=== PATIENT | female | born 1950 | race Caucasian/White ===

== ENCOUNTER → 2024-10-23 | Outpatient (CLI) | payer MEDICARE, BC, SELFPAY ==
[2024-10-23 17:57] LABS: Alanine Aminotransferase 20 U/L (10-49); Albumin, Serum 4.4 gm/dL (3.4-4.8); Albumin/Globulin Ratio 2.3 (1.2-2.2); Alkaline Phosphatase 90 U/L (46-116); Anion Gap 5 (7-16); Aspartate Amino Transferase 29 U/L (0-34); BUN/Creatinine Ratio 16 Ratio (12-20); Bilirubin,Total 0.2 mg/dL (0.3-1.2); Blood Urea Nitrogen 16 mg/dL (9-23); Calcium 9.3 mg/dL (8.3-10.6); Calcium (Corrected) 9.3 mg/dL (8.5-10.1); Carbon Dioxide 28.8 mMol/L (20.0-31.0); Chloride 105 mMol/L (98-107); Globulin 1.9 gm/dL (2.3-3.5); Glucose 143 mg/dL (74-106); Osmolality,Calculated 280 (275-295); Potassium 4.3 mMol/L (3.4-5.1); Sodium 139 mMol/L (136-145); Total Protein 6.3 gm/dL (5.7-8.2); eGFR 58 See Note
[2024-10-23 17:59] LABS: Vitamin D 25 Hydroxy Total 91.1 ng/mL (7.3-40.2)
== END | disposition home or self-care (01) ==
LOC: COPL 16:20
PROVIDERS: PCP Family Medicine; Referring Provider Internal Medicine; Visit Provider Internal Medicine
DX: F34.1 Dysthymic disorder (principal); M51.35 Other intervertebral disc degeneration, thoracolumbar region; M81.0 Age-related osteoporosis without current pathological fracture; S32.050A Wedge compression fracture of fifth lumbar vertebra, initial encounter for closed fracture; X58.XXXA Exposure to other specified factors, initial encounter
CPT/HCPCS: 36415; 80053; 82306

== ENCOUNTER → 2024-11-14 | Outpatient (CLI) | payer MEDICARE, BC, SELFPAY ==
--- NOTE | 2024-11-14 | XR_ITS ---
Examination: PA lateral chest 2 views TECHNIQUE: Upright PA lateral chest 2 views Exam date and time: November 14, 2024 0725 hours Comparison January 10, 2023 INDICATIONS: Coughing 6 weeks, diagnosis coccidiomycosis. FINDINGS: Bilateral interstitial disease throughout the lungs with prominent hilar regions No major cardiac enlargement Prominent osteopenia IMPRESSION: Bilateral interstitial disease throughout the lungs, differential would include pulmonary fibrosis Consider high resolution CT chest without contrast follow-up
[2024-11-14 08:08] LABS: Basophils % (Auto) 1 % (0-2.5); Eosinophils # (Auto) 0.2 Thou/mm3 (0.0-0.5); Eosinophils % (Auto) 4 % (0-10); Hemoglobin 11.7 g/dL (12.0-16.0); Immature Granulocytes % (Auto) 0 % (0-0); Immature Granulocytes Auto 0.01 Thou/mm3 (0.00-0.00); Lymphocytes # (Auto) 1.5 Thou/mm3 (1.0-4.8); Lymphocytes % (Auto) 27 % (10-50); Mean Corpuscular HGB Conc 32.5 g/dl (31.0-37.0); Mean Corpuscular Hemoglobin 31.2 pg (25.0-35.0); Mean Corpuscular Volume 96 fL (80-100); Monocytes # (Auto) 0.6 Thou/mm3 (0.0-0.8); Monocytes % (Auto) 10 % (0-12); Neutrophils # (Auto) 3.1 Thou/mm3 (1.8-7.7); Neutrophils % (Auto) 58 % (37-80); Nucleated Red Blood Cell % 0 /100 WBC (0); Platelet Count 182 Thou/mm3 (140-440); Red Blood Count 3.75 Miln/mm3 (4.00-5.20); White Blood Count 5.4 Thou/mm3 (3.6-11.0)
[2024-11-14 08:30] LABS: Alanine Aminotransferase 27 U/L (10-49); Albumin, Serum 4.2 gm/dL (3.4-4.8); Albumin/Globulin Ratio 2.2 (1.2-2.2); Alkaline Phosphatase 85 U/L (46-116); Anion Gap 6 (7-16); Aspartate Amino Transferase 25 U/L (0-34); BUN/Creatinine Ratio 16 Ratio (12-20); Bilirubin,Total 0.4 mg/dL (0.3-1.2); Blood Urea Nitrogen 13 mg/dL (9-23); Calcium 9.2 mg/dL (8.3-10.6); Calcium (Corrected) 9.2 mg/dL (8.5-10.1); Cardiac Risk Estimate 2.7 RATIO (3.7-5.6); Chloride 105 mMol/L (98-107); Cholesterol 179 mg/dL (132-200); Creatinine (Component) 0.8 mg/dL (0.6-1.3); Globulin 1.9 gm/dL (2.3-3.5); Glucose 89 mg/dL (74-106); HDL Cholesterol 66 mg/dL (40-60); LDL Cholesterol,Calculated 82 mg/dL (0-130); Osmolality,Calculated 280 (275-295); Potassium 4.4 mMol/L (3.4-5.1); Sodium 141 mMol/L (136-145); Total Protein 6.1 gm/dL (5.7-8.2); Triglycerides 154 mg/dL (30-150); eGFR > 60 See Note
[2024-11-14 08:32] LABS: Folate 21.37 ng/mL (>5.38); Vitamin B12 709 pg/mL (211-911)
[2024-11-14 08:35] LABS: Ferritin 40 ng/mL (7.3-270.7); Total Iron Binding Capacity 291 mcg/dL (250-425)
[2024-11-14 08:44] LABS: Iron 98 mcg/dL (50-170); Percent Iron Saturation 33 % (20-55); Unsaturated Iron Binding 193 (225-295)
[2024-11-14 09:53] LABS: Amphetamine/Methamp Scrn,U Negative (Negative); Barbiturate Screen,Urine Positive (Negative); Benzodiazepines Screen,Urine Negative (Negative); Benzoylecgonine Screen, Ur Negative (Negative); Fentanyl Screen,Urine Negative (Negative); Opiate Screen,Urine Positive (Negative); THC Screen,Urine Negative (Negative)
[2024-11-14 14:26] LABS: Cocci Serology, IgM Negative (Negative)
[2024-11-15 14:49] LABS: Cocci Serology, IgG Negative (Negative)
== END | disposition home or self-care (01) ==
LOC: CDIM 06:48 → COPL 07:52
PROVIDERS: PCP Family Medicine; Referring Provider Internal Medicine; Visit Provider Radiology Diagnostic Radiology
DX: J84.89 Other specified interstitial pulmonary diseases (principal); R05.9 Cough, unspecified; G62.9 Polyneuropathy, unspecified; E78.5 Hyperlipidemia, unspecified; Z79.891 Long term (current) use of opiate analgesic; D64.9 Anemia, unspecified
CPT/HCPCS: 36415; 71046; 80053; 80061; 80307; 82607; 82728; 82746; 83540; 83550; 85025; 86331; 86635

== ENCOUNTER → 2024-11-26 | Outpatient (CLI) | payer MEDICARE, BC, SELFPAY ==
--- NOTE | 2024-11-26 11:00 | XR_ITS ---
Examination: CT chest, without intravenous contrast. Sagittal and coronal 2-D reconstructions. Exam date and time: November 26, 2024 1101 hours INDICATIONS: Coughing wheezing beginning one year ago, subpleural fibrosis with bronchiectasis on CT chest August 18, 2021 CTDI:vol (mGy) 8.85 DLP: (mGycm) 278 Technique: Multiple 3.0 mm axial sections of the chest to been obtained. Bone and lung density settings are obtained. Sagittal and coronal 2-D reconstructions have been obtained. Low dose protocols were performed. One or more of the following dose reduction techniques were used; automated exposure control, adjustment of the mA and/or KV according to patient size, use of iterative reconstruction technique. Findings: No thoracic aortic aneurysm dilatation or dissection Main pulmonary artery segment is enlarged, 34 mm Moderate to severe bilateral pulmonary fibrosis Benign calcified granuloma left lower lobe Large retrocardiac hernia, most of the stomach is in the hemithorax No visualized liver or splenic lesions Absent gallbladder Fatty replacement pancreas Mild bilateral hydronephrosis, clinical correlation advised IMPRESSION: Pulmonary artery hypertension Moderate to severe bilateral pulmonary fibrosis Mild bilateral hydronephrosis, consider CT scan abdomen pelvis without contrast follow-up
== END | disposition home or self-care (01) ==
LOC: CCTX 10:34
PROVIDERS: PCP Family Medicine; Referring Provider Family Medicine; Visit Provider Family Medicine
DX: I27.21 Secondary pulmonary arterial hypertension (principal); J84.10 Pulmonary fibrosis, unspecified; N13.30 Unspecified hydronephrosis
CPT/HCPCS: 71250

== ENCOUNTER → 2024-11-27 | Outpatient (CLI) | payer MEDICARE, BC, SELFPAY ==
[2024-11-27 08:36] LABS: Quantiferon-TB* See Sep Rpt
[2024-11-27 09:52] LABS: Calcium 9.5 mg/dL (8.3-10.6)
[2024-11-27 09:56] LABS: Vitamin D 25 Hydroxy Total 71.8 ng/mL (7.3-40.2)
[2024-12-03 06:58] LABS: Vitamin D, 25-OH, D2 <4 ng/mL; Vitamin D, 25-OH, D3 73 ng/mL; Vitamin D, 25-OH, Total 73 ng/mL (30-100)
== END | disposition home or self-care (01) ==
LOC: COPL 08:13
PROVIDERS: PCP Family Medicine; Referring Provider Nurse Practitioner; Visit Provider Internal Medicine
DX: R05.9 Cough, unspecified (principal); E67.3 Hypervitaminosis D
CPT/HCPCS: 36415; 82306; 82310; 86480

== ENCOUNTER 2025-03-30 05:47 | Inpatient (IN) | payer MEDICARE, BC, SELFPAY ==
[2025-03-30] VITALS (18 sets, daily range): BP systolic 93–124; BP diastolic 59–90; PULSE 96–120; RESP 20–47; TEMP 36.1–37.2; O2SAT 93–113; BMI 22.7
--- NOTE | 2025-03-30 06:14 | EKG_ITS ---
[facility] Test Date: 2025-03-30 Pat Name: CLAUS ALVAREZ Department: Room: - Gender: Female [place]ler [place]: : 1950 Requested By: Fox Jeffrey Order Number: [id number] Reading MD: Fox Jeffrey Measurements Intervals [place] Rate: 119 P: AL: QRS: -6 QRSD: 70 T: -25 QT: 322 QTc: 454 Interpretive Statements ATRIAL FLUTTER/TACHYCARDIA WITH RAPID VENTRICULAR RESPONSE ST DEVIATION AND MODERATE T-WAVE ABNORMALITY, CONSIDER ANTERIOR ISCHEMIA [-0.1+ mV T-WAVE IN V3/V4] No previous ECG available for comparison /store/S0/[id number].pdf
--- NOTE | 2025-03-30 06:30 | XR_ITS ---
Examination: AP chest single view TECHNIQUE: AP portable upright chest single view Date and time: March 30, 2025 0706 hours Comparison November 14, 2024 INDICATIONS: Shortness of breath today FINDINGS: Bilateral pulmonary fibrosis pattern Superimposed bilateral pneumonia Mild enlargement cardiac contour Suspicious for retrocardiac gastric hernia Old fracture deformity right clavicle IMPRESSION: Bilateral pulmonary fibrosis pattern, please see the CT chest report November 26, 2024 Diffuse superimposed bilateral pneumonia
--- NOTE | 2025-03-30 06:43 | EDNOTE_ITS ---
ED SOB =RME/HPI General Chief Complaint: Shortness of Breath/Dyspnea Stated Complaint: SOB Time Seen by Provider: 03/30/25 06:15 Arrival date/time: 03/30/25 05:47 RME / HPI RME / HPI Narrative: 75-year-old female with a history of hypertension who has had 2 months of worsening dyspnea on exertion who now presents with 5 days of acute worsening of the shortness of breath. She states this is now causing her to feel weak and having difficulty breathing both during the day with exertion and while at night. She also notes a new dry cough in these last 5 days. She denies fevers chills or sweats. She denies sick contact. She initially seen her primary care doctor approximately 2 months ago and was started on albuterol with minimal improvement. On follow-up visit she was advanced to [facility] and given 2 days of steroids . She notes mild improvement at that point. She denies chest pain. She denies nausea vomiting or diarrhea. She denies dysuria. She denies lower extremity swelling. Patient denies pulmonary history prior to 2 months, no history of asthma, no smoking history. MD Complaint: shortness of breath and cough Related Data Home oxygen amount: none Home Medications ?Medication ?Instructions ?Recorded ?Confirmed atorvastatin 10 mg tablet 10 mg PO QDAY 06/18/2306/18 hydrocodone 7.5 mg-acetaminophen 1 tab PO Q6H PRN Back Pain 06/18/23 06/18/23 325 mg tablet Held on 06/18/23. Instructions: Resume on 06/19/23. losartan 50 mg tablet 50 mg PO BID 06/18/23 omeprazole 20 mg capsule,delayed 20 mg PO QDAY 3 06/18/23 release Allergies Allergy/AdvReac Type Severity Reaction Status Date / Time meperidine Allergy Mild Anxiety Verified 03/30/25 06:14 Review of Systems Review of Systems Systems Reviewed: All systems reviewed, normal except as documented Past Medical History Past Medical History CARDIAC: Positive Cardiac Disorders, Hypercholesterolemia and Hypertension GASTROINTESTINAL: Positive Gastrointestinal Disorders and Gastroesophageal Reflux Disease MUSCULOSKELETAL: Positive Musculoskeletal Disorders Family History FAMILY HISTORY: Positive Family Cancer Surgical History SURGICAL: Positive Nose Surgery (sinus surgery) and Tonsillectomy Social History SMOKING STATUS: Never smoker ED Exam Narrative Physical exam: GENERAL APPEARANCE: AxOx4, in moderate respiratory distress, speaking 3-4 word sentences. HEENT: NC, AT. MMM. EOMI, no scleral icterus, no pallor HEART: Tachycardic and regular rhythm, normal S1/S1, no m/r/g LUNGS: Diminished breath sounds in all lung sharma, faint expiratory and i nspiratory sounds/wheezing on the left lung field very diminished on the right. No crackles or wheezes are heard. ABDOMEN: Soft, nontender, nondistended with good bowel sounds heard. BACK: No midline C/T/L spine pain or deformity, No CVAT, no obvious deformity. EXTREMITIES: Without cyanosis, clubbing or trace lower extremity pitting edema. MUSCULOSKELETAL: FROM of all major joints, no chest tenderness NEUROLOGICAL: Grossly nonfocal. Alert and oriented, moving all 4 extremities. CN not formally tested but appear grossly intact. Observed to ambulate with normal gait. Skin: Warm and dry without any rash. Course Quality Measures none Orders Category Date Time Status Bedside COVID-19 Antigen Test NOW Care 03/30/25 07:15 Active COVID-19 Screening Questionnaire NOW Care 03/30/25 08:13 Active Decision to Admit X1 Care 03/30/25 08:13 Completed EKG (ED ONLY) *Do not use* NOW Care 03/30/25 06:14 Completed IV [Insert IV] NOW Care 03/30/25 06:40 Active EKG (ED Only) Stat Exams 03/30/25 06:14 Ordered XR chest 1V portable Stat Exams 03/30/25 06:30 Completed ABG [Arterial Blood Gas] Stat Lab 03/30/25 08:27 Completed BNP [B-Type Natriuretic Peptide] Stat Lab 03/30/25 06:42 Completed Blood Culture (Lab) Stat Lab 03/30/25 08:00 Received CBC Stat Lab 03/30/25 06:42 Completed CMP [Comprehensive Metabolic Panel] Stat Lab 03/30/25 06:42 Completed Lactate (Lactic Acid) Stat Lab 03/30/25 08:05 Results Procalcitonin Stat Lab 03/30/25 08:05 Completed Troponin I Stat Lab 03/30/25 06:42 Completed ALBUTEROL RT 0.5ml [Proventil Rt 0.5ml] Med 03/30/25 06:30 Discontinued 10 mg INH X1 ONE Doxycycline [Vibramycin] Med 03/30/25 07:40 Discontinued 100 mg PO X1 ONE Furosemide Inj [Lasix Inj] Med 03/30/25 07:55 Discontinued 40 mg IVP X1 ONE MethylPREDNISolone.* [SoluMEDROL Inj] Med 03/30/25 06:30 Discontinued 125 mg IVP X1 ONE Sodium Chloride 0.9% 500 ml [Ns] 500 ml Med 03/30/25 06:33 Discontinued IV 999 mls/hr Sodium Chloride Rt Marisa 0.9% [NS Rt Marisa 0.9%] Med 03/30/25 06:30 Active 3 ml INH PRN PRN cefTRIAXone [Rocephin] 1,000 mg Med 03/30/25 07:40 Discontinued Lidocaine 1% 20 ml [Xylocaine 1% 20 ML] 2.1 ml IM X1 cefTRIAXone/D5w 1gm IV premix [Rocephin/D5w 1gm IV Med 03/30/25 08:34 Discontinued premix] 1 gm in 50 ml IV X1 BiPAP / CPAP NOW RT 03/30/25 08:06 Active Vital Signs Vital signs: Vital Signs Temperature 97.6 F 03/30/25 05:55 Pulse Rate 120 H 03/30/25 05:55 Respiratory Rate 20 03/30/25 05:55 Blood Pressure 96/67 03/30/25 05:55 Pulse Oximetry (%) 96 03/30/25 05:55 Oxygen Delivery Method Nasal Cannula 03/30/25 05:55 Oxygen Flow Rate 6 03/30/25 05:55 Shortness of Breath / Dyspnea Patient data External records reviewed:: [facility] previous records (I reviewed ED visit on 06/18/2023 ) and EMS form Clinical information provided by:: patient and EMS Social determinants that could affect healthcare access:: none Patient has the following chronic illnesses:: Hypertension, hyperlipidemia How is presenting disease/condition affected by chronic disease/condition?: uneffected by Evaluation data The following diagnostics were reviewed and interpreted by me:: lab results, radiology exam(s) and EKG tracing(s) (EKG 03/30/2025 @ 0625. Sinus tachycardia, MAT, rate 119, no STEMI. ) Lab and/or radiology exams considered but not ordered:: None Interpretation Summary: Ordering Physician: Fox Jeffrey MD Date of Service: 03/30/25 Procedure(s): XR chest 1V portable Accession Number(s): [id number] cc: Fox Jeffrey MD; Sajan Corley MD; Catracho Vicente MD~ Examination: AP chest single view TECHNIQUE: AP portable upright chest single view Date and time: March 30, 2025 0706 hours Comparison November 14, 2024 INDICATIONS: Shortness of breath today FINDINGS: Bilateral pulmonary fibrosis pattern Superimposed bilateral pneumonia Mild enlargement cardiac contour Suspicious for retrocardiac gastric hernia Old fracture deformity right clavicle IMPRESSION: Bilateral pulmonary fibrosis pattern, please see the CT chest report November 26, 2024 Diffuse superimposed bilateral pneumonia Dictated By:Sajan Corley MD Signed By:<Electronically signed by Sajan Corley MD in OV>03/30/25 0748 Medications / Prescriptions Medications or Prescriptions considered but not ordered:: None Medication administrations:: Medication Administration History Acetaminophen (Acetaminophen 325 Mg Tablet) 650 mg PO Q6H PRN PRN Reason: Fever >101.5 Stop: 04/29/25 08:56 Albuterol/Ipratropium (Albuterol/Ipratropium (Duoneb) Rt Marisa 3 Ml Nebu) 3 ml INH Q4HRRT [facility] Stop: 04/29/25 10:59 Last Admin: 03/30/25 10:21 Dose: 3 ml Documented By: TEE Enoxaparin Sodium (Enoxaparin Sod Inj 40 Mg/0.4 Ml Syringe) 40 mg SC QDAY [facility] Stop: 04/13/25 08:59 Last Admin: 03/30/25 09:33 Dose: Not Given Documented By: DORIAN Non-Admin Reason: Patient Refused Ceftriaxone Sodium/Dextrose (Rocephin/D5w 1gm Iv Premix) 1 gm in 50 mls @ 100 mls/hr IV QDAY [facility] Stop: 04/07/25 08:59 Doxycycline Hyclate 100 mg/ (Sodium Chloride) 100 mls @ 100 mls/hr IV BID [facility] Stop: 04/06/25 20:59 Methylprednisolone Sodium Succinate (Methylprednisolone Sod Succ 62.5 Mg/Ml 2ml Vial) 40 mg IVP Q8H [facility] Stop: 04/06/25 09:59 Ondansetron HCl (Ondansetron Inj 2 Mg/Ml Inj 2 Ml) 4 mg IVP Q6H PRN; Protocol PRN Reason: NAUSEA OR VOMITING Stop: 04/29/25 08:56 Last Admin: 03/30/25 10:11 Dose: 4 mg Documented By: LUIS Sennosides (Senna Tablet) 1 tab PO QDAY PRN; Protocol PRN Reason: constipation Stop: 04/29/25 08:56 Sodium Chloride (Sodium Chloride Rt Marisa 0.9% 3 Ml Nebu) 3 ml INH PRN PRN PRN Reason: SOLN Stop: 04/29/25 06:29 Discontinued Medications Albuterol (Albuterol Rt 2.5 Mg/0.5 Ml Nebu) 10 mg INH X1 ONE Stop: 03/30/25 06:31 Last Admin: 03/30/25 07:00 Dose: 10 mg Documented By: TEE Ceftriaxone Sodium 1,000 mg/ (Lidocaine HCl 2.1 ml) 0 mg IM X1 ONE Stop: 03/30/25 07:41 Last Admin: 03/30/25 08:34 Dose: Not Given Documented By: DORIAN Non-Admin Reason: Discontinued Doxycycline Hyclate (Doxycycline 100 Mg Tablet) 100 mg PO X1 ONE Stop: 03/30/25 07:41 Last Admin: 03/30/25 08:14 Dose: 100 mg Documented By: DORIAN Furosemide (Furosemide Inj 10 Mg/Ml 4ml Vial) 40 mg IVP X1 ONE Stop: 03/30/25 07:56 Last Admin: 03/30/25 08:13 Dose: 40 mg Documented By: DORIAN Sodium Chloride (Ns) 500 mls @ 999 mls/hr IV .Q31M ONE Stop: 03/30/25 07:03 Last Infusion: 03/30/25 08:35 Dose: Infused Documented By: Admin: 03/30/25 07:20 Dose: 999 mls/hr Documented By: DORIAN Ceftriaxone Sodium/Dextrose (Rocephin/D5w 1gm Iv Premix) 1 gm in 50 mls @ 100 mls/hr IV X1 ONE Stop: 03/30/25 09:03 Last Infusion: 03/30/25 10:32 Dose: Infused Documented By: Admin: 03/30/25 08:40 Dose: 100 mls/hr Documented By: DORIAN Sodium Chloride (Ns) 1,000 mls @ 70 mls/hr IV .[id number] [facility] Stop: 04/29/25 09:44 Last Admin: 03/30/25 10:33 Dose: Not Given Documented By: DORIAN Non-Admin Reason: Discontinued Methylprednisolone Sodium Succinate (Methylprednisolone Sod Succ 62.5 Mg/Ml 2ml Vial) 125 mg IVP X1 ONE Stop: 03/30/25 06:31 Last Admin: 03/30/25 07:19 Dose: 125 mg Documented By: DORIAN See above Consultations Consultation(s) initiated? (list below): Yes Consultation #1 (Physician, Specialty, Details): I left a message for engineering scientist Dr. Caceres regarding starting patient on heparin vs no heparin. Time: 08:00 Consultation #2 (Physician, Specialty, Details): I spoke with resident Dr. Nino working with Dr. Simon. Discussed patients PMHx, HPI, ED course, exam findings, labs, and radiology results. The hospitalist agree to accept the patient for admission. Time: 08:08 Consultation #3 (Physician, Specialty, Details): 08: I spoke with engineering scientist Dr. Caceres. Discussed patients PMHx, HPI, ED course, exam findings, labs, and radiology results. Will come evaluated the patient in the ED. 0920: Cloth Napping Supervisor Dr. Caceres at bedside performing an echo. Reports the right ventricle appears enlarged and findings most indicative of pulmonary hypertension, no congestive heart failure. Advised slowly giving fluids if indicated. Diagnosis Shortness of Breath Differential Diagnosis: acute exacerbation of chronic obstructive airways disease, congestive heart failure, community acquired pneumonia and asthma with exacerbation Most likely diagnosis given after review of the tests above:: Respiratory failure Pulmonary fibrosis Interstitial pneumonia Admission Indicated Admission indicated?: indicated Admission Request Was there a request for admission?: Yes Admission Attestation Admission request attestation: Discussed case with [] from Hospitalist service regarding admission. Discussed patients ED course, exam findings, labs, and radiology results. The Hospitalist [agrees,declines] to accept the patient for admission. Disposition Plan Disposition Plan: Admit Critical Care Time Critical Care Time Critical Care Time: Yes Total Critical Care Time (min.): 35 Attestation: Excluding billable procedures for the rapid response, analysis, management, treatment, and documentation to prevent the very possible risk of cardiopulmonary decompensation and/or The high probability of sudden, clinically significant deterioration in the patient's condition required the highest level of my preparedness to intervene urgently. The services I provided to this patient were to treat and/or prevent clinically significant deterioration. Services included the following: chart data review, reviewing nursing notes and/or old charts, documentation time, chain sales consultant collaboration regarding findings and treatment options, medication orders and management, direct patient care, vital sign assessments and ordering, interpreting and reviewing diagnostic studies and lab tests. Aggregate critical care time includes only time during which I was engaged in work directly related to the patient's care, as described above, whether at bedside or elsewhere in the Emergency Department. It did not include time spent performing other reported procedures or the services of residents, students, nurses or physician assistants. Discharge Plan Plan Patient Disposition: Admit Acute Care w/in Hospital Problem List Clinical Impression: Respiratory failure, Pulmonary fibrosis, Interstitial pneumonia
[2025-03-30 07:00] LABS: Basophils % (Auto) 0 % (0-2.5); Eosinophils % (Auto) 0 % (0-10); Hematocrit 42.2 % (36.0-46.0); Hemoglobin 14.1 g/dL (12.0-16.0); Immature Granulocytes % (Auto) 1 % (0-0); Immature Granulocytes Auto 0.11 Thou/mm3 (0.00-0.00); Lymphocytes # (Auto) 0.6 Thou/mm3 (1.0-4.8); Lymphocytes % (Auto) 5 % (10-50); Mean Corpuscular HGB Conc 33.4 g/dl (31.0-37.0); Mean Corpuscular Hemoglobin 31.2 pg (25.0-35.0); Mean Corpuscular Volume 93 fL (80-100); Monocytes # (Auto) 0.7 Thou/mm3 (0.0-0.8); Monocytes % (Auto) 6 % (0-12); Neutrophils # (Auto) 10.9 Thou/mm3 (1.8-7.7); Neutrophils % (Auto) 89 % (37-80); Nucleated Red Blood Cell % 0 /100 WBC (0); Platelet Count 343 Thou/mm3 (140-440); RDW Standard Deviation 48.9 fL (36.4-46.3); Red Blood Count 4.52 Miln/mm3 (4.00-5.20); White Blood Count 12.3 Thou/mm3 (3.6-11.0)
[2025-03-30] MEDS: ALBUTEROL RT 2.5 MG/0.5 ML NEBU 10 MG INH (07:00)
[2025-03-30] MEDS: MethylPREDNISolone SOD SUCC 62.5 MG/ML 2ML VIAL 125 MG IVP (07:19)
[2025-03-30] MEDS: SODIUM CHLORIDE 0.9% 500 ML 500 ML 999 ML IV (07:20)
[2025-03-30 07:26] LABS: Alanine Aminotransferase 34 U/L (10-49); Albumin, Serum 4.4 gm/dL (3.4-4.8); Albumin/Globulin Ratio 1.6 (1.2-2.2); Alkaline Phosphatase 145 U/L (46-116); Anion Gap 17 (7-16); Aspartate Amino Transferase 81 U/L (0-34); BUN/Creatinine Ratio 15 Ratio (12-20); Bilirubin,Total 1.1 mg/dL (0.3-1.2); Blood Urea Nitrogen 19 mg/dL (9-23); Calcium 9.6 mg/dL (8.3-10.6); Calcium (Corrected) 9.6 mg/dL (8.5-10.1); Carbon Dioxide 20.1 mMol/L (20.0-31.0); Chloride 98 mMol/L (98-107); Creatinine (Component) 1.3 mg/dL (0.6-1.3); Globulin 2.7 gm/dL (2.3-3.5); Glucose 172 mg/dL (74-106); Osmolality,Calculated 276 (275-295); Potassium 4.8 mMol/L (3.4-5.1); Sodium 135 mMol/L (136-145); Total Protein 7.1 gm/dL (5.7-8.2); eGFR 42 See Note
[2025-03-30 07:30] LABS: Troponin I 0.984 ng/mL (0.0-0.045)
[2025-03-30 07:46] LABS: B-Type Natriuretic Peptide 829 pg/mL (0-100)
[2025-03-30] MEDS: FUROSEMIDE INJ 10 MG/ML 4ML VIAL 40 MG IVP (08:13)
[2025-03-30] MEDS: DOXYCYCLINE 100 MG TABLET PO (08:14)
[2025-03-30 08:20] LABS: Lactate (Lactic Acid) 5.7 mMol/L (0.4-2.0)
[2025-03-30 08:32] LABS: Allen Test Performed/OK; Base Excess -7 (-3-3); HCO3 18 mEq/L (20-26); Inspired Oxygen, FIO2 40 %; O2 Saturation 97 % (91-98); PCO2 33 mmHg (32.0-48.0); PO2 97 mmHg (83-108); Puncture Site Right Radial; pH, Arterial 7.34 (7.35-7.45)
[2025-03-30] MEDS: cefTRIAXone/D5w 1gm IV premix 1 GM/50 ML BAG IV (08:40)
[2025-03-30 08:41] LABS: Procalcitonin 0.42 ng/ml (0.0-0.49)
--- NOTE | 2025-03-30 08:50 | ECHO_ITS ---
Transthoracic Echo Report Ht (in): 63 Wt (lb): 128 Exam Location: Echo Lab Status: Inpatient Core Setter: Karrie Noel Indications: Procedure Performed: BP: 121 / 72 HR: 124 Technical Quality: Technically Difficult Study Due to Lung Interference MEASUREMENTS (Male / Female) Normal Values 2D ECHO LV Diastolic Diameter PLAX 2.5 cm 4.2 - 5.9 / 3.9 - 5.3 cm LV Systolic Diameter PLAX 1.6 cm IVS Diastolic Thickness 0.8 cm 0.6 - 1.0 / 0.6 - 0.9 cm LVPW Diastolic Thickness 0.7 cm 0.6 - 1.0 / 0.6 - 0.9 cm LV Relative Wall Thickness 0.6 LVOT Diameter 1.9 cm LA Volume Index 31.0 cm?/m? 16 - 28 cm?/m? DOPPLER AV Peak Velocity 112.0 cm/s AV Peak Gradient 5.0 mmHg LVOT Peak Velocity 88.3 cm/s LVOT Peak Gradient 3.1 mmHg AV Area Cont Eq pk 2.2 cm? MV Area PHT 3.5 cm? Mitral E Point Velocity 49.6 cm/s Mitral A Point Velocity 93.0 cm/s Mitral E to A Ratio 0.5 TR Peak Velocity 281.6 cm/s TR Peak Gradient 31.7 mmHg PV Peak Velocity 80.2 cm/s PV Peak Gradient 2.6 mmHg FINDINGS Left Ventricle Normal left ventricular size, wall thickness, with no obvious regional wall motion abnormalities. The ejection fraction is visually estimated at 70 %. Unable to assess diastolic dysfunction due to tachycardia. Right Ventricle There is moderate global hypokensis in the right ventricle. The right ventricular cavity size is at the upper limits of normal. The right ventriuclar systolic pressure is estimated at 32mmHg. Left Atrium The left atrial cavity size is mildly increased. Right Atrium The right atrial cavity size is severely increased. Atrial Septum The interatrial septum appears normal with no evidence of a shunt. Aorta The aorta is normal by two-dimensional, color flow and Doppler interrogation. Mitral Valve The mitral valve is not well visualized due to lung interference. There is no significant mitral valve regurgitation. Aortic Valve The aortic valve is trileaflet and normal by two-dimensional, color flow and Doppler interrogation. There is no significant aortic valve regurgitation. Tricuspid Valve The tricuspid valve is normal by two-dimensional, color flow and Doppler interrogation. There is mild tricuspid valve regurgitation. Pulmonic Valve The pulmonic valve is not well visualized. There is no significant pulmonic valve regurgitation. Vessels The pulmonary artery appears normal. The inferior vena cava pulmonary and hepatic veins appear normal. Pericardium The pericardium is not well visualized. There is a small loculated pericardial effusion with no signs of tamponade. CONCLUSIONS Indications: CHF; Assess Right Heart Normal LV size and wall thickness. Hyperdynamic systolic function. LV EF 70% Right ventricle is dilated with mild dysfunction. Moderate pulmonary hypertension PA PRESSURE EST 55 MMHG Mild TR. Small loculated pericardial effusion. Estela Horne (Electronically Signed) Final Date: 31 March 2025 23:16
[2025-03-30 09:41] LABS: Lactate (Lactic Acid) 5.4 mMol/L (0.4-2.0)
[2025-03-30] MEDS: ONDANSETRON INJ 2 MG/ML INJ 2 ML 4 MG IVP (10:11)
[2025-03-30 10:21] LABS: Troponin I 1.054 ng/mL (0.0-0.045)
[2025-03-30] MEDS: ALBUTEROL/IPRATROPIUM (Duoneb) RT SOL 3 ML NEBU INH ×4 (10:21→23:54)
[2025-03-30 11:11] LABS: Reflex Lactate? Y
--- NOTE | 2025-03-30 11:28 | PC.CC ---
MARINA Church completed a face to face initial assessment with the pt at bedside ER #[id number]. ASW explained the reasons for the initial assessment and pt understood. Pt was cooperative and friendly, alert and coherent of place and time. Pt confirmed all her demographics and stated she resides with her spouse Nakul Carrasco [phone]. Pt reports her PCP is Dr. Vicente but it will transition to Dr. Howard. Pt reports her specialty providers are Dr. Zavaleta, Clothing Patternmaker; Dr. Alvarez, OBGYN located in [place]. Pt reports her Pharmacy is [facility] in [place]. Pt states that prior to coming to the hospital, she was doing her own ADLs, with no help, but admits that she had difficulty cooking, cleaning and bathing. Pt reports she care takes for her spouse who is dx with dementia and this also causes her stress and feels at times it is a burden. Pt reports he does not use DME nor does she use O2. However, pt reports that she was supposed to be on O2 but [employer] never delivered the proper equipment she needed. Pt reports she is a Full Code, but states that after 2 months of being in the hospital, she will transition to a DNR, as per pt. Pt reports that her spouse is her Power of Concrete [employer]. Pt reports that if she were to be offered SNF, she may consider it, but would need to speak with her spouse about that decision. Pt reports she does not receive home health nor does she receive hospice care. Pt reports she has her spouse and neighbor for supports. Next of Kin: Nakul Danilo [phone] or [phone]. Decision Maker: Nakul Danilo [phone] or [phone]. Needs: Pt will need O2, upon dc as she stated she was supposed to be using O2 at home, but [facility] never sent the proper equipment. PCP: Dr. Vicente Full Code
[2025-03-30 11:29] LABS: Lactate (Lactic Acid) 5.2 mMol/L (0.4-2.0)
[2025-03-30 12:26] LABS: Reflex Lactate? Y
[2025-03-30 14:27] LABS: Reflex Lactate? Y
[2025-03-30 15:19] LABS: Lactate (Lactic Acid) 3.5 mMol/L (0.4-2.0)
[2025-03-30 15:44] LABS: Troponin I 1.189 ng/mL (0.0-0.045)
--- NOTE | 2025-03-30 15:55 | ESHP_ITS ---
Documentation for date of: 03/30/25 [facility] History of Present Illness Chief complaint: SOB History of present illness: Bebe Carrasco is 75 yr female with PMH of HTN, HLD, depression, neuropathy presenting with chief complaint of shortness of breath worsening in the past 2 days. Patient's and neighbor/friend were at bedside. Most history was obtained from the friend. Stated that a few weeks ago patient went to [place] for evaluation by wood borer who diagnosed her with pulmonary fibrosis. Patient was to receive home oxygen which was never delivered. Eventually went to clinic in [place] for new order of home oxygen. Tank was delivered previous Sunday. Patient stated that she used the oxygen for about 1 hour on 3 L when she started experiencing some nausea, headache due to the tubing smell. Patient stopped using oxygen and acutely deteriorated over the weekend. Pulse ox readings ranged from 75-80%. She denies any new medications or history of smoking, known close facility who smokes. Endorses decreased oral intake since past week and weakness to the point where she was unable to get out of bed. Patient has not been started on any medication per pulmonology. States that she needs to follow-up, has been difficult for her to get an appointment due to specialist being out of town. Denies any chest pain, abdominal pain, dysuria, lower extremity swelling. In ED, BP was soft 96/67, tachycardia heart rate 120, RR 20, afebrile on 6 L nasal cannula saturating 96%. She was eventually transition to BiPAP due to worsening shortness of breath and increased oxygen requirements. CBC shows mild leukocytosis of 12.3. ABG unremarkable. Lactic acid elevated 5.7, troponins mildly elevated 0.985. BNP 900. CXR showed b/l pulmonary fibrosis pattern. CT chest from 10/2024 showed fibrosis with enlarged pulmonary artery. She was given doxycycline 100, furosemide IV 40, IV methylprednisone 125 mg, albuterol 10 while in the ED. Cardiology Dr. Caceres was consulted. Patient admitted for AHRF 2/2 pulmonary fibrosis exacerbation. PMH: as noted above PSH: Cholecystectomy FamHx: Negative for cancer, negative for genetic lung disease Social: Lives with , able to complete ADLs without difficulty otherwise, denies smoking, denies drinking. Meds: Escitalopram 20 mg, gabapentin 300 mg 3 times daily, losartan 50, atorvastatin 10 mg Allergies: Meperidine casues anxiety Review of Systems Review of Systems Systems Reviewed: All systems reviewed, normal except as documented Exam Vital Signs Temp Pulse Resp BP Pulse Ox O2 Del Method O2 Flow Rate 98.7 F 99 24 H 113/59 L 99 Oxy Mask 15 03/30/25 14:23 03/30/25 15:32 03/30/25 15:32 03/30/25 14:23 03/30/25 15:32 03/30/25 14:23 03/30/25 15:32 FiO2 30 03/30/25 08:16 Narrative Exam General: Elderly female, on BiPAP, No acute distress, cooperative HEENT: NCAT, No JVD noted. Mucosa dry. Pupils are equal and reactive to light bilaterally Cardiovascular: Normal S1 and S2. Regular rate and rhythm. Respiratory: poor air movement Abdomen: Soft, nontender, not distended, normal bowel sounds. Skin: Warm to touch, dry, no rashes noted Musculoskeletal: No gross injuries. Able to move all 4 extremities. No pitting edema Neuro: Alert and oriented x3. No focal neuro deficits. Psych: Normal affect and mood Results: Labs 04/05/25 05:24 04/05/25 05:24 Labs: Short CBC 03/30/25 Range/Units 06:42 WBC 12.3 H (3.6-11.0) Thou/mm3 Hgb 14.1 (12.0-16.0) g/dL Hct 42.2 (36.0-46.0) % Plt Count 343 (140-440) Thou/mm3 BMP 03/30/25 06:42 Sodium 135 L Potassium 4.8 Chloride 98 Carbon Dioxide 20.1 BUN 19 Creatinine 1.3 Glucose 172 H Calcium 9.6 Cardiac Enzymes 03/30/25 03/30/25 03/30/25 Range/Units 06:42 09:19 15:02 Troponin I 0.984 H* 1.054 H* 1.189 H* (0.0-0.045) ng/mL Liver Function 03/30/25 Range/Units 06:42 Total Bilirubin 1.1 (0.3-1.2) mg/dL AST 81 H (0-34) U/L ALT 34 (10-49) U/L Alkaline Phosphatase 145 H (46-116) U/L Albumin 4.4 (3.4-4.8) gm/dL ABG Interpretation ABG results: 03/30/25 08:27 ABG pH 7.34 L ABG pCO2 33 ABG pO2 97 ABG HCO3 18 L ABG O2 Saturation 97 ABG Base Excess -7 L Quality Measures Quality Measures none Advance care planning discussed with:: patient Medications Home Medications and Allergies Home Medications ?Medication ?Instructions ?Recorded ?Confirmed ?Type atorvastatin 10 mg tablet 10 mg PO QDAY 06/18/2303/30 History hydrocodone 7.5 mg-acetaminophen 1 tab PO Q6H PRN Back Pain 06/18/23 03/30/25 History 325 mg tablet losartan 50 mg tablet 50 mg PO BID 06/18/23 History omeprazole 20 mg capsule,delayed 20 mg PO QDAY 3 03/30/25 History release citalopram 20 mg tablet 20 mg PO QDAY 03/30/2503/30 History fluticasone fur. 200 mcg-umeclid 1 inh inhalation Q24H 03/30/25 03/30/25 History 62.5 mcg-vilant 25 mcg inhalat.powder (Trelegy Ellipta) gabapentin 300 mg capsule 300 mg PO TID 03/30/2503/30 History Allergies Allergy/AdvReac Type Severity Reaction Status Date / Time meperidine Allergy Mild Anxiety Verified 03/30/25 06:14 Visit Medications Acetaminophen (Acetaminophen 325 Mg Tablet) 650 mg PO Q6H PRN PRN Reason: Fever >101.5 Stop: 04/29/25 08:56 Albuterol/Ipratropium (Albuterol/Ipratropium (Duoneb) Rt Marisa 3 Ml Nebu) 3 ml INH Q4HRRT [facility] Stop: 04/29/25 10:59 Last Admin: 03/30/25 15:31 Dose: 3 ml Enoxaparin Sodium (Enoxaparin Sod Inj 40 Mg/0.4 Ml Syringe) 40 mg SC QDAY [facility] Stop: 04/13/25 08:59 Last Admin: 03/30/25 09:33 Dose: Not Given Furosemide (Furosemide Inj 10 Mg/Ml 4ml Vial) 40 mg IVP QDAY [facility] Stop: 04/30/25 08:59 Ceftriaxone Sodium/Dextrose (Rocephin/D5w 1gm Iv Premix) 1 gm in 50 mls @ 100 mls/hr IV QDAY [facility] Stop: 04/07/25 08:59 Doxycycline Hyclate 100 mg/ (Sodium Chloride) 100 mls @ 100 mls/hr IV BID [facility] Stop: 04/06/25 20:59 Methylprednisolone Sodium Succinate (Methylprednisolone Sod Succ 40 Mg Vial) 60 mg IVP TID [facility] Stop: 04/06/25 13:59 Last Admin: 03/30/25 14:55 Dose: 60 mg Ondansetron HCl (Ondansetron Inj 2 Mg/Ml Inj 2 Ml) 4 mg IVP Q6H PRN; Protocol PRN Reason: NAUSEA OR VOMITING Stop: 04/29/25 08:56 Last Admin: 03/30/25 10:11 Dose: 4 mg Pantoprazole Sodium (Pantoprazole 40 Mg Tablet) 40 mg PO QDAY [facility] Stop: 04/29/25 15:59 Sennosides (Senna Tablet) 1 tab PO QDAY PRN; Protocol PRN Reason: constipation Stop: 04/29/25 08:56 Sodium Chloride (Sodium Chloride Rt Marisa 0.9% 3 Ml Nebu) 3 ml INH PRN PRN PRN Reason: SOLN Stop: 04/29/25 06:29 Discontinued Medications Albuterol (Albuterol Rt 2.5 Mg/0.5 Ml Nebu) 10 mg INH X1 ONE Stop: 03/30/25 06:31 Last Admin: 03/30/25 07:00 Dose: 10 mg Ceftriaxone Sodium 1,000 mg/ (Lidocaine HCl 2.1 ml) 0 mg IM X1 ONE Stop: 03/30/25 07:41 Last Admin: 03/30/25 08:34 Dose: Not Given Doxycycline Hyclate (Doxycycline 100 Mg Tablet) 100 mg PO X1 ONE Stop: 03/30/25 07:41 Last Admin: 03/30/25 08:14 Dose: 100 mg Doxycycline Hyclate (Doxycycline 100 Mg Tablet) 100 mg PO BID [facility] Stop: 04/06/25 20:59 Furosemide (Furosemide Inj 10 Mg/Ml 4ml Vial) 40 mg IVP X1 ONE Stop: 03/30/25 07:56 Last Admin: 03/30/25 08:13 Dose: 40 mg Sodium Chloride (Ns) 500 mls @ 999 mls/hr IV .Q31M ONE Stop: 03/30/25 07:03 Last Infusion: 03/30/25 08:35 Dose: Infused Ceftriaxone Sodium/Dextrose (Rocephin/D5w 1gm Iv Premix) 1 gm in 50 mls @ 100 mls/hr IV X1 ONE Stop: 03/30/25 09:03 Last Infusion: 03/30/25 10:32 Dose: Infused Sodium Chloride (Ns) 1,000 mls @ 70 mls/hr IV .[id number] [facility] Stop: 04/29/25 09:44 Last Admin: 03/30/25 10:33 Dose: Not Given Methylprednisolone Sodium Succinate (Methylprednisolone Sod Succ 62.5 Mg/Ml 2ml Vial) 125 mg IVP X1 ONE Stop: 03/30/25 06:31 Last Admin: 03/30/25 07:19 Dose: 125 mg Methylprednisolone Sodium Succinate (Methylprednisolone Sod Succ 62.5 Mg/Ml 2ml Vial) 40 mg IVP Q8H [facility] Stop: 04/06/25 09:59 Assessment & Plan Plan Bebe Carrasco is 75 yr female with PMH of HTN, HLD, depression, neuropathy presenting with chief complaint of shortness of breath worsening in the past 2 days. She had difficulty obtaining oxygen tank and once delivered was only using for short time due to issues with tubing. Patient admitted for AHRF 2/2 pulmonary fibrosis exacerbation. #AHRF 2/2 pulmonary fibrosis exacerbation SOB worsening with home pulse ox readings 75-80%. Stated that a few weeks ago patient went to [place] for evaluation by wood borer who diagnosed her with pulmonary fibrosis. There was a delay in delivery for home oxygen. Finally received the tank after seeing PCP in [place]. Was delivered past Sunday however used for only a short time due to tubing issues. She acutely deteriorated and presented to ED requiring BiPAP. She denies any history of smoking or exposure to smoke. ?DuoNeb q4hr -- IV Ceftriaxone 1 g daily ? IV Doxycycline 100 mg BID ?IV methylprednisone 60 mg TID ?Pantoprazole 40 mg p.o. daily -transition to OR and monitor pulse ox -close follow up with pulmonology out patient #NSTEMI, type II Likely demand ischemia in setting of pulmonary fibrosis. EKG negative for any acute ST changes. Troponins 0.[address] Caceres consulted who did bedside echo. Estimated EF to be around 60%. There is evidence of enlarged pulmonary arteries seen on CT. Echo also showed dilated right side of the heart. -trend troponins -Appreciate cardiology recs -follow up with cardiology outpatient. -consider RHC #Elevated lactic acid No evidence of infection however could be type A in setting of hypoxemia due to her pulmonary fibrosis. LA 5.7 on admission. -trend lactic acid #Hx hypertension #Hx hyperlipidemia #Hx depression #Hx neuropathy Resumed home meds: ?Escitalopram 20 mg daily ? Gabapentin 300 mg TID ?Atorvastatin 10 mg daily ? Holding BP medication as blood pressure is soft Health maintenance: Dispo: tele for [facility] FEN: regular DVT prophylaxis: Lovenox CODE STATUS: Full code The patient's management plan was discussed with my attending physician Dr. Simon. Ruchi Nino, PGY-1 Attending Provider Attestation/Addendum 75-year-old female with multiple comorbidities including hypertension, hyperlipidemia and recent diagnosis of pulmonary fibrosis who presented with shortness of breath found to have acute hypoxic respiratory failure secondary to pulmonary fibrosis exacerbation. Of note, patient was prescribed during her last visit to her wood borer however was in the process of obtaining it. Currently, plan to admit the patient and start patient on Rocephin, doxycycline, breathing treatment and methylprednisone. Will monitor patient closely given risk for decompensation.I reviewed above note and agree with findings and plans. I have also personally examined the patient with medicine team and went over assessment and plan with medical team including sport internship and resident physician.
[2025-03-30] MEDS: HYDROcodone/APAP 7.5/325 TABLET 1 TAB PO ×2 (16:36→22:38)
[2025-03-30] MEDS: PANTOPRAZOLE 40 MG TABLET PO (16:36)
[2025-03-30 17:48] LABS: Lactate (Lactic Acid) 3.3 mMol/L (0.4-2.0)
[2025-03-30] MEDS: guaiFENesin SYRUP 200 MG/10 ML UDC 100 MG PO ×2 (18:14→22:39)
[2025-03-30 18:15] LABS: Reflex Lactate? Y
[2025-03-30] MEDS: DOXYCYCLINE INJ 100 MG in SODIUM CHLORIDE 0.9% (POP) 100 ML IV (20:27)
[2025-03-30 20:43] LABS: Reflex Lactate? Y
[2025-03-30] MEDS: GABAPENTIN 300 MG CAPSULE PO (21:25)
[2025-03-30 22:17] LABS: Troponin I 1.199 ng/mL (0.0-0.045)
--- NOTE | 2025-03-30 23:02 | ESCONSULT_ITS ---
RE: CLAUS ALVAREZ : 1950 DATE OF CONSULTATION: 03/30/2025 CONSULTING PHYSICIANS: Emergency room physician Dr. Jeffrey and hospitalist Dr. Simon REASON FOR CONSULTATION: Evaluation of acute hypoxic respiratory failure. CHIEF COMPLAINT: Severe shortness of breath. HISTORY OF PRESENT ILLNESS: The patient is a 75-year-old female with a longstanding history of hypertension and hypercholesterolemia, known to me, had a cardiac workup in 2020 including a PET scan that was normal. Echocardiogram was normal. She has been diagnosed with interstitial lung disease about a year ago, mild interstitial pulmonary fibrosis, has been doing well until recently in the last few weeks. She is having severe shortness of breath. In fact, I saw her in my office with her . She was not that short of breath 3-4 weeks ago when I saw her last time. The last week or so, she had severe worsening of shortness of breath and mild cough, but no expectorations. The patient apparently was seen by a hospice case manager recently, diagnosed with pulmonary fibrosis. CT scan of the chest confirmed pulmonary fibrosis. Chest x-ray in October showed mild abnormality, but not that significant at that time, but she had progressive worsening of shortness of breath over the last few weeks. Initially, she was somewhat hypotensive, was given fluids of 500 mL, but immediately shortness of breath worsened significantly. Concern was raised over volume overload and heart failure, hence I was consulted. I examined the patient in the emergency room. The patient was found to be clinically somewhat on the dry side, but there is some jugular venous distention noted, but no edema of the feet. Chest x-ray definitely showed significant marker change from October in 5 months. Complete white appearance with bilateral alveolar interstitial infiltrates, fluffy nature with cardiac silhouette not being seen well. Highly suspicious interstitial lung disease process, but more of an acute process, possible interstitial pneumonia and fibrosis rather than just fibrosis alone. The patient is severely hypoxic, requires high flow oxygen. She was given a dose of Lasix because there were concerns of elevated BNP and possible volume overload with HFpEF. I did a bedside echo showing ejection fraction of 65 to 70%. Left ventricular function is quite normal. Right atrium and right ventricle appeared to be moderately dilated. Could not get the PA pressure, but appears to be dilated definitely. She was also given a small dose of Lasix with some improvement of shortness of breath consistent with possible fluid overload. ALLERGIES: NONE. MEDICATIONS: She takes at home medications including losartan for hypertension. She is also on atorvastatin 10 mg daily, omeprazole 20 mg daily, pain medication and inhalers. PAST MEDICAL HISTORY: Mild hypertension, hypercholesterolemia, gastroesophageal reflux disease. Negative cardiac workup in 2020 including nuclear scan negative. Interstitial lung disease, interstitial fibrosis diagnosed recently. SOCIAL HISTORY: The patient is and lives with her . She is a nonsmoker. She does not have any alcoholic beverages. FAMILY HISTORY: Noncontributory. REVIEW OF SYSTEMS: Cardiovascular: No chest pain reported. Shortness of breath and cough, mild dry cough. Gastrointestinal: No nausea or vomiting. Pulmonary: History of progressive shortness of breath. No orthopnea or PND. Genitourinary: No frequency or dysuria. PHYSICAL EXAMINATION: GENERAL: Well-nourished thin built female. Alert, awake, acute respiratory distress. VITAL SIGNS: Blood pressure 120/70, pulse rate is 80 to 90, respirations 32, pulse oximetry 97% on OxyMask, high-flow oxygen. HEENT: Head is atraumatic, normocephalic. Eyes are normal. NECK: Supple. Patient is using accessory muscles and also jugular venous distension is noted about 5 cm above sternal angle. CHEST: Symmetrical. LUNGS: Bilateral crackles and mild wheezing. HEART: S1, S2, regular, tachycardia. ABDOMEN: Thin and soft. EXTREMITIES: No EMG. GENITOURINARY AND RECTAL: Not performed. NEUROLOGIC: Unremarkable. DIAGNOSTIC DATA: Electrocardiogram showed sinus tachycardia and nonspecific changes. Cardiac enzymes; there was slight abnormality of enzymes, elevation, mild troponin elevation was detected. Troponic level was definitely elevated. Initial troponin was 0.98, went up to 1.05 and 1.11. The lactic acid level was quite high initially 5.4, 5.2, coming down up to 2.0 by this evening. Electrolytes; sodium is , potassium 4.8. BNP on admission is clearly elevated at . CBC showed white count , hemoglobin 14. A chest CT was performed that showed definitely evidence of [id number] pulmonary fibrosis, interstitial lung disease, possible pulmonary hypertension, pulmonary arteries enlarged to 34 mm. Gallbladder was absent. There were mild bilateral hydronephrosis. There was also chest CT done in October that showed definite evidence of pulmonary artery hypertension and [id number] pulmonary fibrosis was seen as well at that time. IMPRESSION/ASSESSMENT: 1. Acute hypoxic respiratory failure secondary to interstitial lung disease, pulmonary fibrosis, possible superinfection with interstitial pneumonia with acute worsening of symptoms. 2. Pulmonary hypertension with right heart enlargement on bedside echocardiogram. 3. Elevated troponin level, possibly due to right ventricular strain and hypoxia, type 2 troponin elevation, doubt very much myocardial infarction. 4. History of hypertension, now hypotension. 5. Severe interstitial lung disease, interstitial pneumonia. RECOMMENDATIONS: The patient is a 75-year-old with history of hypertension, progressive shortness of breath for last few weeks, definitely severely worsening of shortness of breath requiring high flow oxygen now. Has diagnosis of pulmonary fibrosis already made, but definite dramatic change in pulmonary condition with some infiltration and interstitial lungs, possible viral pneumonia or other types of pneumonia to be ruled out. The patient should be continued on antibody therapy. Might want to also consider checking for [place] fever. The patient has troponin elevation up to , possibly type 2 troponin level based on clinical picture, but if it continues to go up and if she does not improve, we will consider assessment of coronary artery disease. A cardiac echocardiogram will be added for assessment of left-sided systolic and diastolic function, pulmonary artery pressure, and right heart pressure. I would like to continue oxygen, antibiotics, and continue careful admission, IV fluids 100 mL an hour. If there is any sign of volume overload, will give diuretic to patient. But it is good to see ejection fraction normal on the bedside echo, but there is definite right heart abnormalities, possibly due to lung disease and cor pulmonale picture, possibly acute cor pulmonale as well. There is a possibility of shunting as well, could cause hypoxemia, with elevated right heart pressure, should there is a PFO. In any event, we will continue to monitor the patient. We will watch the patient after echo. I will review the patient tomorrow again. DT: 21:36:54 TT: 23:01:00 Ref: [id number] - TID: [id number]
[2025-03-31] VITALS (12 sets, daily range): BP systolic 113–135; BP diastolic 72–84; PULSE 84–124; RESP 19–30; TEMP 36–36.6; O2SAT 90–99
[2025-03-31] MEDS: ALBUTEROL/IPRATROPIUM (Duoneb) RT SOL 3 ML NEBU INH ×6 (03:49→22:06)
[2025-03-31] MEDS: GABAPENTIN 300 MG CAPSULE PO ×3 (05:31→21:36)
[2025-03-31 05:37] LABS: Basophils % (Auto) 0 % (0-2.5); Eosinophils % (Auto) 0 % (0-10); Hematocrit 37.4 % (36.0-46.0); Hemoglobin 12.8 g/dL (12.0-16.0); Immature Granulocytes % (Auto) 1 % (0-0); Immature Granulocytes Auto 0.13 Thou/mm3 (0.00-0.00); Lymphocytes # (Auto) 0.6 Thou/mm3 (1.0-4.8); Lymphocytes % (Auto) 3 % (10-50); Mean Corpuscular HGB Conc 34.2 g/dl (31.0-37.0); Mean Corpuscular Hemoglobin 31.4 pg (25.0-35.0); Mean Corpuscular Volume 92 fL (80-100); Monocytes # (Auto) 0.9 Thou/mm3 (0.0-0.8); Monocytes % (Auto) 5 % (0-12); Neutrophils # (Auto) 17.5 Thou/mm3 (1.8-7.7); Neutrophils % (Auto) 92 % (37-80); Nucleated Red Blood Cell % 0 /100 WBC (0); Platelet Count 306 Thou/mm3 (140-440); RDW Standard Deviation 48.5 fL (36.4-46.3); Red Blood Count 4.07 Miln/mm3 (4.00-5.20)
[2025-03-31 06:01] LABS: Alanine Aminotransferase 24 U/L (10-49); Albumin, Serum 3.9 gm/dL (3.4-4.8); Albumin/Globulin Ratio 1.5 (1.2-2.2); Alkaline Phosphatase 129 U/L (46-116); Anion Gap 11 (7-16); Aspartate Amino Transferase 41 U/L (0-34); BUN/Creatinine Ratio 28 Ratio (12-20); Bilirubin,Total 0.3 mg/dL (0.3-1.2); Blood Urea Nitrogen 36 mg/dL (9-23); Calcium 8.6 mg/dL (8.3-10.6); Calcium (Corrected) 8.7 mg/dL (8.5-10.1); Carbon Dioxide 27.1 mMol/L (20.0-31.0); Chloride 104 mMol/L (98-107); Creatinine (Component) 1.3 mg/dL (0.6-1.3); Globulin 2.6 gm/dL (2.3-3.5); Glucose 168 mg/dL (74-106); Magnesium 2.5 mg/dL (1.6-2.6); Osmolality,Calculated 295 (275-295); Phosphorous 4.2 mg/dL (2.4-5.1); Potassium 4.8 mMol/L (3.4-5.1); Sodium 142 mMol/L (136-145); Total Protein 6.5 gm/dL (5.7-8.2); eGFR 42 See Note
[2025-03-31 06:02] LABS: Troponin I 0.846 ng/mL (0.0-0.045)
[2025-03-31] MEDS: HYDROcodone/APAP 7.5/325 TABLET 1 TAB PO ×3 (06:38→21:36)
[2025-03-31] MEDS: guaiFENesin SYRUP 200 MG/10 ML UDC 100 MG PO ×2 (06:38→21:37)
[2025-03-31] MEDS: SODIUM CHLORIDE 0.9% 1000 ML 1,000 ML 100 ML IV (08:09)
[2025-03-31] MEDS: ATORVASTATIN CALCIUM 10 MG TABLET PO (08:10)
[2025-03-31] MEDS: ENOXAPARIN SOD INJ 40 MG/0.4 ML SYRINGE SC (08:10)
[2025-03-31] MEDS: cefTRIAXone/D5w 1gm IV premix 1 GM/50 ML BAG IV (08:10)
[2025-03-31] MEDS: CITALOPRAM 20 MG TABLET PO (08:10)
[2025-03-31] MEDS: PANTOPRAZOLE 40 MG TABLET PO (08:19)
[2025-03-31] MEDS: DOXYCYCLINE INJ 100 MG in SODIUM CHLORIDE 0.9% (POP) 100 ML IV ×2 (08:19→21:36)
[2025-03-31 12:16] LABS: Troponin I 0.829 ng/mL (0.0-0.045)
--- NOTE | 2025-03-31 14:18 | PD.RESPRO ---
Documentation for date of: 03/31/25 Subjective Subjective Interval history: Patient examined at bedside. No events overnight, no major complaints. Patient states that she is feeling much better since yesterday. Vital stable with 95% oxygenation on 9 L oxy mask. Will slowly wean down oxygen. Continue antibiotics and IV steroids in setting of her underlining pulmonary fibrosis and pneumonia. Echo, blood cultures, cocci serology pending. Leukocytosis 19 most likely reactive due to steroids. Other labs stable with troponins down trended. Lactic acidosis resolved. Patient was counseled on importance of closely following up with pulmonology after discharge. Exam Vital Signs Temp Pulse Resp BP Pulse Ox O2 Del Method O2 Flow Rate 97.8 F 104 H 24 H 113/83 93 L Oxy Mask 9 03/31/25 12:00 03/31/25 12:00 03/31/25 12:00 03/31/25 12:00 03/31/25 12:00 03/31/25 12:00 03/31/25 12:00 FiO2 30 03/30/25 08:16 Narrative Exam General: Elderly female, on oxymask, No acute distress, cooperative HEENT: NCAT, No JVD noted. Mucosa dry. Pupils are equal and reactive to light bilaterally Cardiovascular: Normal S1 and S2. Regular rate and rhythm. Respiratory: b/L wheezing Abdomen: Soft, nontender, not distended, normal bowel sounds. Skin: Warm to touch, dry, no rashes noted Musculoskeletal: No gross injuries. Able to move all 4 extremities. No pitting edema Neuro: Alert and oriented x3. No focal neuro deficits. Psych: Normal affect and mood Objective Labs 04/05/25 05:24 04/05/25 05:24 Labs: Laboratory Results - last 24 hr 03/30/25 03/30/25 03/30/25 15:02 17:40 21:07 WBC RBC Hgb Hct MCV MCH MCHC RDW Std Deviation Plt Count Neut % (Auto) Lymph % (Auto) [place] % (Auto) Eos % (Auto) Baso % (Auto) Neut # (Auto) Lymph # (Auto) [place] # (Auto) Eos # (Auto) Baso # (Auto) Immature Gran # (Auto) Absolute Nucleated RBC Immature Gran % Nucleated RBC % Sodium Potassium Chloride Carbon Dioxide Anion Gap BUN Creatinine Estim Creat Clear Calc eGFR BUN/Creatinine Ratio Glucose Calculated Osmolality Lactic Acid 3.5 H 3.3 H 2.0 Calcium Corrected Calcium Phosphorus Magnesium Total Bilirubin AST ALT Alkaline Phosphatase Troponin I 1.189 H* 1.199 H* Total Protein Albumin Globulin Albumin/Globulin Ratio 03/31/25 03/31/25 05:09 11:14 WBC 19.0 H D RBC 4.07 Hgb 12.8 Hct 37.4 MCV 92 MCH 31.4 MCHC 34.2 RDW Std Deviation 48.5 H Plt Count 306 D Neut % (Auto) 92 H Lymph % (Auto) 3 L [place] % (Auto) 5 Eos % (Auto) 0 Baso % (Auto) 0 Neut # (Auto) 17.5 H Lymph # (Auto) 0.6 L [place] # (Auto) 0.9 H Eos # (Auto) 0.0 Baso # (Auto) 0.0 Immature Gran # (Auto) 0.13 H Absolute Nucleated RBC 0.00 Immature Gran % 1 H Nucleated RBC % 0 Sodium 142 Potassium 4.8 Chloride 104 Carbon Dioxide 27.1 Anion Gap 11 BUN 36 H Creatinine 1.3 Estim Creat Clear Calc 30.0 L eGFR 42 L BUN/Creatinine Ratio 28 H Glucose 168 H Calculated Osmolality 295 Lactic Acid Calcium 8.6 Corrected Calcium 8.7 Phosphorus 4.2 Magnesium 2.5 Total Bilirubin 0.3 D AST 41 H ALT 24 Alkaline Phosphatase 129 H Troponin I 0.846 H* D 0.829 H* Total Protein 6.5 Albumin 3.9 D Globulin 2.6 Albumin/Globulin Ratio 1.5 ABG Interpretation ABG results: 03/30/25 08:27 ABG pH 7.34 L ABG pCO2 33 ABG pO2 97 ABG HCO3 18 L ABG O2 Saturation 97 ABG Base Excess -7 L Quality Measures Quality Measures none Advance care planning discussed with:: patient Assessment & Plan Assessment Current Active Medications: Generic Name Dose Route Start Last Admin Trade Name Freq PRN Reason Stop Dose Admin Acetaminophen 650 mg 03/30/25 08:57 Acetaminophen 325 Mg Tablet PO 04/29/25 08:56 Q6H PRN Fever >101.5 Hydrocodone Bitart/Acetaminophen 1 tab 03/30/25 15:55 03/31/25 06:38 Hydrocodone/Apap 7.5/325 Tablet PO 04/04/25 15:54 1 tab Q6H PRN Administration Back Pain 6-10 Albuterol/Ipratropium 3 ml 03/30/25 11:00 03/31/25 10:34 Albuterol/Ipratropium (Duoneb) Rt Marisa 3 Ml Nebu INH 04/29/25 10:59 3 ml Q4HRRT WALDEMAR Administration Atorvastatin Calcium 10 mg 03/31/25 09:00 03/31/25 08:10 Atorvastatin Calcium 10 Mg Tablet PO 04/30/25 08:59 10 mg QDAY WALDEMAR Administration Citalopram Hydrobromide 20 mg 03/31/25 09:00 03/31/25 08:10 Citalopram 20 Mg Tablet PO 04/30/25 08:59 20 mg QDAY WALDEMAR Administration Enoxaparin Sodium 40 mg 03/30/25 09:00 03/31/25 08:10 Enoxaparin Sod Inj 40 Mg/0.4 Ml Syringe SC 04/13/25 08:59 40 mg QDAY WALDEMAR Administration Gabapentin 300 mg 03/30/25 22:00 03/31/25 13:33 Gabapentin 300 Mg Capsule PO 04/29/25 21:59 300 mg TID WALDEMAR Administration Guaifenesin 100 mg 03/30/25 17:18 03/31/25 06:38 Guaifenesin Syrup 200 Mg/10 Ml Udc PO 04/29/25 17:17 100 mg QID PRN Administration COUGH Protocol Ceftriaxone Sodium/Dextrose 1 gm in 50 mls @ 100 mls/hr 03/31/25 09:00 03/31/25 08:10 Rocephin/D5w 1gm Iv Premix IV 04/07/25 08:59 100 mls/hr QDAY WALDEMAR Administration Doxycycline Hyclate 100 mg/ 100 mls @ 100 mls/hr 03/30/25 21:00 03/31/25 08:19 Sodium Chloride IV 04/06/25 20:59 100 mls/hr BID WALDEMAR Administration Methylprednisolone Sodium Succinate 60 mg 03/30/25 14:00 03/31/25 13:33 Methylprednisolone Sod Succ 40 Mg Vial IVP 04/06/25 13:59 60 mg TID WALDEMAR Administration Ondansetron HCl 4 mg 03/30/25 08:57 03/30/25 10:11 Ondansetron Inj 2 Mg/Ml Inj 2 Ml IVP 04/29/25 08:56 4 mg Q6H PRN Administration NAUSEA OR VOMITING Protocol Pantoprazole Sodium 40 mg 03/30/25 16:00 03/31/25 08:19 Pantoprazole 40 Mg Tablet PO 04/29/25 15:59 40 mg QDAY WALDEMAR Administration Sennosides 1 tab 03/30/25 08:57 Senna Tablet PO 04/29/25 08:56 QDAY PRN constipation Protocol Sodium Chloride 3 ml 03/30/25 06:30 Sodium Chloride Rt Marisa 0.9% 3 Ml Nebu INH 04/29/25 06:29 PRN PRN SOLN Plan Bebe Carrasco is 75 yr female with PMH of HTN, HLD, depression, neuropathy presenting with chief complaint of shortness of breath worsening in the past 2 days. She had difficulty obtaining oxygen tank and once delivered was only using for short time due to issues with tubing. Patient admitted for AHRF 2/2 pulmonary fibrosis exacerbation. #AHRF 2/2 pulmonary fibrosis exacerbation #CAP SOB worsening with home pulse ox readings 75-80%. Stated that a few weeks ago patient went to [place] for evaluation by installation coordinator who diagnosed her with pulmonary fibrosis. There was a delay in delivery for home oxygen. Finally received the tank after seeing PCP in [place]. Was delivered past Sunday however used for only a short time due to tubing issues. She acutely deteriorated and presented to ED requiring BiPAP. She denies any history of smoking or exposure to smoke. ?DuoNeb q4hr -- IV Ceftriaxone 1 g daily (03/30- ? IV Doxycycline 100 mg BID (03/30- ?IV methylprednisone 60 mg TID (03/30- ?Pantoprazole 40 mg p.o. daily -continue to wean oxygen -close follow up with pulmonology out patient - Monitor fluid status and plan for diuresis if overloaded -cocci serology pending #Pulmonary arterial hypertension Cardiology Dr. Caceres consulted who did bedside echo. Estimated EF to be around 60%. There is evidence of enlarged pulmonary arteries seen on CT. Echo also showed dilated right side of the heart. -continue management as above -Appreciate cardiology recs -follow up with cardiology outpatient. -complete echo pending #Hx hypertension #Hx hyperlipidemia #Hx depression #Hx neuropathy Resumed home meds: ?Escitalopram 20 mg daily ? Gabapentin 300 mg TID ?Atorvastatin 10 mg daily ? Holding BP medication as blood pressure is soft #NSTEMI, type II-resolved #Elevated lactic acid-resolved Health maintenance: Dispo: tele for [facility] FEN: regular DVT prophylaxis: Lovenox CODE STATUS: Full code The patient's management plan was discussed with my attending physician Dr. Simon. Ruchi Nino, PGY-1 Attending Provider Attestation/Addendum 75-year-old female with multiple comorbidities including hypertension, hyperlipidemia and recent diagnosis of pulmonary fibrosis who presented with shortness of breath found to have acute hypoxic respiratory failure secondary to pulmonary fibrosis exacerbation. Of note, patient was prescribed during her last visit to her installation coordinator however was in the process of obtaining it. Currently, plan to admit the patient and start patient on Rocephin, doxycycline, breathing treatment and methylprednisone. Overnight, patient did require 9 L oxy mask however when talking to her she does become hypoxic and tachypneic. Plan to go up on Solu-Medrol to 80 mg 3 times daily. Will monitor patient closely given risk for decompensation.I reviewed above note and agree with findings and plans. I have also personally examined the patient with medicine team and went over assessment and plan with medical team including architecture intern and resident physician.
--- NOTE | 2025-03-31 14:31 | PC.SS ---
Rounding Note: Echo is pending. Patient utilizing oxygen.
[2025-03-31 18:44] LABS: Troponin I 0.712 ng/mL (0.0-0.045)
[2025-03-31 23:49] LABS: Troponin I 0.561 ng/mL (0.0-0.045)
[2025-04-01] VITALS (12 sets, daily range): BP systolic 109–137; BP diastolic 73–100; PULSE 63–117; RESP 16–32; TEMP 36.1–36.2; O2SAT 90–98
--- NOTE | 2025-04-01 00:31 | ESPR_ITS ---
RE: CLAUS ALVAREZ : 1950 DATE OF SERVICE: 03/31/2025 SUBJECTIVE: The patient is a 75-year-old female with a history of interstitial fibrosis and lung disease. Currently, she came to the hospital with severe hypoxia and respiratory failure. Clinically, she appears to have significant right ventricular enlargement on bedside echo. Official echo done today showed ejection fraction 70%, hypercontractile left ventricle. Right ventricle is dilated. Right atrium is dilated slightly, and there is definite evidence of moderate pulmonary hypertension. PA pressure approximately 50-55 mmHg suggestive of moderate pulmonary hypertension, positive cor pulmonale from lung disease. Her white count went up to 19,000 possibly from corticosteroid therapy. She is receiving methylprednisolone 60 mg three times daily. She received Lasix, but discontinued now, clinically she does not appear to be in heart failure. She is getting breathing treatments, feeling a little better today. She does not complain of any chest pain or shortness of breath today. OBJECTIVE: General: Clinically, she is still on oxygen and continues to improve gradually. Vital Signs: Blood pressure 130/74 mmHg, pulse rate is 100 and tachycardia, respirations 28, and temperature is 96.9. Oxygen saturation is 98% on OxyMask . HEAD: Atraumatic. Neck: Supple. No JVD. Chest: Symmetrical. Lungs: Decreased breath sounds, bilateral crackles. Heart: S1 and S2 regular. Abdomen: Thin and soft. Extremities: No edema. Genitourinary: Not performed. Rectal: Not performed. LABORATORY DATA: White count 19,000. Chemistry panel showed elevated BUN of 36, creatinine 1.3, slightly elevated. Troponin level was up to 1.1 yesterday, 0.7. IMPRESSION: 1. Acute hypoxic respiratory failure secondary to interstitial lung disease, interstitial fibrosis, and pneumonia. 2. Cor pulmonale with right ventricle enlargement and moderate pulmonary hypertension. 3. Troponin elevation, possibly type 2 troponin without very much acute coronary syndrome. RECOMMENDATIONS: The patient will continue with medical management for respiratory failure, hypoxia, and hypoxic respiratory failure secondary to interstitial lung disease and interstitial pneumonia. Antibiotics and steroids are being continued. White count possibly elevated due to corticosteroid therapy and radiation therapy. DT: 23:37:35 TT: 00:24:00 Ref: [id number] - TID: [id number]
[2025-04-01] MEDS: ALBUTEROL/IPRATROPIUM (Duoneb) RT SOL 3 ML NEBU INH ×6 (02:26→23:03)
[2025-04-01 05:36] LABS: Basophils % (Auto) 0 % (0-2.5); Eosinophils % (Auto) 0 % (0-10); Hematocrit 37.2 % (36.0-46.0); Hemoglobin 12.5 g/dL (12.0-16.0); Immature Granulocytes % (Auto) 1 % (0-0); Immature Granulocytes Auto 0.12 Thou/mm3 (0.00-0.00); Lymphocytes # (Auto) 0.3 Thou/mm3 (1.0-4.8); Lymphocytes % (Auto) 2 % (10-50); Mean Corpuscular HGB Conc 33.6 g/dl (31.0-37.0); Mean Corpuscular Hemoglobin 31.6 pg (25.0-35.0); Mean Corpuscular Volume 94 fL (80-100); Monocytes # (Auto) 0.4 Thou/mm3 (0.0-0.8); Monocytes % (Auto) 3 % (0-12); Neutrophils # (Auto) 14.5 Thou/mm3 (1.8-7.7); Neutrophils % (Auto) 95 % (37-80); Nucleated Red Blood Cell % 0 /100 WBC (0); Platelet Count 323 Thou/mm3 (140-440); RDW Standard Deviation 50.1 fL (36.4-46.3); Red Blood Count 3.96 Miln/mm3 (4.00-5.20); White Blood Count 15.3 Thou/mm3 (3.6-11.0)
[2025-04-01] MEDS: GABAPENTIN 300 MG CAPSULE PO ×3 (05:39→21:40)
[2025-04-01] MEDS: HYDROcodone/APAP 7.5/325 TABLET 1 TAB PO ×3 (06:17→21:40)
[2025-04-01 06:37] LABS: Alanine Aminotransferase 26 U/L (10-49); Albumin, Serum 3.7 gm/dL (3.4-4.8); Albumin/Globulin Ratio 1.5 (1.2-2.2); Alkaline Phosphatase 122 U/L (46-116); Anion Gap 11 (7-16); Aspartate Amino Transferase 31 U/L (0-34); BUN/Creatinine Ratio 40 Ratio (12-20); Bilirubin,Total 0.3 mg/dL (0.3-1.2); Blood Urea Nitrogen 36 mg/dL (9-23); Calcium (Corrected) 8.2 mg/dL (8.5-10.1); Carbon Dioxide 25.6 mMol/L (20.0-31.0); Chloride 106 mMol/L (98-107); Creatinine (Component) 0.9 mg/dL (0.6-1.3); Estimated Creatinine Clearance 43.3 mL/min (>60); Globulin 2.4 gm/dL (2.3-3.5); Glucose 165 mg/dL (74-106); Osmolality,Calculated 297 (275-295); Potassium 4.6 mMol/L (3.4-5.1); Sodium 143 mMol/L (136-145); Total Protein 6.1 gm/dL (5.7-8.2); eGFR > 60 See Note
--- NOTE | 2025-04-01 09:23 | PC.SS ---
SS follow up note; GHADA Marshall informed SS that Patient does have home 02 at home however needs tubing and 02 tank from [facility]. SS will contact [facility] to deliver supplies.
--- NOTE | 2025-04-01 09:55 | PC.SS ---
SS follow up note; Patient is on High flow at the time, patient will discharge back home when medically cleared.
[2025-04-01] MEDS: CITALOPRAM 20 MG TABLET PO (09:57)
[2025-04-01] MEDS: ATORVASTATIN CALCIUM 10 MG TABLET PO (09:57)
[2025-04-01] MEDS: DOXYCYCLINE 100 MG TABLET PO ×2 (09:57→21:40)
[2025-04-01] MEDS: cefTRIAXone/D5w 1gm IV premix 1 GM/50 ML BAG IV (09:57)
[2025-04-01] MEDS: PANTOPRAZOLE 40 MG TABLET PO (09:57)
[2025-04-01] MEDS: ENOXAPARIN SOD INJ 40 MG/0.4 ML SYRINGE SC (09:59)
--- NOTE | 2025-04-01 10:29 | XR_ITS ---
Examination: CT chest, without intravenous contrast. Sagittal and coronal 2-D reconstructions. Exam date and time: April 01, 2025 1143 hours Comparison November 26, 2024 INDICATIONS: Coughing shortness of breath worsening this week, diagnosis moderate to severe bilateral pulmonary fibrosis CT chest study November 26, 2024 CTDI:vol (mGy) 13.5 DLP: (mGycm) 376 Technique: Multiple 3.0 mm axial sections of the chest to been obtained. Bone and lung density settings are obtained. Sagittal and coronal 2-D reconstructions have been obtained. Low dose protocols were performed. One or more of the following dose reduction techniques were used; automated exposure control, adjustment of the mA and/or KV according to patient size, use of iterative reconstruction technique. Findings: No thoracic aortic aneurysm dilatation Pulmonary artery segment and main transverse dimension 34 mm No paratracheal tracheobronchial or bronchopulmonary adenopathy Worsening pulmonary fibrosis, currently severe with superimposed bilateral pneumonia Small bilateral pleural effusions Herniation of most of the stomach into the thorax No visualized liver or splenic lesion Absent gallbladder No pancreatic mass IMPRESSION: Worsening severe bilateral pulmonary fibrosis Extensive superimposed bilateral pneumonia
[2025-04-01] MEDS: guaiFENesin SYRUP 200 MG/10 ML UDC 100 MG PO ×2 (11:00→19:54)
--- NOTE | 2025-04-01 12:00 | PD.RESPRO ---
Documentation for date of: 04/01/25 Subjective Subjective Interval history: Patient examined at bedside. Overnight she desaturated to the 70s after a coughing episode and required to be placed on 15 L oxy mask. Sometime later she did improve to 10 L oxy mask. Other vitals are stable. Labs reviewed and stable. Troponins are downtrending. Complete echo results showed EF 70%, hypercontractility of LV, RV dilation, moderate PAH 50-55 mmHg, cor pulmonale secondary to lung disease. Continue IV steroids and antibiotics in setting of pneumonia and fibrosis. Cocci serology is pending. Continue to wean oxygen. Will follow-up with CT chest today and considering goals of care discussion with family pending CT results. Exam Vital Signs Temp Pulse Resp BP Pulse Ox O2 Del Method O2 Flow Rate 97.1 F 102 H 22 H 109/86 H 94 L Oxy Mask 6 04/01/25 08:00 04/01/25 10:54 04/01/25 10:54 04/01/25 08:00 04/01/25 10:54 04/01/25 08:00 04/01/25 10:54 FiO2 30 03/30/25 08:16 Narrative Exam General: Elderly female, on oxymask, No acute distress, cooperative HEENT: NCAT, No JVD noted. Mucosa dry. Pupils are equal and reactive to light bilaterally Cardiovascular: Normal S1 and S2. Regular rate and rhythm. Respiratory: b/L wheezing Abdomen: Soft, nontender, not distended, normal bowel sounds. Skin: Warm to touch, dry, no rashes noted Musculoskeletal: No gross injuries. Able to move all 4 extremities. No pitting edema Neuro: Alert and oriented x3. No focal neuro deficits. Psych: Normal affect and mood Objective Labs 04/05/25 05:24 04/05/25 05:24 Labs: Laboratory Results - last 24 hr 03/31/25 03/31/25 03/31/25 11:14 17:39 23:20 WBC RBC Hgb Hct MCV MCH MCHC RDW Std Deviation Plt Count Neut % (Auto) Lymph % (Auto) [place] % (Auto) Eos % (Auto) Baso % (Auto) Neut # (Auto) Lymph # (Auto) [place] # (Auto) Eos # (Auto) Baso # (Auto) Immature Gran # (Auto) Absolute Nucleated RBC Immature Gran % Nucleated RBC % Sodium Potassium Chloride Carbon Dioxide Anion Gap BUN Creatinine Estim Creat Clear Calc eGFR BUN/Creatinine Ratio Glucose Calculated Osmolality Calcium Corrected Calcium Total Bilirubin AST ALT Alkaline Phosphatase Troponin I 0.829 H* 0.712 H* 0.561 H* Total Protein Albumin Globulin Albumin/Globulin Ratio 04/01/25 04:54 WBC 15.3 H RBC 3.96 L Hgb 12.5 Hct 37.2 MCV 94 MCH 31.6 MCHC 33.6 RDW Std Deviation 50.1 H Plt Count 323 Neut % (Auto) 95 H Lymph % (Auto) 2 L [place] % (Auto) 3 Eos % (Auto) 0 Baso % (Auto) 0 Neut # (Auto) 14.5 H Lymph # (Auto) 0.3 L [place] # (Auto) 0.4 Eos # (Auto) 0.0 Baso # (Auto) 0.0 Immature Gran # (Auto) 0.12 H Absolute Nucleated RBC 0.00 Immature Gran % 1 H Nucleated RBC % 0 Sodium 143 Potassium 4.6 Chloride 106 Carbon Dioxide 25.6 Anion Gap 11 BUN 36 H Creatinine 0.9 Estim Creat Clear Calc 43.3 L eGFR > 60 BUN/Creatinine Ratio 40 H Glucose 165 H Calculated Osmolality 297 H Calcium 8.0 L Corrected Calcium 8.2 L Total Bilirubin 0.3 AST 31 ALT 26 Alkaline Phosphatase 122 H Troponin I Total Protein 6.1 Albumin 3.7 Globulin 2.4 Albumin/Globulin Ratio 1.5 ABG Interpretation ABG results: 03/30/25 08:27 ABG pH 7.34 L ABG pCO2 33 ABG pO2 97 ABG HCO3 18 L ABG O2 Saturation 97 ABG Base Excess -7 L Quality Measures Quality Measures none Advance care planning discussed with:: patient Assessment & Plan Assessment Current Active Medications: Generic Name Dose Route Start Last Admin Trade Name Freq PRN Reason Stop Dose Admin Acetaminophen 650 mg 03/30/25 08:57 Acetaminophen 325 Mg Tablet PO 04/29/25 08:56 Q6H PRN Fever >101.5 Hydrocodone Bitart/Acetaminophen 1 tab 03/30/25 15:55 04/01/25 06:17 Hydrocodone/Apap 7.5/325 Tablet PO 04/04/25 15:54 1 tab Q6H PRN Administration Back Pain 6-10 Albuterol/Ipratropium 3 ml 03/30/25 11:00 04/01/25 10:51 Albuterol/Ipratropium (Duoneb) Rt Marisa 3 Ml Nebu INH 04/29/25 10:59 3 ml Q4HRRT WALDEMAR Administration Atorvastatin Calcium 10 mg 03/31/25 09:00 04/01/25 09:57 Atorvastatin Calcium 10 Mg Tablet PO 04/30/25 08:59 10 mg QDAY WALDEMAR Administration Citalopram Hydrobromide 20 mg 03/31/25 09:00 04/01/25 09:57 Citalopram 20 Mg Tablet PO 04/30/25 08:59 20 mg QDAY WALDEMAR Administration Doxycycline Hyclate 100 mg 04/01/25 09:45 04/01/25 09:57 Doxycycline 100 Mg Tablet PO 04/08/25 09:44 100 mg BID WALDEMAR Administration Protocol Enoxaparin Sodium 40 mg 03/30/25 09:00 04/01/25 09:59 Enoxaparin Sod Inj 40 Mg/0.4 Ml Syringe SC 04/13/25 08:59 40 mg QDAY WALDEMAR Administration Gabapentin 300 mg 03/30/25 22:00 04/01/25 05:39 Gabapentin 300 Mg Capsule PO 04/29/25 21:59 300 mg TID WALDEMAR Administration Guaifenesin 100 mg 03/30/25 17:18 04/01/25 11:00 Guaifenesin Syrup 200 Mg/10 Ml Udc PO 04/29/25 17:17 100 mg QID PRN Administration COUGH Protocol Ceftriaxone Sodium/Dextrose 1 gm in 50 mls @ 100 mls/hr 03/31/25 09:00 04/01/25 09:57 Rocephin/D5w 1gm Iv Premix IV 04/07/25 08:59 100 mls/hr QDAY WALDEMAR Administration Methylprednisolone Sodium Succinate 60 mg 03/30/25 14:00 04/01/25 05:39 Methylprednisolone Sod Succ 40 Mg Vial IVP 04/06/25 13:59 60 mg TID WALDEMAR Administration Ondansetron HCl 4 mg 03/30/25 08:57 03/30/25 10:11 Ondansetron Inj 2 Mg/Ml Inj 2 Ml IVP 04/29/25 08:56 4 mg Q6H PRN Administration NAUSEA OR VOMITING Protocol Pantoprazole Sodium 40 mg 03/30/25 16:00 04/01/25 09:57 Pantoprazole 40 Mg Tablet PO 04/29/25 15:59 40 mg QDAY WALDEMAR Administration Sennosides 1 tab 03/30/25 08:57 Senna Tablet PO 04/29/25 08:56 QDAY PRN constipation Protocol Sodium Chloride 3 ml 03/30/25 06:30 Sodium Chloride Rt Marisa 0.9% 3 Ml Nebu INH 04/29/25 06:29 PRN PRN SOLN Plan Bebe Carrasco is 75 yr female with PMH of HTN, HLD, depression, neuropathy presenting with chief complaint of shortness of breath worsening in the past 2 days. She had difficulty obtaining oxygen tank and once delivered was only using for short time due to issues with tubing. Patient admitted for AHRF 2/2 pulmonary fibrosis exacerbation. #AHRF 2/2 pulmonary fibrosis exacerbation #CAP SOB worsening with home pulse ox readings 75-80%. Stated that a few weeks ago patient went to [place] for evaluation by pre wave assembler who diagnosed her with pulmonary fibrosis. There was a delay in delivery for home oxygen. Finally received the tank after seeing PCP in [place]. Was delivered past Sunday however used for only a short time due to tubing issues. She acutely deteriorated and presented to ED requiring BiPAP. She denies any history of smoking or exposure to smoke. ?DuoNeb q4hr -- IV Ceftriaxone 1 g daily (03/30- ? IV Doxycycline 100 mg BID (03/30- ?IV methylprednisone 60 mg TID (03/30- ?Pantoprazole 40 mg p.o. daily -continue to wean oxygen -close follow up with pulmonology out patient - Monitor fluid status and plan for diuresis if overloaded -cocci serology pending -CT chest pending -will have goals of care discussion with family #Pulmonary arterial hypertension #Cor pulmonale 2/[address] Caceres consulted who did bedside echo. Estimated EF to be around 60%. There is evidence of enlarged pulmonary arteries seen on CT. Echo also showed dilated right side of the heart. Complete echo results showed EF 70%, hypercontractility of LV, RV dilation, moderate PAH 50-55 mmHg, cor pulmonale secondary to lung disease. -continue management as above -Appreciate cardiology recs -follow up with cardiology outpatient. #Hx hypertension #Hx hyperlipidemia #Hx depression #Hx neuropathy Resumed home meds: ?Escitalopram 20 mg daily ? Gabapentin 300 mg TID ?Atorvastatin 10 mg daily ? Holding BP medication as blood pressure is soft #NSTEMI, type II-resolved #Elevated lactic acid-resolved Health maintenance: [facility]: regular DVT prophylaxis: Lovenox CODE STATUS: Full code The patient's management plan was discussed with my attending physician Dr. Simon. Ruchi Nino, PGY-1 Attending Provider Attestation/Addendum 75-year-old female with multiple comorbidities including hypertension, hyperlipidemia and recent diagnosis of pulmonary fibrosis who presented with shortness of breath found to have acute hypoxic respiratory failure secondary to pulmonary fibrosis exacerbation. Of note, patient was prescribed during her last visit to her pre wave assembler however was in the process of obtaining it. Currently, plan to admit the patient and start patient on Rocephin, doxycycline, breathing treatment and methylprednisone. Overnight, patient oxygen requirement about 10 L OxyMask on Solu-Medrol 80 mg 3 times daily. Discussed poor prognosis with patient and at bedside. I reviewed above note and agree with findings and plans. I have also personally examined the patient with medicine team and went over assessment and plan with medical team including communications marketing intern and resident physician.
[2025-04-01 12:08] LABS: Cocci Serology, IgM Negative (Negative)
--- NOTE | 2025-04-01 14:15 | PC.SS ---
SS follow up note; NIURKA contacted [facility] and Spoke to Erika. NIURKA informed her that patient was needing 02 tubings and 02 tank. Erika informed SS that they would be delivering at bedside tomorrow. Patient will discharge home when medically cleared.
--- NOTE | 2025-04-01 23:22 | ESPR_ITS ---
RE: CLAUS ALVAREZ : 1950 DATE OF SERVICE: 04/01/2025 Claus Alvarez appears to be doing a little better today. Still having shortness of breath and requiring high flow 10 liters of oxygen. She still has intermittent episodes of coughing spells and shortness of breath requiring higher flow oxygen. Echo showed excellent LV function, hypercontractility, RV dilation, cor pulmonale, possibly from underlying lung disease and the patient clearly had pneumonia, fibrosis, interstitial lung disease, predominantly causing shortness of breath which is quite concerning, though she is improving but not dramatically, still requiring high flow oxygen. PHYSICAL EXAMINATION: Vital Signs: Blood pressure 110/80, pulse rate is 100, respiratory rate 16, temperature normal. HEENT: Head is atraumatic, normocephalic. Eyes normal. ENT normal. Neck: Supple. No JVD. Chest: Symmetrical. Lungs: Decreased breath sounds. No rales. Heart: S1 and S2 regular. Abdomen: Thin and soft. Extremities: No edema. Genitourinary: Not performed. Rectal: Not performed. Neurologic: Normal. Electrocardiogram showed sinus rhythm, nonspecific changes. IMPRESSION/ASSESSMENT: 1. Shortness of breath secondary to interstitial lung disease and pneumonia. 2. Cor pulmonale secondary to lung disease with moderate pulmonary hypertension. 3. Excellent left ventricular function by echocardiogram. 4. Hypercholesterolemia. RECOMMENDATIONS: Continue antibiotic therapy, bronchodilator and treatment with oxygen supplementation and corticosteroid therapy also being continued. The patient's long-term prognosis is poor, short-term prognosis is guarded. DT: 22:45:45 TT: 22:58:00 Ref: [id number] - TID: [id number] MTDD
[2025-04-02] VITALS (13 sets, daily range): BP systolic 136–146; BP diastolic 77–89; PULSE 82–106; RESP 18–36; TEMP 36.1–36.4; O2SAT 87–99; BMI 22.8
[2025-04-02] MEDS: ALBUTEROL/IPRATROPIUM (Duoneb) RT SOL 3 ML NEBU INH ×6 (02:02→22:50)
[2025-04-02] MEDS: GABAPENTIN 300 MG CAPSULE PO ×3 (05:39→21:00)
[2025-04-02] MEDS: HYDROcodone/APAP 7.5/325 TABLET 1 TAB PO ×3 (05:42→20:09)
[2025-04-02] MEDS: guaiFENesin SYRUP 200 MG/10 ML UDC 100 MG PO ×3 (05:42→20:09)
[2025-04-02 06:12] LABS: Basophils % (Auto) 0 % (0-2.5); Eosinophils % (Auto) 0 % (0-10); Hematocrit 39.6 % (36.0-46.0); Hemoglobin 12.7 g/dL (12.0-16.0); Immature Granulocytes % (Auto) 1 % (0-0); Immature Granulocytes Auto 0.12 Thou/mm3 (0.00-0.00); Lymphocytes # (Auto) 0.4 Thou/mm3 (1.0-4.8); Lymphocytes % (Auto) 3 % (10-50); Mean Corpuscular HGB Conc 32.1 g/dl (31.0-37.0); Mean Corpuscular Hemoglobin 31.1 pg (25.0-35.0); Mean Corpuscular Volume 97 fL (80-100); Monocytes # (Auto) 0.5 Thou/mm3 (0.0-0.8); Monocytes % (Auto) 4 % (0-12); Neutrophils # (Auto) 12.3 Thou/mm3 (1.8-7.7); Neutrophils % (Auto) 92 % (37-80); Nucleated Red Blood Cell % 0 /100 WBC (0); Platelet Count 308 Thou/mm3 (140-440); RDW Standard Deviation 52.4 fL (36.4-46.3); Red Blood Count 4.08 Miln/mm3 (4.00-5.20); White Blood Count 13.3 Thou/mm3 (3.6-11.0)
[2025-04-02 06:27] LABS: Alanine Aminotransferase 27 U/L (10-49); Albumin, Serum 3.5 gm/dL (3.4-4.8); Albumin/Globulin Ratio 1.6 (1.2-2.2); Alkaline Phosphatase 127 U/L (46-116); Anion Gap 9 (7-16); Aspartate Amino Transferase 26 U/L (0-34); BUN/Creatinine Ratio 43 Ratio (12-20); Bilirubin,Total 0.3 mg/dL (0.3-1.2); Blood Urea Nitrogen 34 mg/dL (9-23); Calcium 8.1 mg/dL (8.3-10.6); Calcium (Corrected) 8.5 mg/dL (8.5-10.1); Carbon Dioxide 27.5 mMol/L (20.0-31.0); Chloride 107 mMol/L (98-107); Creatinine (Component) 0.8 mg/dL (0.6-1.3); Estimated Creatinine Clearance 48.7 mL/min (>60); Globulin 2.2 gm/dL (2.3-3.5); Glucose 155 mg/dL (74-106); Osmolality,Calculated 295 (275-295); Sodium 143 mMol/L (136-145); Total Protein 5.7 gm/dL (5.7-8.2); eGFR > 60 See Note
[2025-04-02] MEDS: cefTRIAXone/D5w 1gm IV premix 1 GM/50 ML BAG IV (10:02)
[2025-04-02] MEDS: ENOXAPARIN SOD INJ 40 MG/0.4 ML SYRINGE SC (10:03)
[2025-04-02] MEDS: PANTOPRAZOLE 40 MG TABLET PO (10:03)
[2025-04-02] MEDS: CITALOPRAM 20 MG TABLET PO (10:03)
[2025-04-02] MEDS: DOXYCYCLINE 100 MG TABLET PO ×2 (10:03→21:00)
[2025-04-02] MEDS: ATORVASTATIN CALCIUM 10 MG TABLET PO (10:03)
[2025-04-02 11:17] LABS: Cocci Serology, IgG Negative (Negative)
--- NOTE | 2025-04-02 13:01 | PC.SS ---
Update: Patient remains on high flow oxygen, 10L.
--- NOTE | 2025-04-02 14:29 | ESPR_ITS ---
Documentation for date of: 04/02/25 Subjective Subjective Interval history: Patient examined at bedside. No events overnight. Continues to remain on high oxygen requirements at bedside was saturating 91% on 15 L oxy mask. Due to poor ferry terminal agent prognosis, yesterday goals of care discussion held with patient and . All questions were answered. Yesterday CT chest showed worsening fibrosis with sever overlaying pneumonia. We will continue antibiotics and increase IV steroids to 80 mg methylprednisone TID. Cocci serologies pending. Continue to monitor. Exam Vital Signs Temp Pulse Resp BP Pulse Ox O2 Del Method O2 Flow Rate 97.6 F 105 H 36 H 138/77 H 92 L Oxy Mask 10 04/02/25 12:00 04/02/25 14:13 04/02/25 14:13 04/02/25 12:00 04/02/25 14:13 04/02/25 12:00 04/02/25 14:13 FiO2 30 04/01/25 12:00 Narrative Exam General: Elderly female, on oxymask, No acute distress, cooperative, oxy mask HEENT: NCAT, No JVD noted. Mucosa dry. Pupils are equal and reactive to light bilaterally Cardiovascular: Normal S1 and S2. Regular rate and rhythm. Respiratory: b/L wheezing Abdomen: Soft, nontender, not distended, normal bowel sounds. Skin: Warm to touch, dry, no rashes noted Musculoskeletal: No gross injuries. Able to move all 4 extremities. No pitting edema Neuro: Alert and oriented x3. No focal neuro deficits. Psych: Normal affect and mood Objective Labs 04/05/25 05:24 04/05/25 05:24 Labs: Laboratory Results - last 24 hr 03/31/25 04/02/25 09:20 05:25 WBC 13.3 H RBC 4.08 Hgb 12.7 Hct 39.6 MCV 97 MCH 31.1 MCHC 32.1 RDW Std Deviation 52.4 H Plt Count 308 Neut % (Auto) 92 H Lymph % (Auto) 3 L Pickett % (Auto) 4 Eos % (Auto) 0 Baso % (Auto) 0 Neut # (Auto) 12.3 H Lymph # (Auto) 0.4 L Pickett # (Auto) 0.5 Eos # (Auto) 0.0 Baso # (Auto) 0.0 Immature Gran # (Auto) 0.12 H Absolute Nucleated RBC 0.00 Immature Gran % 1 H Nucleated RBC % 0 Sodium 143 Potassium 5.0 Chloride 107 Carbon Dioxide 27.5 Anion Gap 9 BUN 34 H Creatinine 0.8 Estim Creat Clear Calc 48.7 L eGFR > 60 BUN/Creatinine Ratio 43 H Glucose 155 H Calculated Osmolality 295 Calcium 8.1 L Corrected Calcium 8.5 Total Bilirubin 0.3 AST 26 ALT 27 Alkaline Phosphatase 127 H Total Protein 5.7 Albumin 3.5 Globulin 2.2 L Albumin/Globulin Ratio 1.6 Coccidioides IgG Ab Negative ABG Interpretation ABG results: 03/30/25 08:27 ABG pH 7.34 L ABG pCO2 33 ABG pO2 97 ABG HCO3 18 L ABG O2 Saturation 97 ABG Base Excess -7 L Quality Measures Quality Measures none Advance care planning discussed with:: patient Assessment & Plan Assessment Current Active Medications: Generic Name Dose Route Start Last Admin Trade Name Freq PRN Reason Stop Dose Admin Acetaminophen 650 mg 03/30/25 08:57 Acetaminophen 325 Mg Tablet PO 04/29/25 08:56 Q6H PRN Fever >101.5 Hydrocodone Bitart/Acetaminophen 1 tab 03/30/25 15:55 04/02/25 05:42 Hydrocodone/Apap 7.5/325 Tablet PO 04/04/25 15:54 1 tab Q6H PRN Administration Back Pain 6-10 Albuterol/Ipratropium 3 ml 03/30/25 11:00 04/02/25 14:12 Albuterol/Ipratropium (Duoneb) Rt Marisa 3 Ml Nebu INH 04/29/25 10:59 3 ml Q4HRRT WALDEMAR Administration Atorvastatin Calcium 10 mg 03/31/25 09:00 04/02/25 10:03 Atorvastatin Calcium 10 Mg Tablet PO 04/30/25 08:59 10 mg QDAY WALDEMAR Administration Citalopram Hydrobromide 20 mg 03/31/25 09:00 04/02/25 10:03 Citalopram 20 Mg Tablet PO 04/30/25 08:59 20 mg QDAY WALDEMAR Administration Doxycycline Hyclate 100 mg 04/01/25 09:45 04/02/25 10:03 Doxycycline 100 Mg Tablet PO 04/08/25 09:44 100 mg BID WALDEMAR Administration Protocol Enoxaparin Sodium 40 mg 03/30/25 09:00 04/02/25 10:03 Enoxaparin Sod Inj 40 Mg/0.4 Ml Syringe SC 04/13/25 08:59 40 mg QDAY WALDEMAR Administration Gabapentin 300 mg 03/30/25 22:00 04/02/25 13:41 Gabapentin 300 Mg Capsule PO 04/29/25 21:59 300 mg TID WALDEMAR Administration Guaifenesin 100 mg 03/30/25 17:18 04/02/25 05:42 Guaifenesin Syrup 200 Mg/10 Ml Udc PO 04/29/25 17:17 100 mg QID PRN Administration COUGH Protocol Ceftriaxone Sodium/Dextrose 1 gm in 50 mls @ 100 mls/hr 03/31/25 09:00 04/02/25 10:02 Rocephin/D5w 1gm Iv Premix IV 04/07/25 08:59 100 mls/hr QDAY WALDEMAR Administration Methylprednisolone Sodium Succinate 80 mg 04/02/25 14:00 04/02/25 13:41 Methylprednisolone Sod Succ 40 Mg Vial IVP 04/09/25 13:59 80 mg TID WALDEMAR Administration Ondansetron HCl 4 mg 03/30/25 08:57 03/30/25 10:11 Ondansetron Inj 2 Mg/Ml Inj 2 Ml IVP 04/29/25 08:56 4 mg Q6H PRN Administration NAUSEA OR VOMITING Protocol Pantoprazole Sodium 40 mg 03/30/25 16:00 04/02/25 10:03 Pantoprazole 40 Mg Tablet PO 04/29/25 15:59 40 mg QDAY WALDEMAR Administration Sennosides 1 tab 03/30/25 08:57 Senna Tablet PO 04/29/25 08:56 QDAY PRN constipation Protocol Sodium Chloride 3 ml 03/30/25 06:30 Sodium Chloride Rt Marisa 0.9% 3 Ml Nebu INH 04/29/25 06:29 PRN PRN SOLN Plan Bebe Carrasco is 75 yr female with PMH of HTN, HLD, depression, neuropathy presenting with chief complaint of shortness of breath worsening in the past 2 days. She had difficulty obtaining oxygen tank and once delivered was only using for short time due to issues with tubing. Patient admitted for AHRF 2/2 pulmonary fibrosis exacerbation. #AHRF 2/2 pulmonary fibrosis exacerbation #CAP SOB worsening with home pulse ox readings 75-80%. Stated that a few weeks ago patient went to [facility] for evaluation by payloader machine operator who diagnosed her with pulmonary fibrosis. There was a delay in delivery for home oxygen. Finally received the tank after seeing PCP in [place]. Was delivered past Sunday however used for only a short time due to tubing issues. She acutely deteriorated and presented to ED requiring BiPAP. She denies any history of smoking or exposure to smoke. CT chest from 04/02 showed worsening fibrosis with severe overlaying pneumonia. Had goals of care discussion with patient and due to poor long-term prognosis. Stated that they will talk with family. ?DuoNeb q4hr -- IV Ceftriaxone 1 g daily (03/30- ? IV Doxycycline 100 mg BID (03/30- ?IV methylprednisone 80 mg TID (03/30- ?Pantoprazole 40 mg p.o. daily -continue to wean oxygen -close follow up with pulmonology out patient - Monitor fluid status and plan for diuresis if overloaded -cocci serology pending #Pulmonary arterial hypertension #Cor pulmonale 2/[address] Caceres consulted who did bedside echo. Estimated EF to be around 60%. There is evidence of enlarged pulmonary arteries seen on CT. Echo also showed dilated right side of the heart. Complete echo results showed EF 70%, hypercontractility of LV, RV dilation, moderate PAH 50-55 mmHg, cor pulmonale secondary to lung disease. -continue management as above -Appreciate cardiology recs -follow up with cardiology outpatient. #Hx hypertension #Hx hyperlipidemia #Hx depression #Hx neuropathy Resumed home meds: ?Escitalopram 20 mg daily ? Gabapentin 300 mg TID ?Atorvastatin 10 mg daily ? Holding BP medication as blood pressure is soft #NSTEMI, type II-resolved #Elevated lactic acid-resolved Health maintenance: Dispo: tele for [facility] FEN: regular DVT prophylaxis: Lovenox CODE STATUS: Full code The patient's management plan was discussed with my attending physician Dr. Simon. Ruchi Nino, PGY-1 Attending Provider Attestation/Addendum 75-year-old female with multiple comorbidities including hypertension, hyperlipidemia and recent diagnosis of pulmonary fibrosis who presented with shortness of breath found to have acute hypoxic respiratory failure secondary to pulmonary fibrosis exacerbation. Of note, patient was prescribed during her last visit to her payloader machine operator however was in the process of obtaining it. Currently, plan to admit the patient and start patient on Rocephin, doxycycline, breathing treatment and methylprednisone. Overnight, patient oxygen requirement about 10 L OxyMask on Solu-Medrol 80 mg [address] chest yesterday with diffuse opacities throughout all lung bases indicating severe pulmonary fibrosis. Discussed these findings with patient and at bedside. Continues to require close monitoring as there is a risk for decompensation. I reviewed above note and agree with findings and plans. I have also personally examined the patient with medicine team and went over assessment and plan with medical team including dietetic intern and resident physician.
--- NOTE | 2025-04-02 17:12 | PC.SS ---
Rounding Note: Plan is to downtrend patient's oxygen requirements, 15L. Steroids to be increased.
--- NOTE | 2025-04-02 23:36 | ESPR_ITS ---
RE: CLAUS ALVAREZ : 1950 DATE OF SERVICE: 04/02/2025 SUBJECTIVE: The patient is a 75-year-old female with a history of interstitial lung disease, admitted to the hospital with bilateral pneumonia, interstitial pneumonia, requiring high-flow oxygen, also requiring treatment with steroid therapy and IV antibiotics. she continues to improve slightly, but is still quite hypoxemic, requiring high flow oxygen. No evidence of congestive heart failure. she remains on antibiotics, high flow oxygen __ OxyMask, saturating well. CT showed fibrosis and some underlying pneumonia. Physical exam is consistent with bronchial breathing also pneumonia. The patient is on a combination of methylprednisolone and IV steroids both, which is appropriate. Clinically, she is still having shortness of breath. OBJECTIVE: Vital Signs: Blood pressure is 138/75, pulse rate is 105, respirations 30, temperature normal. Pulse oximetry 92% on OxyMask. Head: Atraumatic. Neck: Supple. No significant JVD. Chest: Symmetrical. Lungs: Decreased breath sounds. Bronchial breathing is present, especially on the left side. Heart: S1, S2 distant. Abdomen: Thin and soft. Extremities: No edema. /Rectal: Not performed. WAITER/WAITRESS FIRST CLASS: Unremarkable. IMPRESSION: 1. Acute hypoxic respiratory failure secondary to interstitial pneumonia and fibrosis. 2. Congestive heart failure, initial presentation, but appears to be clinically stable. 3. Interstitial fibrosis and underlying lung disease. RECOMMENDATIONS: Continue antibody therapy, corticosteroids nd the rest of the medications. Cardiac campo stable, so far no evidence of clinical heart failure. [place] [id number] which is a good sign. Infection must be slowly improving. Kidney function still remains normal. BUN is slightly elevated. Progress is poor. Condition remains stable, but the patient did have troponin elevation 0.8, 0.8 type 2 troponin due to demand ischemia from hypoxemia. DT: 22:51:18 TT: 23:24:00 Ref: [id number] - TID: [id number] MTDD
[2025-04-03] VITALS (15 sets, daily range): BP systolic 127–175; BP diastolic 65–110; PULSE 66–105; RESP 20–42; TEMP 36.1–36.9; O2SAT 89–99; BMI 22.8
[2025-04-03] MEDS: ALBUTEROL/IPRATROPIUM (Duoneb) RT SOL 3 ML NEBU INH ×5 (02:55→22:30)
[2025-04-03 05:30] LABS: Basophils % (Auto) 0 % (0-2.5); Eosinophils % (Auto) 0 % (0-10); Hematocrit 41.4 % (36.0-46.0); Hemoglobin 13.5 g/dL (12.0-16.0); Immature Granulocytes % (Auto) 0 % (0-0); Immature Granulocytes Auto 0.04 Thou/mm3 (0.00-0.00); Lymphocytes # (Auto) 0.4 Thou/mm3 (1.0-4.8); Lymphocytes % (Auto) 4 % (10-50); Mean Corpuscular HGB Conc 32.6 g/dl (31.0-37.0); Mean Corpuscular Hemoglobin 31.2 pg (25.0-35.0); Mean Corpuscular Volume 96 fL (80-100); Monocytes # (Auto) 0.3 Thou/mm3 (0.0-0.8); Monocytes % (Auto) 3 % (0-12); Neutrophils # (Auto) 8.8 Thou/mm3 (1.8-7.7); Neutrophils % (Auto) 92 % (37-80); Nucleated Red Blood Cell % 0 /100 WBC (0); Platelet Count 289 Thou/mm3 (140-440); RDW Standard Deviation 50.9 fL (36.4-46.3); Red Blood Count 4.33 Miln/mm3 (4.00-5.20); White Blood Count 9.5 Thou/mm3 (3.6-11.0)
[2025-04-03] MEDS: GABAPENTIN 300 MG CAPSULE PO ×3 (05:31→21:50)
[2025-04-03 06:22] LABS: Alanine Aminotransferase 27 U/L (10-49); Albumin, Serum 3.8 gm/dL (3.4-4.8); Albumin/Globulin Ratio 1.9 (1.2-2.2); Alkaline Phosphatase 134 U/L (46-116); Anion Gap 7 (7-16); Aspartate Amino Transferase 25 U/L (0-34); BUN/Creatinine Ratio 44 Ratio (12-20); Bilirubin,Total 0.4 mg/dL (0.3-1.2); Blood Urea Nitrogen 35 mg/dL (9-23); Calcium 8.8 mg/dL (8.3-10.6); Carbon Dioxide 26.6 mMol/L (20.0-31.0); Chloride 103 mMol/L (98-107); Creatinine (Component) 0.8 mg/dL (0.6-1.3); Estimated Creatinine Clearance 46.6 mL/min (>60); Glucose 163 mg/dL (74-106); Osmolality,Calculated 285 (275-295); Potassium 5.2 mMol/L (3.4-5.1); Sodium 137 mMol/L (136-145); Total Protein 5.8 gm/dL (5.7-8.2); eGFR > 60 See Note
[2025-04-03] MEDS: guaiFENesin SYRUP 200 MG/10 ML UDC 100 MG PO (06:24)
--- NOTE | 2025-04-03 08:08 | CHAP ---
Responded to Rapid Response (08:08). All was good. Family member was there. Someone from their latter day was coming soon.
[2025-04-03 08:41] LABS: Base Excess 5 (-3-3); HCO3 29 mEq/L (20-26); Inspired Oxygen, FIO2 75 %; O2 Saturation 98 % (91-98); PCO2 42 mmHg (32.0-48.0); PO2 91 mmHg (83-108); pH, Arterial 7.45 (7.35-7.45)
--- NOTE | 2025-04-03 08:43 | ESCONSULT_ITS ---
HPI Data of Consult Patient: new to practice Consult date: 04/03/25 Requesting Physician: Alvina Simon MD Admitting Provider: Alvina Simon MD Attending Provider: Alvina Simon MD Primary Care Provider: Catracho Vicente MD Consult Narrative Reason for consult: Worsening hypoxia History of present illness: ESTABLISHED DIAGNOSES: 1. Pulmonary Fibrosis 2. Pulmonary Hypertension 3. Community acquired Pneumonia 4. History of Valley Fever in her 20's 5. History of Pneumonia in her 60's 6. Primary Hypertension 7. Hyperlipidemia 8. Depression 9. Anxiety 10. Osteoporosis 11. Osteoporotic compression fracture T10 12. Atrial fibrillation 13. Hiatal hernia HISTORY OF PRESENT ILLNESS : Patient is a 75-year-old female with past medical history significant for osteoporosis, osteoporotic T12 fracture, spinal radiculopathy, primary hypertension, hyperlipidemia, depression, anxiety, chronic sinusitis and history of valley fever in her 20s and pneumonia in his 60s. Presented with a chief complaint of worsening fatigue and cough. According to the patient approximately 5 days ago she experienced fatigue which gradually worsened along with a nonproductive cough. This prompted her to make an appointment with the feller operator who formally diagnosed her with pulmonary fibrosis and ordered her home oxygen, however before she received her oxygen she started to experience progressively worsening shortness of breath 2 days prior to hospital admission and presented to the emergency department. Denied an exposure to birds, coal mines, smoking or secondhand smoke, history of autoimmune disease, baking. Patient was admitted to the floor for acute respiratory failure with hypoxia secondary to pulmonary fibrosis. ICU was consulted for worsening hypoxia. HOME MEDICATIONS: 1. Atorvastatin 10 Mg p.o. daily 2. Citalopram 20 Mg p.o. daily 3. Fluticasone inhaler 1 puff daily 4. Gabapentin 300 Mg p.o. 3 times daily 5. Hydrocodone 1 tab p.o. every 6 hours as needed 6. Losartan 50 Mg p.o. twice daily 7. Omeprazole 20 Mg p.o. daily LABS: K5.2, BUN 35, glucose 163, ALP 134. Cocci negative. pH 7.45, pCO2 42, pO2 91, HCO3 29 IMAGING : * Chest CT showed worsening pulmonary fibrosis, groundglass opacities with superimposed consolidation, bronchiectasis, honeycombing and large hiatal hernia on the left. CT scans dating back to 2018 show changes consistent with pulomary fibrosis. * Transthoracic echocardiogram showed hyperdynamic systolic function, LVEF 70%. Right ventricle dilated with mild dysfunction. Pulmonary hypertension, PA 55 mmHg with small pericardial effusion. IMPRESSION: 1. Acute Respiratory Failure with Hypoxia secondary to Pulmonary Fibrosis 2. Superimposed Pnuemonia RECOMMENDATION: Hospice care cc:: cc: Alvina Simon MD Review of Systems Review of Systems Narrative Review of Systems: GENERAL: Denies fever/chills or diaphoresis. HEENT: Denies headaches or visual changes. Denies discharge. Neuro: Denies unusual weakness or difficulty speaking. CARDIO: Denies chest pain or palpitations. PULM: As above. GI: Denies abdominal pain, N/V/C/D. Reports having BMs. URO: Denies burning/itching/pain/urinary changes. MSK/EXT/SKIN: lower back pain, left foot pain PSYCH: Cooperative, pleasant mood & affect. The rest of the review of systems is otherwise negative. Past Medical History Past Medical History Comments [facility] COMMENT: Surgical History: Tonsillectomy?2010 Cholecystectomy - 2013 Social history: Occupational History: Works in the [employer] as a teenager. 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 Retired 6 years ago. Education Level: Attended college, did not graduate Marital Status: . No kids Tobacco use: Denies ETHO use: denies Illicit drug use: Denies Social History Note: lives with . At baseline ambulated and carried out of ADLs Family History: Dad? from a ruptured aortic aneurysm Mother, sister? heart problems Mom? at 45 from liver disease, history of hypothyroidism Exam Vital Signs Temp Pulse Resp BP Pulse Ox O2 Del Method O2 Flow Rate 98.4 F 80 27 H 127/80 93 L Oxy Mask 15 04/03/25 08:00 04/03/25 08:00 04/03/25 08:00 04/03/25 08:00 04/03/25 08:00 04/03/25 08:00 04/03/25 08:00 FiO2 30 04/02/25 16:00 Narrative Exam Constitutional Alert, oriented x 3 and comfortable. Elderly female on HFNC 40L, 65% FiO2. Thin HEENT Vision grossly intact. Patent nares. Trachea midline Respiratory Chest normal on inspection, decreased air entry in all lung sharma, poor inspiratory effort, fine crackles throughout all zones, posterior and anterior. Cardiovascular S1 and S2 audible, RRR. Systolic murmur heard at left sternal border. No murmurs carotid bruit. No gross JVD. Abdominal Soft and non tender to palpation in all quadrants. BS + Genitourinary No bladder tenderness, no flank pain. Normal to palpation Musculoskeletal Extremities tone within normal limits. No LE edema. Neurological CN II - XII grossly intact. Extremity motor and sensation grossly intact. Skin Warm, dry and intact. No apparent lesions. Grade II clubbing of fingers Psychiatric Patient has good affect, is cooperative Results Labs 04/03/25 04:25 04/03/25 12:20 Labs: Short CBC 04/03/25 Range/Units 04:25 WBC 9.5 (3.6-11.0) Thou/mm3 Hgb 13.5 (12.0-16.0) g/dL Hct 41.4 (36.0-46.0) % Plt Count 289 (140-440) Thou/mm3 BMP 04/03/25 04:25 Sodium 137 Potassium 5.2 H Chloride 103 Carbon Dioxide 26.6 BUN 35 H Creatinine 0.8 Glucose 163 H Calcium 8.8 Liver Function 04/03/25 Range/Units 04:25 Total Bilirubin 0.4 (0.3-1.2) mg/dL AST 25 (0-34) U/L ALT 27 (10-49) U/L Alkaline Phosphatase 134 H (46-116) U/L Albumin 3.8 (3.4-4.8) gm/dL ABG Interpretation ABG results: 03/30/25 08:27 ABG pH 7.34 L ABG pCO2 33 ABG pO2 97 ABG HCO3 18 L ABG O2 Saturation 97 ABG Base Excess -7 L Quality Measures Quality Measures none Advance care planning discussed with:: patient Medications Home Medications and Allergies Home Medications ?Medication ?Instructions ?Recorded ?Confirmed ?Type atorvastatin 10 mg tablet 10 mg PO QDAY 06/18/2303/30 History hydrocodone 7.5 mg-acetaminophen 1 tab PO Q6H PRN Back Pain 06/18/23 03/30/25 History 325 mg tablet losartan 50 mg tablet 50 mg PO BID 06/18/23 History omeprazole 20 mg capsule,delayed 20 mg PO QDAY 3 03/30/25 History release citalopram 20 mg tablet 20 mg PO QDAY 03/30/2503/30 History fluticasone fur. 200 mcg-umeclid 1 inh inhalation Q24H 03/30/25 03/30/25 History 62.5 mcg-vilant 25 mcg inhalat.powder (Trelegy Ellipta) gabapentin 300 mg capsule 300 mg PO TID 03/30/2503/30 History Allergies Allergy/AdvReac Type Severity Reaction Status Date / Time meperidine Allergy Mild Anxiety Verified 03/30/25 06:14 Visit Medications Acetaminophen (Acetaminophen 325 Mg Tablet) 650 mg PO Q6H PRN PRN Reason: Fever >101.5 Stop: 04/29/25 08:56 Hydrocodone Bitart/Acetaminophen (Hydrocodone/Apap 7.5/325 Tablet) 1 tab PO Q6H PRN PRN Reason: Back Pain 6-10 Stop: 04/04/25 15:54 Last Admin: 04/02/25 20:09 Dose: 1 tab Albuterol/Ipratropium (Albuterol/Ipratropium (Duoneb) Rt Marisa 3 Ml Nebu) 3 ml INH Q4HRRT [facility] Stop: 04/29/25 10:59 Last Admin: 04/03/25 06:46 Dose: 3 ml Atorvastatin Calcium (Atorvastatin Calcium 10 Mg Tablet) 10 mg PO QDAY [facility] Stop: 04/30/25 08:59 Last Admin: 04/02/25 10:03 Dose: 10 mg Citalopram Hydrobromide (Citalopram 20 Mg Tablet) 20 mg PO QDAY [facility] Stop: 04/30/25 08:59 Last Admin: 04/02/25 10:03 Dose: 20 mg Doxycycline Hyclate (Doxycycline 100 Mg Tablet) 100 mg PO BID [facility]; Protocol Stop: 04/08/25 09:44 Last Admin: 04/02/25 21:00 Dose: 100 mg Enoxaparin Sodium (Enoxaparin Sod Inj 40 Mg/0.4 Ml Syringe) 40 mg SC QDAY [facility] Stop: 04/13/25 08:59 Last Admin: 04/02/25 10:03 Dose: 40 mg Gabapentin (Gabapentin 300 Mg Capsule) 300 mg PO TID [facility] Stop: 04/29/25 21:59 Last Admin: 04/03/25 05:31 Dose: 300 mg Guaifenesin (Guaifenesin Syrup 200 Mg/10 Ml Udc) 100 mg PO QID PRN; Protocol PRN Reason: COUGH Stop: 04/29/25 17:17 Last Admin: 04/03/25 06:24 Dose: 100 mg Ceftriaxone Sodium/Dextrose (Rocephin/D5w 1gm Iv Premix) 1 gm in 50 mls @ 100 mls/hr IV QDAY [facility] Stop: 04/07/25 08:59 Last Admin: 04/02/25 10:02 Dose: 100 mls/hr Methylprednisolone Sodium Succinate (Methylprednisolone Sod Succ 40 Mg Vial) 80 mg IVP TID [facility] Stop: 04/09/25 13:59 Last Admin: 04/03/25 05:31 Dose: 80 mg Ondansetron HCl (Ondansetron Inj 2 Mg/Ml Inj 2 Ml) 4 mg IVP Q6H PRN; Protocol PRN Reason: NAUSEA OR VOMITING Stop: 04/29/25 08:56 Last Admin: 03/30/25 10:11 Dose: 4 mg Pantoprazole Sodium (Pantoprazole 40 Mg Tablet) 40 mg PO QDAY [facility] Stop: 04/29/25 15:59 Last Admin: 04/02/25 10:03 Dose: 40 mg Sennosides (Senna Tablet) 1 tab PO QDAY PRN; Protocol PRN Reason: constipation Stop: 04/29/25 08:56 Sodium Chloride (Sodium Chloride Rt Marisa 0.9% 3 Ml Nebu) 3 ml INH PRN PRN PRN Reason: SOLN Stop: 04/29/25 06:29 Discontinued Medications Hydrocodone Bitart/Acetaminophen (Hydrocodone/Apap 7.5/325 Tablet) 1 tab PO X1 ONE Stop: 04/02/25 10:37 Last Admin: 04/02/25 10:40 Dose: 1 tab Albuterol (Albuterol Rt 2.5 Mg/0.5 Ml Nebu) 10 mg INH X1 ONE Stop: 03/30/25 06:31 Last Admin: 03/30/25 07:00 Dose: 10 mg Ceftriaxone Sodium 1,000 mg/ (Lidocaine HCl 2.1 ml) 0 mg IM X1 ONE Stop: 03/30/25 07:41 Last Admin: 03/30/25 08:34 Dose: Not Given Doxycycline Hyclate (Doxycycline 100 Mg Tablet) 100 mg PO X1 ONE Stop: 03/30/25 07:41 Last Admin: 03/30/25 08:14 Dose: 100 mg Doxycycline Hyclate (Doxycycline 100 Mg Tablet) 100 mg PO BID [facility] Stop: 04/06/25 20:59 Furosemide (Furosemide Inj 10 Mg/Ml 4ml Vial) 40 mg IVP X1 ONE Stop: 03/30/25 07:56 Last Admin: 03/30/25 08:13 Dose: 40 mg Furosemide (Furosemide Inj 10 Mg/Ml 4ml Vial) 40 mg IVP QDAY [facility] Stop: 04/30/25 08:59 Sodium Chloride (Ns) 500 mls @ 999 mls/hr IV .Q31M ONE Stop: 03/30/25 07:03 Last Infusion: 03/30/25 08:35 Dose: Infused Ceftriaxone Sodium/Dextrose (Rocephin/D5w 1gm Iv Premix) 1 gm in 50 mls @ 100 mls/hr IV X1 ONE Stop: 03/30/25 09:03 Last Infusion: 03/30/25 10:32 Dose: Infused Sodium Chloride (Ns) 1,000 mls @ 70 mls/hr IV .[id number] [facility] Stop: 04/29/25 09:44 Last Admin: 03/30/25 10:33 Dose: Not Given Doxycycline Hyclate 100 mg/ (Sodium Chloride) 100 mls @ 100 mls/hr IV BID [facility] Stop: 04/06/25 20:59 Last Admin: 04/01/25 09:00 Dose: Not Given Sodium Chloride (Ns) 1,000 mls @ 100 mls/hr IV .Q10H ONE Stop: 03/31/25 17:51 Last Admin: 03/31/25 08:09 Dose: 100 mls/hr Methylprednisolone Sodium Succinate (Methylprednisolone Sod Succ 62.5 Mg/Ml 2ml Vial) 125 mg IVP X1 ONE Stop: 03/30/25 06:31 Last Admin: 03/30/25 07:19 Dose: 125 mg Methylprednisolone Sodium Succinate (Methylprednisolone Sod Succ 62.5 Mg/Ml 2ml Vial) 40 mg IVP Q8H [facility] Stop: 04/06/25 09:59 Methylprednisolone Sodium Succinate (Methylprednisolone Sod Succ 40 Mg Vial) 60 mg IVP TID [facility] Stop: 04/06/25 13:59 Last Admin: 04/02/25 05:38 Dose: 60 mg Assessment & Plan Plan Patient is a 75-year-old female with past medical history significant for osteoporosis, osteoporotic T12 fracture, spinal radiculopathy, primary hypertension, hyperlipidemia, depression, anxiety, chronic sinusitis and history of valley fever in her 20s and pneumonia in his 60s. Presented with a chief complaint of worsening fatigue and cough. Patient was admitted to the floor for acute respiratory failure with hypoxia secondary to pulmonary fibrosis. ICU was consulted for worsening hypoxia. NEURO Anxiety Depression Continue management as per primary team CVS Pulmonary Hypertension Etiology: Chronic untreated pulmonary fibrosis Rx : Supplemental O2 PULM Acute hypoxic respiratory failure secondary to pulmonary fibrosis Superimposed bacterial pneumonia Etiology: Idiopathic, autoimmune Dx: Chest CT showed worsening pulmonary fibrosis, groundglass opacities with superimposed consolidation, bronchiectasis, honeycombing and large hiatal hernia on the left. CT scans dating back to 2017 show changes consistent with pulomary fibrosis. Transthoracic echocardiogram showed hyperdynamic systolic function, LVEF 70%. Right ventricle dilated with mild dysfunction. Pulmonary hypertension, PA 55 mmHg with small pericardial effusion. Rx: If patient was younger not end-stage pulmonary fibrosis, she may have benefited from prostaglandin treatment. At this point only appropriate option is hospice care GI/Hep Type 3 Hiatal hernia Dx: Hiatal hernia seen on CT compressing the lung, most of the stomach is in the chest Rx: Due to her age and multiple co-morbidities patient not a candidate for surgical intervention Elevated ALP DDx: cholestasis Rx: Monitor CMP RENAL No acute problems HEME/ONC No acute problems ENDO No acute problems ID No active problems MSK/DERM No active problems Plan of care discussed with Attending Dr. Lay and PGY 3 Dr. Eleazar Allen MD PGY 1 Disclaimer: This note was dictated by speech recognition. Minor errors in road builder may be present due to voice recognition software. Attending Provider Attestation/Addendum pt seen and examined, d/w resident team. In brief this is a 75yo F who is admitted with SOB. Her CT is consistent with pulmonary fibrosis with possible superimposed pneumonia. 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 Pt states she was unaware of this and denies any home O2 use. On exam she has extensive crackles over both sharma. She is resting calmly in bed with NAD at this moment in time. The natural progression of her disease process was d/w her and her at bedside. At this time she understands and does not wish to be panting for air . She does not want aggresive interventions and she does not want to suffer. She would like to try treatment for now however if she declines she wishes to be transitioned to comfort care/hospice. case d/w ICU team and floor team labs, imaging, records reviewed ~55min required for eval, exam, review, intervention, discussion and formulation of plan for this unfortuanet pt with pulmonary fibrosis
[2025-04-03 08:47] LABS: Allen Test Performed/OK; Puncture Site Right Radial
--- NOTE | 2025-04-03 10:14 | PC.SS ---
Addendum entered by GHADA Templeton 04/03/25 16:08: SS follow up: met with patient's family to discuss hospice services. Patient's family incluidng spouse, Nakul appears to be agreeable to services. They are requesting to have a correspondence representative from [facility] contact them to get more clarifying information about services. Patient's niece, Mireya Bains contact information was provided to Jovana with [facility] to answer any questions on behalf of the family. Patient's family was also provided with additional hospice agency's brochures and resource handout for their review. Per medical team, the patient is not stable for discharge today, patient continues on highflow of 02 and will continue monitoring day by day to determine when and if patient is stable for discharge. Addendum entered by GHADA Templeton 04/03/25 14:32: Rounding note: patient continues on highflow of 02. Addendum entered by GHADA Templeton 04/03/25 13:20: SS follow up: spoke with family regarding preferred hospice agency and family informed they would give a call back when they have discussed. Contact number provided. Original Note: SS update: patient had a rapid this AM. Medical team informs, possible discussion for hospice services.
[2025-04-03] MEDS: ENOXAPARIN SOD INJ 40 MG/0.4 ML SYRINGE SC (10:35)
[2025-04-03] MEDS: DOXYCYCLINE 100 MG TABLET PO ×2 (10:35→20:04)
[2025-04-03] MEDS: cefTRIAXone/D5w 1gm IV premix 1 GM/50 ML BAG IV (10:35)
[2025-04-03] MEDS: HYDROcodone/APAP 7.5/325 TABLET 1 TAB PO (10:35)
[2025-04-03] MEDS: CITALOPRAM 20 MG TABLET PO (10:35)
[2025-04-03] MEDS: PANTOPRAZOLE 40 MG TABLET PO (10:35)
[2025-04-03] MEDS: ATORVASTATIN CALCIUM 10 MG TABLET PO (10:35)
--- NOTE | 2025-04-03 11:24 | ESPR_ITS ---
Documentation for date of: 04/03/25 Subjective Subjective Interval history: Patient was examined at bedside while rapid response event was called this morning 8:30 due to oxygen desaturation. Per nursing, patient was desaturating to the 70s while on 15 L O2. She was started on BiPAP and became more anxious with tachypnea worsening to 40?50 RR. With BiPAP, O2 was 83%. She was alert x 3, anxious. Other vitals were stable. She was transitioned to HFNC with setting of 40% FiO2 and titrated oxygen down to 65% with saturations 92?94. Severe tachypnea resolved. ICU team discussed possibility of intubation with the patient and at bedside. They have refused intubation and plan for long-term management was discussed. She has expressed interest in hospice and agreed to change CODE STATUS from full code to DNR understanding that she has a poor abstract clerk prognosis. At this time, team will continue steroids and treat underlying anxiety. Attempt to wean oxygen down to oxy mask and pursue home hospice. All concerns were adressed and questions were answered to full. Exam Vital Signs Temp Pulse Resp BP Pulse Ox O2 Del Method O2 Flow Rate 97.5 F 105 H 39 H 175/110 H 89 L Oxy Mask 15 04/03/25 08:38 04/03/25 08:38 04/03/25 08:38 04/03/25 08:38 04/03/25 08:38 04/03/25 08:00 04/03/25 08:00 FiO2 100 04/03/25 08:38 Narrative Exam General: Elderly female, on HFNC, somewhat anxious, cooperative HEENT: NCAT, No JVD noted. Mucosa dry. Pupils are equal and reactive to light bilaterally Cardiovascular: Normal S1 and S2. Regular rate and rhythm. Respiratory: b/L wheezing, tachypnic Abdomen: Soft, nontender, not distended, normal bowel sounds. Skin: Warm to touch, dry, no rashes noted Musculoskeletal: No gross injuries. Able to move all 4 extremities. No pitting edema Neuro: Alert and oriented x3. No focal neuro deficits. Psych: Normal affect and mood Objective Labs 04/05/25 05:24 04/05/25 05:24 Labs: Laboratory Results - last 24 hr 04/03/25 04/03/25 04:25 08:32 WBC 9.5 RBC 4.33 Hgb 13.5 Hct 41.4 MCV 96 MCH 31.2 MCHC 32.6 RDW Std Deviation 50.9 H Plt Count 289 Neut % (Auto) 92 H Lymph % (Auto) 4 L Schleicher % (Auto) 3 Eos % (Auto) 0 Baso % (Auto) 0 Neut # (Auto) 8.8 H Lymph # (Auto) 0.4 L Schleicher # (Auto) 0.3 Eos # (Auto) 0.0 Baso # (Auto) 0.0 Immature Gran # (Auto) 0.04 H Absolute Nucleated RBC 0.00 Immature Gran % 0 Nucleated RBC % 0 Puncture Site Right Radial ABG pH 7.45 ABG pCO2 42 ABG pO2 91 ABG HCO3 29 H ABG O2 Saturation 98 ABG Base Excess 5 H FiO2 75 Sodium 137 Potassium 5.2 H Chloride 103 Carbon Dioxide 26.6 Anion Gap 7 BUN 35 H Creatinine 0.8 Estim Creat Clear Calc 46.6 L eGFR > 60 BUN/Creatinine Ratio 44 H Glucose 163 H Calculated Osmolality 285 Calcium 8.8 Corrected Calcium 9.0 Total Bilirubin 0.4 AST 25 ALT 27 Alkaline Phosphatase 134 H Total Protein 5.8 Albumin 3.8 Globulin 2.0 L Albumin/Globulin Ratio 1.9 ABG Interpretation ABG results: 03/30/25 04/03/25 08:27 08:32 ABG pH 7.34 L 7.45 ABG pCO2 33 42 ABG pO2 97 91 ABG HCO3 18 L 29 H ABG O2 Saturation 97 98 ABG Base Excess -7 L 5 H Quality Measures Quality Measures none Advance care planning discussed with:: patient Assessment & Plan Assessment Current Active Medications: Generic Name Dose Route Start Last Admin Trade Name Cristina PRN Reason Stop Dose Admin Acetaminophen 650 mg 03/30/25 08:57 Acetaminophen 325 Mg Tablet PO 04/29/25 08:56 Q6H PRN Fever >101.5 Hydrocodone Bitart/Acetaminophen 1 tab 03/30/25 15:55 04/03/25 10:35 Hydrocodone/Apap 7.5/325 Tablet PO 04/04/25 15:54 1 tab Q6H PRN Administration Back Pain 6-10 Albuterol/Ipratropium 3 ml 03/30/25 11:00 04/03/25 06:46 Albuterol/Ipratropium (Duoneb) Rt Marisa 3 Ml Nebu INH 04/29/25 10:59 3 ml Q4HRRT WALDEMAR Administration Atorvastatin Calcium 10 mg 03/31/25 09:00 04/03/25 10:35 Atorvastatin Calcium 10 Mg Tablet PO 04/30/25 08:59 10 mg QDAY WALDEMAR Administration Citalopram Hydrobromide 20 mg 03/31/25 09:00 04/03/25 10:35 Citalopram 20 Mg Tablet PO 04/30/25 08:59 20 mg QDAY WALDEMAR Administration Doxycycline Hyclate 100 mg 04/01/25 09:45 04/03/25 10:35 Doxycycline 100 Mg Tablet PO 04/08/25 09:44 100 mg BID WALDEMAR Administration Protocol Enoxaparin Sodium 40 mg 03/30/25 09:00 04/03/25 10:35 Enoxaparin Sod Inj 40 Mg/0.4 Ml Syringe SC 04/13/25 08:59 40 mg QDAY WALDEMAR Administration Gabapentin 300 mg 03/30/25 22:00 04/03/25 05:31 Gabapentin 300 Mg Capsule PO 04/29/25 21:59 300 mg TID WALDEMAR Administration Guaifenesin 100 mg 03/30/25 17:18 04/03/25 06:24 Guaifenesin Syrup 200 Mg/10 Ml Udc PO 04/29/25 17:17 100 mg QID PRN Administration COUGH Protocol Ceftriaxone Sodium/Dextrose 1 gm in 50 mls @ 100 mls/hr 03/31/25 09:00 04/03/25 10:35 Rocephin/D5w 1gm Iv Premix IV 04/07/25 08:59 100 mls/hr QDAY WALDEMAR Administration Lorazepam 0.5 mg 04/03/25 10:14 Lorazepam 0.5 Mg Tablet PO X1 PRN anxiety Methylprednisolone Sodium Succinate 80 mg 04/02/25 14:00 04/03/25 05:31 Methylprednisolone Sod Succ 40 Mg Vial IVP 04/09/25 13:59 80 mg TID WALDEMAR Administration Ondansetron HCl 4 mg 03/30/25 08:57 03/30/25 10:11 Ondansetron Inj 2 Mg/Ml Inj 2 Ml IVP 04/29/25 08:56 4 mg Q6H PRN Administration NAUSEA OR VOMITING Protocol Pantoprazole Sodium 40 mg 03/30/25 16:00 04/03/25 10:35 Pantoprazole 40 Mg Tablet PO 04/29/25 15:59 40 mg QDAY WALDEMAR Administration Sennosides 1 tab 03/30/25 08:57 Senna Tablet PO 04/29/25 08:56 QDAY PRN constipation Protocol Sodium Chloride 3 ml 03/30/25 06:30 Sodium Chloride Rt Marisa 0.9% 3 Ml Nebu INH 04/29/25 06:29 PRN PRN SOLN Nathan Bebe Carrasco is 75 yr female with PMH of HTN, HLD, depression, neuropathy presenting with chief complaint of shortness of breath worsening in the past 2 days. She had difficulty obtaining oxygen tank and once delivered was only using for short time due to issues with tubing. Patient admitted for AHRF 2/2 pulmonary fibrosis exacerbation. #AHRF 2/2 pulmonary fibrosis exacerbation #CAP SOB worsening with home pulse ox readings 75-80%. Stated that a few weeks ago patient went to [place] for evaluation by storage management architect who diagnosed her with pulmonary fibrosis. There was a delay in delivery for home oxygen. Finally received the tank after seeing PCP in [place]. Was delivered past Sunday however used for only a short time due to tubing issues. She acutely deteriorated and presented to ED requiring BiPAP. She denies any history of smoking or exposure to smoke. CT chest from 04/02 showed worsening fibrosis with severe overlaying pneumonia. Had goals of care discussion with patient and due to poor long-term prognosis. Stated that they will talk with family. Cocci serology negative. ?DuoNeb q4hr -- IV Ceftriaxone 1 g daily (03/30- ? IV Doxycycline 100 mg BID (03/30- ?IV methylprednisone 80 mg TID (03/30- ?Pantoprazole 40 mg p.o. daily -continue to wean oxygen -close follow up with pulmonology out patient - Monitor fluid status and plan for diuresis if overloaded #Pulmonary arterial hypertension #Cor pulmonale 2/[address] Caceres consulted who did bedside echo. Estimated EF to be around 60%. There is evidence of enlarged pulmonary arteries seen on CT. Echo also showed dilated right side of the heart. Complete echo results showed EF 70%, hypercontractility of LV, RV dilation, moderate PAH 50-55 mmHg, cor pulmonale secondary to lung disease. -continue management as above -Appreciate cardiology recs -follow up with cardiology outpatient. #Hx hypertension #Hx hyperlipidemia #Hx depression #Hx neuropathy Resumed home meds: ?Escitalopram 20 mg daily ? Gabapentin 300 mg TID ?Atorvastatin 10 mg daily ? Holding BP medication as blood pressure is soft -Ativan 0.5mg x1 PRN for anxiety #NSTEMI, type II-resolved #Elevated lactic acid-resolved Health maintenance: Dispo: tele for [facility] FEN: regular DVT prophylaxis: Lovenox CODE STATUS: Full code The patient's management plan was discussed with my attending physician Dr. Simon. Ruchi Nino, PGY-1 Attending Provider Attestation/Addendum 75-year-old female with multiple comorbidities including hypertension, hyperlipidemia and recent diagnosis of pulmonary fibrosis who presented with shortness of breath found to have acute hypoxic respiratory failure secondary to pulmonary fibrosis exacerbation. Of note, patient was prescribed during her last visit to her storage management architect however was in the process of obtaining it. Currently, plan to admit the patient and start patient on Rocephin, doxycycline, breathing treatment and methylprednisone. Overnight, patient oxygen requirement about 10 L OxyMask on Solu-Medrol 80 mg [address] chest yesterday with diffuse opacities throughout all lung bases indicating severe pulmonary fibrosis. Discussed these findings with patient and at bedside. This morning, patient respiratory status worsened and initially placed on high flow nasal cannula however continued to be hypoxic. Consulted ICU for possible intubation however patient and did not want to be intubated and wanted to be DNR. In addition, wanted to proceed with the current management plan including high flow nasal cannula, breathing treatment, steroid, antibiotic however in an event where she worsen they want patient to be placed on comfort focused therapy. Will respect her decisions. I reviewed above note and agree with findings and plans. I have also personally examined the patient with medicine team and went over assessment and plan with medical team including manager of international and resident physician.
[2025-04-03 12:49] LABS: Potassium 5.5 mMol/L (3.4-5.1)
--- NOTE | 2025-04-03 15:50 | PD.RESEVENT ---
Documentation for date of: 04/03/25 Event Note Event Note: At 08:30, a rapid response was called due to the patient?s oxygen saturation dropping below 80%. Upon evaluation, the patient was anxious and tachypneic. Due to advanced pulmonary fibrosis, BiPAP was contraindicated; therefore, the patient was placed on a HFNC. The patient was alert and oriented ?3, with her present at the bedside. Vital signs were otherwise stable. Initial HFNC settings were FiO2 100%, with a plan to titrate FiO2 down as tolerated, aiming to maintain oxygen saturation between 92?94%. The patient received a small dose of Ativan for anxiety management. The ICU team was at the bedside and discussed the possibility of intubation with the patient?s . Separately, the hospitalist and ICU teams reviewed the patient?s advanced pulmonary fibrosis, the likelihood of clinical worsening despite intubation, and long-term management options. The patient remained alert and oriented ?3 and expressed her wish to avoid intubation. Consequently, her code status was changed from Full Code to DNR. Hospice care was also discussed, and the family agreed to pursue palliative care if her condition continue to deteriorate. If the patient?s condition worsens during hospitalization and the family and her maintain wishes against aggressive interventions, we will respect their decisions and focus on comfort care. The patient stated she wants to remain as comfortable as possible during clinical decline, and her wishes will be respected. For now, management will continue with IV steroids, treatment of underlying pneumonia, and oxygen support via HFNC to maintain saturations between 92?94%, try to wean to a regular oxygen mask as tolerated. Once more stable, hospice will be considered for discharge. Her remains at the bedside. Patient care was discussed with attending physician Dr. Aurora Monreal MD PGY-2 I have carefully reviewed this document. Due to imperfections in the voice software, there could be grammatical errors including phonetic/typographic errors. This in no way compromises the medical care the patient is receiving Attending Attestation: 75-year-old female with multiple comorbidities including hypertension, hyperlipidemia and recent diagnosis of pulmonary fibrosis who presented with shortness of breath found to have acute hypoxic respiratory failure secondary to pulmonary fibrosis exacerbation. Of note, patient was prescribed during her last visit to her medical education specialist however was in the process of obtaining it. Currently, plan to admit the patient and start patient on Rocephin, doxycycline, breathing treatment and methylprednisone. Overnight, patient oxygen requirement about 10 L OxyMask on Solu-Medrol 80 mg [address] chest yesterday with diffuse opacities throughout all lung bases indicating severe pulmonary fibrosis. Discussed these findings with patient and at bedside. This morning, patient respiratory status worsened and initially placed on high flow nasal cannula however continued to be hypoxic. Consulted ICU for possible intubation however patient and did not want to be intubated and wanted to be DNR. In addition, wanted to proceed with the current management plan including high flow nasal cannula, breathing treatment, steroid, antibiotic however in an event where she worsen they want patient to be placed on comfort focused therapy. Will respect her decisions. I reviewed above note and agree with findings and plans. I have also personally examined the patient with medicine team and went over assessment and plan with medical team including sourcing internship and resident physician.
[2025-04-03] MEDS: SENNA TABLET 1 TAB PO (20:04)
[2025-04-04] VITALS (16 sets, daily range): BP systolic 105–140; BP diastolic 76–86; PULSE 56–106; RESP 22–32; TEMP 35.9–36.5; O2SAT 90–97; BMI 22.8
--- NOTE | 2025-04-04 00:34 | ESPR_ITS ---
RE: CLAUS ALVAREZ : 1950 DATE OF SERVICE: 04/03/2025 SUBJECTIVE: The patient is doing fairly well except she is still having a lot of shortness of breath. Pulmonary condition has not improved significantly. The patient's oxygen saturation is dropping to 80% and on high flow oxygen due to advanced extensive pulmonary fibrosis, alveolar and interstitial infiltrates, bronchial breathing as well. The patient is not improved and worsened despite aggressive treatment with steroids and antibiotics with extensive pneumonia and ARDS pattern on the chest x-ray. Discussion apparently made with attending physician about code status. DNR status possibly reasonable. PHYSICAL EXAMINATION: . Vital Signs: Blood pressure 130/88, pulse 90, respirations 26, temperature normal, and saturation 90% on high flow oxygen 4 L. HEENT: Head is atraumatic and normocephalic. Neck: Supple. Chest: Symmetrical. Lungs: Bilateral crackles and bronchial breathing. Heart: S1 and S2 regular, tachycardia. Abdomen: Thin and soft. Extremities: Mild edema. IMPRESSION: 1. Hypoxic acute respiratory failure secondary to ARDS, interstitial fibrosis with pneumonia, severe oxygenation problems. 2. Right heart strain from cor pulmonale. RECOMMENDATIONS: Continue high-flow oxygen, antibiotics and steroids. Continue the DNR and comfort care possibly reasonable at this point. DT: ::28 TT: 23:58:00 Ref: [id number] - TID: [id number]
[2025-04-04] MEDS: ALBUTEROL/IPRATROPIUM (Duoneb) RT SOL 3 ML NEBU INH ×6 (03:20→23:20)
[2025-04-04] MEDS: GABAPENTIN 300 MG CAPSULE PO ×3 (05:00→21:01)
[2025-04-04 05:48] LABS: Basophils % (Auto) 0 % (0-2.5); Eosinophils % (Auto) 0 % (0-10); Hematocrit 38.5 % (36.0-46.0); Immature Granulocytes % (Auto) 1 % (0-0); Immature Granulocytes Auto 0.06 Thou/mm3 (0.00-0.00); Lymphocytes # (Auto) 0.5 Thou/mm3 (1.0-4.8); Lymphocytes % (Auto) 6 % (10-50); Mean Corpuscular HGB Conc 33.8 g/dl (31.0-37.0); Mean Corpuscular Volume 92 fL (80-100); Monocytes # (Auto) 0.3 Thou/mm3 (0.0-0.8); Monocytes % (Auto) 4 % (0-12); Neutrophils # (Auto) 7.2 Thou/mm3 (1.8-7.7); Neutrophils % (Auto) 89 % (37-80); Nucleated Red Blood Cell % 0 /100 WBC (0); Platelet Count 232 Thou/mm3 (140-440); RDW Standard Deviation 49.2 fL (36.4-46.3); Red Blood Count 4.19 Miln/mm3 (4.00-5.20); White Blood Count 8.1 Thou/mm3 (3.6-11.0)
[2025-04-04 06:31] LABS: Alanine Aminotransferase 25 U/L (10-49); Albumin, Serum 3.5 gm/dL (3.4-4.8); Albumin/Globulin Ratio 1.8 (1.2-2.2); Alkaline Phosphatase 124 U/L (46-116); Anion Gap 8 (7-16); BUN/Creatinine Ratio 46 Ratio (12-20); Bilirubin,Total 0.4 mg/dL (0.3-1.2); Blood Urea Nitrogen 37 mg/dL (9-23); Calcium 8.7 mg/dL (8.3-10.6); Calcium (Corrected) 9.1 mg/dL (8.5-10.1); Carbon Dioxide 27.4 mMol/L (20.0-31.0); Chloride 103 mMol/L (98-107); Creatinine (Component) 0.8 mg/dL (0.6-1.3); Estimated Creatinine Clearance 46.6 mL/min (>60); Glucose 161 mg/dL (74-106); Osmolality,Calculated 287 (275-295); Potassium 5.4 mMol/L (3.4-5.1); Sodium 138 mMol/L (136-145); Total Protein 5.5 gm/dL (5.7-8.2); eGFR > 60 See Note
--- NOTE | 2025-04-04 08:20 | ESPR_ITS ---
<Statement entered by Danny Sandoval MD - 04/04/25 14:22> I Danny Sandoval MD reviewed the note and agree with the resident's assessment & plan with exceptions as below. I have personally reviewed labs, imaging, home meds/prior records, examined the patient, formulated and discussed management plan with the IM team. Bebe has multiple comorbidities including interstitial pneumonitis leading to pulmonary fibrosis admitted for acute hypoxemic respiratory failure noted to have community-acquired pneumonia pulmonology is on board, continue HFNC and empiric antibiotics along with systemic steroids for an interstitial lung disease and pulmonary fibrosis. Patient is DNR/DNI and wanted to opt for palliative care if her condition deteriorates. Documentation for date of: 04/04/25 Subjective Subjective Interval history: Patient was examined bedside this morning, she is on high flow oxygen rate of 35% and 60% fio2 will continue to give her oxygen therapy with IV steroids. gave her adose of kaxylate to treat her mild hyperkalemia . If condition deteriorates we will change her to comfort care. Exam Vital Signs Temp Pulse Resp BP Pulse Ox O2 Del Method O2 Flow Rate 97.0 F 70 22 H 140/86 H 93 L High Flow Nasal Cannula 35 04/04/25 04:00 04/04/25 06:50 04/04/25 06:50 04/04/25 04:00 04/04/25 06:50 04/04/25 04:00 04/04/25 06:50 FiO2 65 04/04/25 06:50 Narrative Exam General: Elderly female, on HFNC, somewhat anxious, cooperative on high [place] HEENT: NCAT, No JVD noted. Mucosa dry. Pupils are equal and reactive to light bilaterally Cardiovascular: Normal S1 and S2. Regular rate and rhythm. Respiratory: b/L wheezing, tachypnic Abdomen: Soft, nontender, not distended, normal bowel sounds. Skin: Warm to touch, dry, no rashes noted Musculoskeletal: No gross injuries. Able to move all 4 extremities. No pitting edema Neuro: Alert and oriented x3. No focal neuro deficits. Psych: Normal affect and mood Objective Labs 04/04/25 05:12 04/04/25 05:12 Labs: Laboratory Results - last 24 hr 04/03/25 04/03/25 04/04/25 08:32 12:20 05:12 WBC 8.1 RBC 4.19 Hgb 13.0 Hct 38.5 MCV 92 MCH 31.0 MCHC 33.8 RDW Std Deviation 49.2 H Plt Count 232 D Neut % (Auto) 89 H Lymph % (Auto) 6 L Gosper % (Auto) 4 Eos % (Auto) 0 Baso % (Auto) 0 Neut # (Auto) 7.2 Lymph # (Auto) 0.5 L Gosper # (Auto) 0.3 Eos # (Auto) 0.0 Baso # (Auto) 0.0 Immature Gran # (Auto) 0.06 H Absolute Nucleated RBC 0.00 Immature Gran % 1 H Nucleated RBC % 0 Puncture Site Right Radial ABG pH 7.45 ABG pCO2 42 ABG pO2 91 ABG HCO3 29 H ABG O2 Saturation 98 ABG Base Excess 5 H FiO2 75 Sodium 138 Potassium 5.5 H 5.4 H Chloride 103 Carbon Dioxide 27.4 Anion Gap 8 BUN 37 H Creatinine 0.8 Estim Creat Clear Calc 46.6 L eGFR > 60 BUN/Creatinine Ratio 46 H Glucose 161 H Calculated Osmolality 287 Calcium 8.7 Corrected Calcium 9.1 Total Bilirubin 0.4 ALT 25 Alkaline Phosphatase 124 H Total Protein 5.5 L Albumin 3.5 Globulin 2.0 L Albumin/Globulin Ratio 1.8 ABG Interpretation ABG results: 03/30/25 04/03/25 08:27 08:32 ABG pH 7.34 L 7.45 ABG pCO2 33 42 ABG pO2 97 91 ABG HCO3 18 L 29 H ABG O2 Saturation 97 98 ABG Base Excess -7 L 5 H Quality Measures Quality Measures none Advance care planning discussed with:: patient Assessment & Plan Assessment Current Active Medications: Generic Name Dose Route Start Last Admin Trade Name Freq PRN Reason Stop Dose Admin Acetaminophen 650 mg 03/30/25 08:57 Acetaminophen 325 Mg Tablet PO 04/29/25 08:56 Q6H PRN Fever >101.5 Hydrocodone Bitart/Acetaminophen 1 tab 03/30/25 15:55 04/03/25 10:35 Hydrocodone/Apap 7.5/325 Tablet PO 04/04/25 15:54 1 tab Q6H PRN Administration Back Pain 6-10 Albuterol/Ipratropium 3 ml 03/30/25 11:00 04/04/25 06:49 Albuterol/Ipratropium (Duoneb) Rt Marisa 3 Ml Nebu INH 04/29/25 10:59 3 ml Q4HRRT WALDEMAR Administration Atorvastatin Calcium 10 mg 03/31/25 09:00 04/03/25 10:35 Atorvastatin Calcium 10 Mg Tablet PO 04/30/25 08:59 10 mg QDAY WALDEMAR Administration Citalopram Hydrobromide 20 mg 03/31/25 09:00 04/03/25 10:35 Citalopram 20 Mg Tablet PO 04/30/25 08:59 20 mg QDAY WALDEMAR Administration Doxycycline Hyclate 100 mg 04/01/25 09:45 04/03/25 20:04 Doxycycline 100 Mg Tablet PO 04/08/25 09:44 100 mg BID WALDEMAR Administration Protocol Enoxaparin Sodium 40 mg 03/30/25 09:00 04/03/25 10:35 Enoxaparin Sod Inj 40 Mg/0.4 Ml Syringe SC 04/13/25 08:59 40 mg QDAY WALDEMAR Administration Gabapentin 300 mg 03/30/25 22:00 04/04/25 05:00 Gabapentin 300 Mg Capsule PO 04/29/25 21:59 300 mg TID WALDEMAR Administration Guaifenesin 100 mg 03/30/25 17:18 04/03/25 06:24 Guaifenesin Syrup 200 Mg/10 Ml Udc PO 04/29/25 17:17 100 mg QID PRN Administration COUGH Protocol Ceftriaxone Sodium/Dextrose 1 gm in 50 mls @ 100 mls/hr 03/31/25 09:00 04/03/25 10:35 Rocephin/D5w 1gm Iv Premix IV 04/07/25 08:59 100 mls/hr QDAY WALDEMAR Administration Lorazepam 0.5 mg 04/03/25 10:14 Lorazepam 0.5 Mg Tablet PO X1 PRN anxiety Methylprednisolone Sodium Succinate 80 mg 04/02/25 14:00 04/04/25 05:00 Methylprednisolone Sod Succ 40 Mg Vial IVP 04/09/25 13:59 80 mg TID WALDEMAR Administration Ondansetron HCl 4 mg 03/30/25 08:57 03/30/25 10:11 Ondansetron Inj 2 Mg/Ml Inj 2 Ml IVP 04/29/25 08:56 4 mg Q6H PRN Administration NAUSEA OR VOMITING Protocol Pantoprazole Sodium 40 mg 03/30/25 16:00 04/03/25 10:35 Pantoprazole 40 Mg Tablet PO 04/29/25 15:59 40 mg QDAY WALDEMAR Administration Sennosides 1 tab 03/30/25 08:57 04/03/25 20:04 Senna Tablet PO 04/29/25 08:56 1 tab QDAY PRN Administration constipation Protocol Sodium Chloride 3 ml 03/30/25 06:30 Sodium Chloride Rt Marisa 0.9% 3 Ml Nebu INH 04/29/25 06:29 PRN PRN SOLN Plan Bebe Carrasco is 75 yr female with PMH of HTN, HLD, depression, neuropathy presenting with chief complaint of shortness of breath worsening in the past 2 days. She had difficulty obtaining oxygen tank and once delivered was only using for short time due to issues with tubing. Patient admitted for AHRF 2/2 pulmonary fibrosis exacerbation. #AHRF 2/2 pulmonary fibrosis exacerbation worsening on HF #CAP SOB worsening with home pulse ox readings 75-80%. Stated that a few weeks ago patient went to [place] for evaluation by statistics intern who diagnosed her with pulmonary fibrosis. There was a delay in delivery for home oxygen. Finally received the tank after seeing PCP in [place]. Was delivered past Sunday however used for only a short time due to tubing issues. She acutely deteriorated and presented to ED requiring BiPAP. She denies any history of smoking or exposure to smoke. CT chest from 04/02 showed worsening fibrosis with severe overlaying pneumonia. Had goals of care discussion with patient and due to poor long-term prognosis. Stated that they will talk with family. Cocci serology negative. ?DuoNeb q4hr -- IV Ceftriaxone 1 g daily (03/30- ? IV Doxycycline 100 mg BID (03/30- ?IV methylprednisone 80 mg TID (03/30- ?Pantoprazole 40 mg p.o. daily -continue to wean oxygen - Monitor fluid status and plan for diuresis if overloaded -04/04/2025: The patient remained alert and oriented ?3 and expressed her wish to avoid intubation. Consequently, her code status was changed from Full Code to DNR. Hospice care was also discussed, and the family agreed to pursue palliative care if her condition continue to deteriorate.If the patient?s condition worsens during hospitalization we will respect her decisions and focus on comfort care. She stated she wants to remain as comfortable as possible during clinical decline, and her wishes will be respected. For now, management will continue with IV steroids, treatment of underlying pneumonia, and oxygen support via HFNC to maintain saturations between 92?94%, try to wean to a regular oxygen mask as tolerated. Once more stable, hospice will be considered for discharge. #Pulmonary arterial hypertension #Cor pulmonale 2/[address] Caceres consulted who did bedside echo. Estimated EF to be around 60%. There is evidence of enlarged pulmonary arteries seen on CT. Echo also showed dilated right side of the heart. Complete echo results showed EF 70%, hypercontractility of LV, RV dilation, moderate PAH 50-55 mmHg, cor pulmonale secondary to lung disease. -continue management as above -Appreciate cardiology recs #Hx hypertension #Hx hyperlipidemia #Hx depression #Hx neuropathy Resumed home meds: ?Escitalopram 20 mg daily ? Gabapentin 300 mg TID ?Atorvastatin 10 mg daily ? Holding BP medication as blood pressure is soft -Ativan 0.5mg x1 PRN for anxiety #NSTEMI, type II-resolved #Elevated lactic acid-resolved Health maintenance: Dispo: tele for AHRF on HF FEN: regular DVT prophylaxis: Lovenox CODE STATUS: Full code The patient's management plan was discussed with my attending physician Dr. Jaime Key MD, PGY-3
[2025-04-04] MEDS: PANTOPRAZOLE 40 MG TABLET PO (08:40)
[2025-04-04] MEDS: DOXYCYCLINE 100 MG TABLET PO ×2 (08:40→21:01)
[2025-04-04] MEDS: ATORVASTATIN CALCIUM 10 MG TABLET PO (08:40)
[2025-04-04] MEDS: ENOXAPARIN SOD INJ 40 MG/0.4 ML SYRINGE SC (08:41)
[2025-04-04] MEDS: cefTRIAXone/D5w 1gm IV premix 1 GM/50 ML BAG IV (08:41)
[2025-04-04] MEDS: CITALOPRAM 20 MG TABLET PO (08:41)
[2025-04-04] MEDS: SOD POLYSTYRENE SULFON SUSP 15 GM/60 ML BTL PO (08:42)
[2025-04-04] MEDS: HYDROcodone/APAP 7.5/325 TABLET 1 TAB PO ×3 (08:45→21:01)
--- NOTE | 2025-04-04 15:45 | PC.SS ---
Nuclear Technologist (SUZAN) Paty received a phone call from [facility], Sara Neely, who reported that she did a consult with family and they were requesting services. SUZAN contacted GME Resident PGY-2 Dr. Monreal who reported that at this time, patient remains on high flow, continues with IV antibiotics and steroids. At this time, the plan is to continue to wean off high flow oxygen. SUZAN updated Sara Neely
[2025-04-04] MEDS: guaiFENesin SYRUP 200 MG/10 ML UDC 100 MG PO (21:03)
[2025-04-05] VITALS (11 sets, daily range): BP systolic 127–141; BP diastolic 76–86; PULSE 62–96; RESP 15–30; TEMP 35.9–36.7; O2SAT 90–99; BMI 23.1
--- NOTE | 2025-04-05 01:20 | ESPR_ITS ---
RE: CLAUS ALVAREZ : 1950 DATE OF SERVICE: 04/04/2025 SUBJECTIVE: The patient is a 75-year-old lady, admitted to the hospital with viral pneumonia, cor pulmonale, interstitial lung disease, and hypertension. She is doing a little better. Still on high-flow oxygen, but definitely better _ than yesterday. Still having shortness of breath, but takes now 65% to 70% oxygen supplementation, nasal cannula, high flow. OBJECTIVE: Neck: Supple. JVD was not present. Chest: Symmetrical. Lungs: Clear. No rales or rhonchi. Heart: S1, S2, regular. S4 gallop heard. Abdomen: Thin and soft. Extremities: Mild edema. /Rectal: Not performed. Neurologic: Exam was unremarkable. LABORATORY DATA: White count is 8.1. CBC is normal. Chemistry panel showed evidence of normal BUN and creatinine, potassium on the high side at 5.4. IMPRESSION: 1. Acute hypoxic respiratory failure. 2. Hypertension. RECOMMENDATIONS: 1. Continue medical management. 2. Continue cardial evaluation for cardiac arrhythmia. 3: There is some element of right heart failure and pulmonary hypertension _. DT: 23:56:15 TT: 01:19:00 Ref: [id number] - TID: [id number] [facility]
[2025-04-05] MEDS: ALBUTEROL/IPRATROPIUM (Duoneb) RT SOL 3 ML NEBU INH ×5 (03:05→22:37)
[2025-04-05] MEDS: GABAPENTIN 300 MG CAPSULE PO ×3 (05:25→21:15)
[2025-04-05] MEDS: guaiFENesin SYRUP 200 MG/10 ML UDC 100 MG PO ×2 (05:29→21:15)
[2025-04-05 06:23] LABS: Basophils % (Auto) 0 % (0-2.5); Eosinophils % (Auto) 0 % (0-10); Hematocrit 39.8 % (36.0-46.0); Hemoglobin 13.2 g/dL (12.0-16.0); Lymphocytes # (Auto) 0.4 Thou/mm3 (1.0-4.8); Lymphocytes % (Auto) 5 % (10-50); Mean Corpuscular HGB Conc 33.2 g/dl (31.0-37.0); Mean Corpuscular Hemoglobin 31.4 pg (25.0-35.0); Mean Corpuscular Volume 95 fL (80-100); Monocytes # (Auto) 0.4 Thou/mm3 (0.0-0.8); Monocytes % (Auto) 5 % (0-12); Neutrophils # (Auto) 7.9 Thou/mm3 (1.8-7.7); Neutrophils % (Auto) 90 % (37-80); Platelet Count 272 Thou/mm3 (140-440); RDW Standard Deviation 50.4 fL (36.4-46.3); Red Blood Count 4.21 Miln/mm3 (4.00-5.20); White Blood Count 8.8 Thou/mm3 (3.6-11.0)
[2025-04-05 06:24] LABS: Immature Granulocytes % (Auto) 1 % (0-0); Immature Granulocytes Auto 0.08 Thou/mm3 (0.00-0.00); Nucleated Red Blood Cell % 0 /100 WBC (0)
[2025-04-05 07:26] LABS: Alanine Aminotransferase 29 U/L (10-49); Albumin, Serum 3.2 gm/dL (3.4-4.8); Albumin/Globulin Ratio 1.7 (1.2-2.2); Alkaline Phosphatase 108 U/L (46-116); Anion Gap 7 (7-16); BUN/Creatinine Ratio 46 Ratio (12-20); Bilirubin,Total 0.4 mg/dL (0.3-1.2); Blood Urea Nitrogen 37 mg/dL (9-23); Calcium 7.9 mg/dL (8.3-10.6); Calcium (Corrected) 8.5 mg/dL (8.5-10.1); Carbon Dioxide 30.3 mMol/L (20.0-31.0); Chloride 105 mMol/L (98-107); Creatinine (Component) 0.8 mg/dL (0.6-1.3); Estimated Creatinine Clearance 46.6 mL/min (>60); Globulin 1.9 gm/dL (2.3-3.5); Glucose 163 mg/dL (74-106); Osmolality,Calculated 295 (275-295); Sodium 142 mMol/L (136-145); Total Protein 5.1 gm/dL (5.7-8.2); eGFR > 60 See Note
[2025-04-05] MEDS: HYDROcodone/APAP 7.5/325 TABLET 1 TAB PO ×3 (07:51→21:14)
[2025-04-05] MEDS: cefTRIAXone/D5w 1gm IV premix 1 GM/50 ML BAG IV (08:44)
[2025-04-05] MEDS: ENOXAPARIN SOD INJ 40 MG/0.4 ML SYRINGE SC (08:45)
[2025-04-05] MEDS: PANTOPRAZOLE 40 MG TABLET PO (08:46)
[2025-04-05] MEDS: CITALOPRAM 20 MG TABLET PO (08:46)
[2025-04-05] MEDS: DOXYCYCLINE 100 MG TABLET PO ×2 (08:46→20:03)
[2025-04-05] MEDS: ATORVASTATIN CALCIUM 10 MG TABLET PO (08:46)
--- NOTE | 2025-04-05 09:58 | PD.GYNCONS ---
[employer]ER HPI Data of Consult Patient: new to practice Consult date: 04/05/25 Requesting Physician: Alvina Simon MD Primary Care Provider: Catracho Vicente MD Consult Narrative Reason for consult: pelvic prolapse (Evaluation on whether her pessary needs to be removed.) History of present illness: The patient is a 75-year-old G0 who is admitted for an exacerbation of her idiopathic pulmonary fibrosis with acute desaturation and difficulty breathing. She states she had has had a pessary in place for over a year. She sees a doctor in [place] who placed a gel horn pessary. She was getting this washed and changed every 3 months. Her 88-year-old sister also sees the same doctor for a pessary. The patient states when she did not have the pessary it was difficult to empty her bladder due to bladder prolapse and then she would be incontinent from what sounds like overflow incontinence. The patient is not having any trouble with her pessary specifically no bleeding and no pain. She just wonders if it is time for it to be removed or changed. Of note the patient does cough often with her pulmonary disease. She is also on a pure wick catheter to help with any incontinence. Unfortunately the patient is not doing well with her pulmonary fibrosis. She has hospice and/or palliative care involved. Patient would like eventually to go home but she states she just wants to be able to breathe. She does not want to struggle to breathe at home. cc:: cc: Alvina Simon MD Meds Home Medications and Allergies Home Medications ?Medication ?Instructions ?Recorded ?Confirmed ?Type atorvastatin 10 mg tablet 10 mg PO QDAY 06/18/23 03/30/25 History hydrocodone 7.5 mg-acetaminophen 1 tab PO Q6H PRN Back Pain 06/18/23 03/30/25 History 325 mg tablet losartan 50 mg tablet 50 mg PO BID 06/18/23 03/30/25 History omeprazole 20 mg capsule,delayed 20 mg PO QDAY 06/18/23 03/30/25 History release citalopram 20 mg tablet 20 mg PO QDAY 03/30/25 03/30/25 History fluticasone fur. 200 mcg-umeclid 1 inh inhalation Q24H 03/30/25 03/30/25 History 62.5 mcg-vilant 25 mcg inhalat.powder (Trelegy Ellipta) gabapentin 300 mg capsule 300 mg PO TID 03/30/25 03/30/25 History Allergies Allergy/AdvReac Type Severity Reaction Status Date / Time meperidine Allergy Mild Anxiety Verified 03/30/25 06:14 Exam - [employer] Vital Signs Temp Pulse Resp BP Pulse Ox O2 Del Method O2 Flow Rate 97.2 F 74 26 H 134/84 H 94 L High Flow Nasal Cannula 40 04/05/25 08:00 04/05/25 08:00 04/05/25 08:00 04/05/25 08:00 04/05/25 08:00 04/05/25 08:00 04/05/25 08:00 FiO2 65 04/05/25 08:00 Narrative Exam Patient is a very pleasant elderly female in bed eating a soft tray for breakfast. She is on high flow oxygen. She is still short of breath talking to me with high flow oxygen in place. She is a good historian. She states her is suffering from early dementia. She states she has never delivered any babies.. She has a sister and some nieces in the area. Constitutional Constitutional: mild distress and moderate distress (Patient is still short of breath while speaking in short sentences on high flow oxygen) Routine Exam External: Present normal urethra appearance Comments: External genitalia appears normal. No signs of yeast wetness or erythema. No bleeding. No skin breakdown. No abnormal discharge ,no odor. A gentle vaginal exam with one finger reveals a gel horn pessary to be in good position. [employer]ER - Results Labs 04/05/25 05:24 04/05/25 05:24 Labs: Short CBC 04/05/25 Range/Units 05:24 WBC 8.8 (3.6-11.0) Thou/mm3 Hgb 13.2 (12.0-16.0) g/dL Hct 39.8 (36.0-46.0) % Plt Count 272 D (140-440) Thou/mm3 BMP 04/05/25 05:24 Sodium 142 Potassium 5.0 Chloride 105 Carbon Dioxide 30.3 BUN 37 H Creatinine 0.8 Glucose 163 H Calcium 7.9 L Liver Function 04/05/25 Range/Units 05:24 Total Bilirubin 0.4 (0.3-1.2) mg/dL ALT 29 (10-49) U/L Alkaline Phosphatase 108 (46-116) U/L Albumin 3.2 L (3.4-4.8) gm/dL ABG Interpretation ABG results: 03/30/25 04/03/25 08:27 08:32 ABG pH 7.34 L 7.45 ABG pCO2 33 42 ABG pO2 97 91 ABG HCO3 18 L 29 H ABG O2 Saturation 97 98 ABG Base Excess -7 L 5 H Assessment and Plan Assessment and plan (1) Pulmonary fibrosis: Status: Acute (2) Respiratory failure: Status: Acute (3) Vaginal pessary in situ: Status: Acute Assessment and plan: At this point I recommended the patient keep her pessary in place. If she is having pain or bleeding, this might need to be taken out and refitted. The patient is pretty short of breath in the hospital. If needed, we could prescribe estrogen cream in order to keep her vaginal area well estrogenized so the pessary does not get stuck. The patient was told how to place this vaginally. She states that she is a little hard for her so I recommended her could help. One of her nieces could also place the estrogen cream. I feel if we remove the pessary, the patient might have worsening bladder prolapse and this could lead to problems such as swelling, a yeast infection or skin breakdown from constant dribbling of urine. The patient agrees with this plan. She can follow-up with her doctor in [place] if needed. (2) Respiratory failure Qualifiers: Chronicity: acute on chronic
--- NOTE | 2025-04-05 10:37 | PC.SS ---
SS follow up note; Patient is currently on high flow 02, as well as getting IV ABX. Patient will discharge home when medically cleared.
--- NOTE | 2025-04-05 14:39 | ESPR_ITS ---
<Statement entered by Alvina Simon MD - 04/17/25 14:04> I reviewed above note and agree with findings and plans. I have also personally examined the patient with medicine team and went over assessment and plan with medical team including compliance intern and resident physician. Documentation for date of: 04/05/25 Subjective Subjective Interval history: Patient examined at bedside. No events overnight, patient has no major complaints. She is saturating 94% O2 on 40 L high flow nasal cannula at 65% FiO2. Still tachypneic with a rate in the 30s. However she is feeling comfortable. Continue antibiotics and steroids in setting of her pneumonia and pulmonary fibrosis. Goal oxygenation 92-94%. Will monitor her status over next few days. If unable to improve requirements or noticeable deterioration, will have comfort care measures discussion. Family is aware of prognosis. Exam Vital Signs Temp Pulse Resp BP Pulse Ox O2 Del Method O2 Flow Rate 98.1 F 72 20 135/76 H 95 High Flow Nasal Cannula 40 04/05/25 12:00 04/05/25 12:04/05/25 12:00 04/05/25 12:04/05/25 12:04/05/25 12:04/05/25 12:00 FiO2 65 04/05/25 12:00 Narrative Exam General: Elderly female, on HFNC, somewhat anxious, cooperative on high flow HEENT: NCAT, No JVD noted. Mucosa dry. Pupils are equal and reactive to light bilaterally Cardiovascular: Normal S1 and S2. Regular rate and rhythm. Respiratory: b/L wheezing, tachypnic Abdomen: Soft, nontender, not distended, normal bowel sounds. Skin: Warm to touch, dry, no rashes noted Musculoskeletal: No gross injuries. Able to move all 4 extremities. No pitting edema Neuro: Alert and oriented x3. No focal neuro deficits. Psych: Normal affect and mood Objective Labs 04/05/25 05:24 04/05/25 05:24 Labs: Laboratory Results - last 24 hr 04/05/25 05:24 WBC 8.8 RBC 4.21 Hgb 13.2 Hct 39.8 MCV 95 MCH 31.4 MCHC 33.2 RDW Std Deviation 50.4 H Plt Count 272 D Neut % (Auto) 90 H Lymph % (Auto) 5 L [place] % (Auto) 5 Eos % (Auto) 0 Baso % (Auto) 0 Neut # (Auto) 7.9 H Lymph # (Auto) 0.4 L [place] # (Auto) 0.4 Eos # (Auto) 0.0 Baso # (Auto) 0.0 Immature Gran # (Auto) 0.08 H Absolute Nucleated RBC 0.00 Immature Gran % 1 H Nucleated RBC % 0 Sodium 142 Potassium 5.0 Chloride 105 Carbon Dioxide 30.3 Anion Gap 7 BUN 37 H Creatinine 0.8 Estim Creat Clear Calc 46.6 L eGFR > 60 BUN/Creatinine Ratio 46 H Glucose 163 H Calculated Osmolality 295 Calcium 7.9 L Corrected Calcium 8.5 Total Bilirubin 0.4 ALT 29 Alkaline Phosphatase 108 Total Protein 5.1 L Albumin 3.2 L Globulin 1.9 L Albumin/Globulin Ratio 1.7 ABG Interpretation ABG results: 03/30/25 04/03/25 08:27 08:32 ABG pH 7.34 L 7.45 ABG pCO2 33 42 ABG pO2 97 91 ABG HCO3 18 L 29 H ABG O2 Saturation 97 98 ABG Base Excess -7 L 5 H Quality Measures Quality Measures none Advance care planning discussed with:: patient Assessment & Plan Assessment Current Active Medications: Generic Name Dose Route Start Last Admin Trade Name Freq PRN Reason Stop Dose Admin Acetaminophen 650 mg 03/30/25 08:57 Acetaminophen 325 Mg Tablet PO 04/29/25 08:56 Q6H PRN Fever >101.5 Hydrocodone Bitart/Acetaminophen 1 tab 04/04/25 16:32 04/05/25 07:51 Hydrocodone/Apap 7.5/325 Tablet PO 04/09/25 16:31 1 tab Q6HR PRN Administration PAIN Albuterol/Ipratropium 3 ml 03/30/25 11:00 04/05/25 10:24 Albuterol/Ipratropium (Duoneb) Rt Marisa 3 Ml Nebu INH 04/29/25 10:59 3 ml Q4HRRT WALDEMAR Administration Atorvastatin Calcium 10 mg 03/31/25 09:00 04/05/25 08:46 Atorvastatin Calcium 10 Mg Tablet PO 04/30/25 08:59 10 mg QDAY WALDEMAR Administration Citalopram Hydrobromide 20 mg 03/31/25 09:00 04/05/25 08:46 Citalopram 20 Mg Tablet PO 04/30/25 08:59 20 mg QDAY WALDEMAR Administration Doxycycline Hyclate 100 mg 04/01/25 09:45 04/05/25 08:46 Doxycycline 100 Mg Tablet PO 04/08/25 09:44 100 mg BID WALDEMAR Administration Protocol Enoxaparin Sodium 40 mg 03/30/25 09:00 04/05/25 08:45 Enoxaparin Sod Inj 40 Mg/0.4 Ml Syringe SC 04/13/25 08:59 40 mg QDAY WALDEMAR Administration Gabapentin 300 mg 03/30/25 22:00 04/05/25 05:25 Gabapentin 300 Mg Capsule PO 04/29/25 21:59 300 mg TID WALDEMAR Administration Guaifenesin 100 mg 03/30/25 17:18 04/05/25 05:29 Guaifenesin Syrup 200 Mg/10 Ml Udc PO 04/29/25 17:17 100 mg QID PRN Administration COUGH Protocol Ceftriaxone Sodium/Dextrose 1 gm in 50 mls @ 100 mls/hr 03/31/25 09:00 04/05/25 08:44 Rocephin/D5w 1gm Iv Premix IV 04/07/25 08:59 100 mls/hr QDAY WALDEMAR Administration Lorazepam 0.5 mg 04/03/25 10:14 Lorazepam 0.5 Mg Tablet PO X1 PRN anxiety Methylprednisolone Sodium Succinate 80 mg 04/02/25 14:00 04/05/25 05:26 Methylprednisolone Sod Succ 40 Mg Vial IVP 04/09/25 13:59 80 mg TID WALDEMAR Administration Ondansetron HCl 4 mg 03/30/25 08:57 03/30/25 10:11 Ondansetron Inj 2 Mg/Ml Inj 2 Ml IVP 04/29/25 08:56 4 mg Q6H PRN Administration NAUSEA OR VOMITING Protocol Pantoprazole Sodium 40 mg 03/30/25 16:00 04/05/25 08:46 Pantoprazole 40 Mg Tablet PO 04/29/25 15:59 40 mg QDAY WALDEMAR Administration Sennosides 1 tab 03/30/25 08:57 04/03/25 20:04 Senna Tablet PO 04/29/25 08:56 1 tab QDAY PRN Administration constipation Protocol Sodium Chloride 3 ml 03/30/25 06:30 Sodium Chloride Rt Marisa 0.9% 3 Ml Nebu INH 04/29/25 06:29 PRN PRN SOLN Nathan Carrasco is 75 yr female with PMH of HTN, HLD, depression, neuropathy presenting with chief complaint of shortness of breath worsening in the past 2 days. She had difficulty obtaining oxygen tank and once delivered was only using for short time due to issues with tubing. Patient admitted for AHRF 2/2 pulmonary fibrosis exacerbation. #AHRF 2/2 pulmonary fibrosis exacerbation #CAP SOB worsening with home pulse ox readings 75-80%. Stated that a few weeks ago patient went to [place] [facility] for evaluation by helper steel fabrication who diagnosed her with pulmonary fibrosis. There was a delay in delivery for home oxygen. Finally received the tank after seeing PCP in [place]. Was delivered past Sunday however used for only a short time due to tubing issues. She acutely deteriorated and presented to ED requiring BiPAP. She denies any history of smoking or exposure to smoke. CT chest from 04/02 showed worsening fibrosis with severe overlaying pneumonia. Had goals of care discussion with patient and due to poor long-term prognosis. Stated that they will talk with family. Cocci serology negative. ?DuoNeb q4hr -- IV Ceftriaxone 1 g daily (03/30- ? IV Doxycycline 100 mg BID (03/30- ?IV methylprednisone 80 mg TID (03/30- ?Pantoprazole 40 mg p.o. daily -continue to wean oxygen - Monitor fluid status and plan for diuresis if overloaded #Pulmonary arterial hypertension #Cor pulmonale 2/[address] Caceres consulted who did bedside echo. Estimated EF to be around 60%. There is evidence of enlarged pulmonary arteries seen on CT. Echo also showed dilated right side of the heart. Complete echo results showed EF 70%, hypercontractility of LV, RV dilation, moderate PAH 50-55 mmHg, cor pulmonale secondary to lung disease. -continue management as above -Appreciate cardiology recs #Hx hypertension #Hx hyperlipidemia #Hx depression #Hx neuropathy Resumed home meds: ?Escitalopram 20 mg daily ? Gabapentin 300 mg TID ?Atorvastatin 10 mg daily ? Holding BP medication as blood pressure is soft -Ativan 0.5mg x1 PRN for anxiety #NSTEMI, type II-resolved #Elevated lactic acid-resolved Health maintenance: Dispo: tele for AHRF on HF FEN: regular DVT prophylaxis: Lovenox CODE STATUS: Full code The patient's management plan was discussed with my attending physician Dr. Simon. Ruchi Nino, PGY1
[2025-04-06] VITALS (13 sets, daily range): BP systolic 126–152; BP diastolic 74–79; PULSE 54–103; RESP 16–29; TEMP 36.1–36.4; O2SAT 91–99
--- NOTE | 2025-04-06 00:12 | ESPR_ITS ---
RE: CLAUS ALVAREZ : 1950 DATE OF SERVICE: 04/05/2025 Claus Alvarez is doing fairly well now. She is still having shortness of breath. High flow oxygen is required, but she is in better spirits today. Does not complain of any chest pain or shortness of breath as long as she is on oxygen. OBJECTIVE: Vital Signs: Blood pressure 140/76, pulse 66. Neck: Supple. No JVD. Lungs: Decreased lung sounds. No rales. Heart: S1, S2 regular. No gallops. Abdomen: Thin and soft. Extremities: Mild edema. /Rectal: Not performed. ASSESSMENT/IMPRESSION: 1. Hypoxic respiratory failure secondary to acute respiratory distress syndrome, bilateral pneumonia. 2. Interstitial fibrosis. 3. Right ventricular dysfunction and moderate pulmonary hypertension secondary to pulmonary fibrosis, possibly group 3 pulmonary hypertension. RECOMMENDATIONS: Continue with high flow oxygen and antibiotics and steroid therapy. She is not deteriorating, but she is not improving much either. DT: 23:45:24 TT: 00:11:00 Ref: [id number] - TID: [id number]
[2025-04-06] MEDS: ALBUTEROL/IPRATROPIUM (Duoneb) RT SOL 3 ML NEBU INH ×5 (02:25→22:24)
[2025-04-06] MEDS: GABAPENTIN 300 MG CAPSULE PO ×3 (05:15→21:04)
[2025-04-06 05:53] LABS: Basophils % (Auto) 0 % (0-2.5); Eosinophils % (Auto) 0 % (0-10); Hematocrit 39.5 % (36.0-46.0); Hemoglobin 13.1 g/dL (12.0-16.0); Immature Granulocytes % (Auto) 1 % (0-0); Immature Granulocytes Auto 0.08 Thou/mm3 (0.00-0.00); Lymphocytes # (Auto) 0.6 Thou/mm3 (1.0-4.8); Lymphocytes % (Auto) 7 % (10-50); Mean Corpuscular HGB Conc 33.2 g/dl (31.0-37.0); Mean Corpuscular Volume 94 fL (80-100); Monocytes # (Auto) 0.4 Thou/mm3 (0.0-0.8); Monocytes % (Auto) 4 % (0-12); Neutrophils # (Auto) 7.6 Thou/mm3 (1.8-7.7); Neutrophils % (Auto) 88 % (37-80); Nucleated Red Blood Cell % 0 /100 WBC (0); Platelet Count 255 Thou/mm3 (140-440); RDW Standard Deviation 49.8 fL (36.4-46.3); Red Blood Count 4.22 Miln/mm3 (4.00-5.20); White Blood Count 8.6 Thou/mm3 (3.6-11.0)
[2025-04-06 06:20] LABS: Alanine Aminotransferase 38 U/L (10-49); Albumin, Serum 3.1 gm/dL (3.4-4.8); Albumin/Globulin Ratio 1.6 (1.2-2.2); Alkaline Phosphatase 101 U/L (46-116); Anion Gap 6 (7-16); BUN/Creatinine Ratio 50 Ratio (12-20); Bilirubin,Total 0.4 mg/dL (0.3-1.2); Blood Urea Nitrogen 35 mg/dL (9-23); Calcium 7.9 mg/dL (8.3-10.6); Calcium (Corrected) 8.6 mg/dL (8.5-10.1); Carbon Dioxide 30.8 mMol/L (20.0-31.0); Chloride 104 mMol/L (98-107); Creatinine (Component) 0.7 mg/dL (0.6-1.3); Estimated Creatinine Clearance 292.6 mL/min (>60); Globulin 1.9 gm/dL (2.3-3.5); Glucose 166 mg/dL (74-106); Osmolality,Calculated 293 (275-295); Sodium 141 mMol/L (136-145); eGFR > 60 See Note
[2025-04-06] MEDS: HYDROcodone/APAP 7.5/325 TABLET 1 TAB PO ×3 (08:24→21:13)
[2025-04-06] MEDS: PANTOPRAZOLE 40 MG TABLET PO (08:25)
[2025-04-06] MEDS: DOXYCYCLINE 100 MG TABLET PO ×2 (08:26→21:04)
[2025-04-06] MEDS: ATORVASTATIN CALCIUM 10 MG TABLET PO (08:26)
[2025-04-06] MEDS: guaiFENesin SYRUP 200 MG/10 ML UDC 100 MG PO (08:27)
[2025-04-06] MEDS: CITALOPRAM 20 MG TABLET PO (08:27)
[2025-04-06] MEDS: ENOXAPARIN SOD INJ 40 MG/0.4 ML SYRINGE SC (08:30)
[2025-04-06] MEDS: cefTRIAXone/D5w 1gm IV premix 1 GM/50 ML BAG IV (08:30)
--- NOTE | 2025-04-06 09:47 | PC.SS ---
ORTHOTIC TECHNICIAN confirmed with patient plan to d/c home with [facility]. Patient currently on 35L oxygen. Highest amount of oxygen that ambulance transport can accommodate is 15L.
--- NOTE | 2025-04-06 10:20 | PC.SS ---
Patient's niece, Adore Carrasco; .
--- NOTE | 2025-04-06 13:08 | ESPR_ITS ---
Documentation for date of: 04/06/25 Subjective Subjective Interval history: Patient examined at bedside. No events overnight, patient has no major complaints. She is saturating 98% O2 on 35 L high flow nasal cannula at 80% FiO2. Try to wean oxygen. Still tachypneic with a rate in the 30s. However she is feeling comfortable. Continue antibiotics and steroids in setting of her pneumonia and pulmonary fibrosis. Goal oxygenation 92-94%. Will monitor her status over next few days. If unable to improve requirements or noticeable deterioration, will have comfort care measures discussion. Family is aware of prognosis. Exam Vital Signs Temp Pulse Resp BP Pulse Ox O2 Del Method O2 Flow Rate 97.5 F 78 18 152/79 H 99 High Flow Nasal Cannula 35 04/06/25 08:00 04/06/25 10:47 04/06/25 10:47 04/06/25 08:00 04/06/25 10:47 04/06/25 08:00 04/06/25 10:47 FiO2 80 04/06/25 10:47 Narrative Exam General: Elderly female, on HFNC, somewhat anxious, cooperative on high flow HEENT: NCAT, No JVD noted. Mucosa dry. Pupils are equal and reactive to light bilaterally Cardiovascular: Normal S1 and S2. Regular rate and rhythm. Respiratory: b/L wheezing, tachypnic Abdomen: Soft, nontender, not distended, normal bowel sounds. Skin: Warm to touch, dry, no rashes noted Musculoskeletal: No gross injuries. Able to move all 4 extremities. No pitting edema Neuro: Alert and oriented x3. No focal neuro deficits. Psych: Normal affect and mood Objective Labs 04/07/25 06:01 04/07/25 06:01 Labs: Laboratory Results - last 24 hr 04/06/25 05:36 WBC 8.6 RBC 4.22 Hgb 13.1 Hct 39.5 MCV 94 MCH 31.0 MCHC 33.2 RDW Std Deviation 49.8 H Plt Count 255 Neut % (Auto) 88 H Lymph % (Auto) 7 L [place] % (Auto) 4 Eos % (Auto) 0 Baso % (Auto) 0 Neut # (Auto) 7.6 Lymph # (Auto) 0.6 L [place] # (Auto) 0.4 Eos # (Auto) 0.0 Baso # (Auto) 0.0 Immature Gran # (Auto) 0.08 H Absolute Nucleated RBC 0.00 Immature Gran % 1 H Nucleated RBC % 0 Sodium 141 Potassium 5.0 Chloride 104 Carbon Dioxide 30.8 Anion Gap 6 L BUN 35 H Creatinine 0.7 Estim Creat Clear Calc 292.6 eGFR > 60 BUN/Creatinine Ratio 50 H Glucose 166 H Calculated Osmolality 293 Calcium 7.9 L Corrected Calcium 8.6 Total Bilirubin 0.4 ALT 38 Alkaline Phosphatase 101 Total Protein 5.0 L Albumin 3.1 L Globulin 1.9 L Albumin/Globulin Ratio 1.6 ABG Interpretation ABG results: 03/30/25 04/03/25 08:27 08:32 ABG pH 7.34 L 7.45 ABG pCO2 33 42 ABG pO2 97 91 ABG HCO3 18 L 29 H ABG O2 Saturation 97 98 ABG Base Excess -7 L 5 H Quality Measures Quality Measures none Advance care planning discussed with:: patient Assessment & Plan Assessment Current Active Medications: Generic Name Dose Route Start Last Admin Trade Name Freq PRN Reason Stop Dose Admin Acetaminophen 650 mg 03/30/25 08:57 Acetaminophen 325 Mg Tablet PO 04/29/25 08:56 Q6H PRN Fever >101.5 Hydrocodone Bitart/Acetaminophen 1 tab 04/04/25 16:32 04/06/25 08:24 Hydrocodone/Apap 7.5/325 Tablet PO 04/09/25 16:31 1 tab Q6HR PRN Administration PAIN Albuterol/Ipratropium 3 ml 03/30/25 11:00 04/06/25 10:47 Albuterol/Ipratropium (Duoneb) Rt Marisa 3 Ml Nebu INH 04/29/25 10:59 3 ml Q4HRRT WALDEMAR Administration Atorvastatin Calcium 10 mg 03/31/25 09:00 04/06/25 08:26 Atorvastatin Calcium 10 Mg Tablet PO 04/30/25 08:59 10 mg QDAY WALDEMAR Administration Citalopram Hydrobromide 20 mg 03/31/25 09:00 04/06/25 08:27 Citalopram 20 Mg Tablet PO 04/30/25 08:59 20 mg QDAY WALDEMAR Administration Doxycycline Hyclate 100 mg 04/01/25 09:45 04/06/25 08:26 Doxycycline 100 Mg Tablet PO 04/08/25 09:44 100 mg BID WALDEMAR Administration Protocol Enoxaparin Sodium 40 mg 03/30/25 09:00 04/06/25 08:30 Enoxaparin Sod Inj 40 Mg/0.4 Ml Syringe SC 04/13/25 08:59 40 mg QDAY WALDEMAR Administration Gabapentin 300 mg 03/30/25 22:00 04/06/25 05:15 Gabapentin 300 Mg Capsule PO 04/29/25 21:59 300 mg TID WALDEMAR Administration Guaifenesin 100 mg 03/30/25 17:18 04/06/25 08:27 Guaifenesin Syrup 200 Mg/10 Ml Udc PO 04/29/25 17:17 100 mg QID PRN Administration COUGH Protocol Ceftriaxone Sodium/Dextrose 1 gm in 50 mls @ 100 mls/hr 03/31/25 09:00 04/06/25 08:30 Rocephin/D5w 1gm Iv Premix IV 04/07/25 08:59 100 mls/hr QDAY WALDEMAR Administration Lorazepam 0.5 mg 04/03/25 10:14 Lorazepam 0.5 Mg Tablet PO X1 PRN anxiety Methylprednisolone Sodium Succinate 80 mg 04/02/25 14:00 04/06/25 05:15 Methylprednisolone Sod Succ 40 Mg Vial IVP 04/09/25 13:59 80 mg TID WALDEMAR Administration Ondansetron HCl 4 mg 03/30/25 08:57 03/30/25 10:11 Ondansetron Inj 2 Mg/Ml Inj 2 Ml IVP 04/29/25 08:56 4 mg Q6H PRN Administration NAUSEA OR VOMITING Protocol Pantoprazole Sodium 40 mg 03/30/25 16:00 04/06/25 08:25 Pantoprazole 40 Mg Tablet PO 04/29/25 15:59 40 mg QDAY WALDEMAR Administration Sennosides 1 tab 03/30/25 08:57 04/03/25 20:04 Senna Tablet PO 04/29/25 08:56 1 tab QDAY PRN Administration constipation Protocol Sodium Chloride 3 ml 03/30/25 06:30 Sodium Chloride Rt Marisa 0.9% 3 Ml Nebu INH 04/29/25 06:29 PRN PRN SOLN Nathan Bebe Carrasco is 75 yr female with PMH of HTN, HLD, depression, neuropathy presenting with chief complaint of shortness of breath worsening in the past 2 days. She had difficulty obtaining oxygen tank and once delivered was only using for short time due to issues with tubing. Patient admitted for AHRF 2/2 pulmonary fibrosis exacerbation. #AHRF 2/2 pulmonary fibrosis exacerbation #CAP SOB worsening with home pulse ox readings 75-80%. Stated that a few weeks ago patient went to [facility] for evaluation by computer help desk representative who diagnosed her with pulmonary fibrosis. There was a delay in delivery for home oxygen. Finally received the tank after seeing PCP in [place]. Was delivered past Sunday however used for only a short time due to tubing issues. She acutely deteriorated and presented to ED requiring BiPAP. She denies any history of smoking or exposure to smoke. CT chest from 04/02 showed worsening fibrosis with severe overlaying pneumonia. Had goals of care discussion with patient and due to poor long-term prognosis. Stated that they will talk with family. Cocci serology negative. ?DuoNeb q4hr -- IV Ceftriaxone 1 g daily (03/30- ? IV Doxycycline 100 mg BID (03/30- ?IV methylprednisone 80 mg TID (03/30- ?Pantoprazole 40 mg p.o. daily -continue to wean oxygen - Monitor fluid status and plan for diuresis if overloaded #Pulmonary arterial hypertension #Cor pulmonale 2/[address] Caceres consulted who did bedside echo. Estimated EF to be around 60%. There is evidence of enlarged pulmonary arteries seen on CT. Echo also showed dilated right side of the heart. Complete echo results showed EF 70%, hypercontractility of LV, RV dilation, moderate PAH 50-55 mmHg, cor pulmonale secondary to lung disease. -continue management as above -Appreciate cardiology recs #Hx hypertension #Hx hyperlipidemia #Hx depression #Hx neuropathy Resumed home meds: ?Escitalopram 20 mg daily ? Gabapentin 300 mg TID ?Atorvastatin 10 mg daily ? Holding BP medication as blood pressure is soft -Ativan 0.5mg x1 PRN for anxiety #NSTEMI, type II-resolved #Elevated lactic acid-resolved Health maintenance: Dispo: tele for AHRF on HF FEN: regular DVT prophylaxis: Lovenox CODE STATUS: Full code The patient's management plan was discussed with my attending physician Dr. Sims. Ruchi Nino, PGY1 Attending Provider Attestation/Addendum I attest that I was physically present for the evaluation, physical examination, lab and imaging review of the patient with the residents. I discussed the case with the residents and agree with the findings and plans of care as documented above. Kami Sims MD
--- NOTE | 2025-04-06 14:30 | PC.SS ---
Rounding Note: Plan is to d/c the patient home with hospice upon patient's ability to wean down high flow oxygen.
--- NOTE | 2025-04-06 17:06 | PC.SS ---
Hospice referral submitted on [facility]. Awaiting response. Preferred hospice agency is [facility]. Response is pending.
[2025-04-07] VITALS (11 sets, daily range): BP systolic 113–147; BP diastolic 73–86; PULSE 60–92; RESP 14–24; TEMP 35.9–36.2; O2SAT 92–99
--- NOTE | 2025-04-07 02:09 | ESPR_ITS ---
RE: CLAUS ALVAREZ : 1950 DATE OF SERVICE: 04/06/2025 SUBJECTIVE: Claus Alvarez is a 75-year-old lady with a history of hypertension and hypercholesterolemia who presented to the hospital with severe shortness of breath, respiratory failure, and doing fairly well with no chest pain or shortness of breath. She still has high flow oxygen at 35 liters, 70% FiO2. OBJECTIVE: General: She is in much better spirit today. Vital Signs: Blood pressure 130/76, pulse 68. Neck: Supple. No JVD. Lungs: Decreased breath sounds. No rales or rhonchi. Heart: S1 and S2 regular, distant. Abdomen: Thin and soft. Extremities: No edema. IMPRESSION: 1. Hypoxic respiratory failure secondary to acute respiratory distress syndrome (ARDS) and pneumonia. 2. Right heart failure, right ventricle elevated pressure due to lung disease. 3. Interstitial lung disease. 4. Hypertension. RECOMMENDATIONS: Continue present medications, oxygen supplements and she is making slow, but steady progress. I encouraged her to keep doing that for now as prognosis is still guarded. DT: 23:36:53 TT: 01:44:00 Ref: [id number] - TID: [id number]
[2025-04-07] MEDS: ALBUTEROL/IPRATROPIUM (Duoneb) RT SOL 3 ML NEBU INH ×5 (02:22→23:25)
[2025-04-07] MEDS: GABAPENTIN 300 MG CAPSULE PO ×3 (05:06→21:19)
[2025-04-07 06:26] LABS: Basophils % (Auto) 0 % (0-2.5); Eosinophils % (Auto) 0 % (0-10); Hematocrit 39.8 % (36.0-46.0); Hemoglobin 13.7 g/dL (12.0-16.0); Immature Granulocytes % (Auto) 2 % (0-0); Immature Granulocytes Auto 0.16 Thou/mm3 (0.00-0.00); Lymphocytes # (Auto) 0.5 Thou/mm3 (1.0-4.8); Lymphocytes % (Auto) 6 % (10-50); Mean Corpuscular HGB Conc 34.4 g/dl (31.0-37.0); Mean Corpuscular Hemoglobin 30.9 pg (25.0-35.0); Mean Corpuscular Volume 90 fL (80-100); Monocytes # (Auto) 0.4 Thou/mm3 (0.0-0.8); Monocytes % (Auto) 4 % (0-12); Neutrophils # (Auto) 8.4 Thou/mm3 (1.8-7.7); Neutrophils % (Auto) 88 % (37-80); Nucleated Red Blood Cell % 0 /100 WBC (0); Platelet Count 261 Thou/mm3 (140-440); RDW Standard Deviation 46.6 fL (36.4-46.3); Red Blood Count 4.44 Miln/mm3 (4.00-5.20); White Blood Count 9.5 Thou/mm3 (3.6-11.0)
[2025-04-07 06:41] LABS: Alanine Aminotransferase 59 U/L (10-49); Albumin, Serum 3.3 gm/dL (3.4-4.8); Albumin/Globulin Ratio 1.8 (1.2-2.2); Alkaline Phosphatase 101 U/L (46-116); Anion Gap 7 (7-16); BUN/Creatinine Ratio 51 Ratio (12-20); Bilirubin,Total 0.4 mg/dL (0.3-1.2); Blood Urea Nitrogen 36 mg/dL (9-23); Calcium 8.4 mg/dL (8.3-10.6); Chloride 104 mMol/L (98-107); Creatinine (Component) 0.7 mg/dL (0.6-1.3); Estimated Creatinine Clearance 58.2 mL/min (>60); Globulin 1.8 gm/dL (2.3-3.5); Glucose 168 mg/dL (74-106); Osmolality,Calculated 293 (275-295); Potassium 5.5 mMol/L (3.4-5.1); Sodium 141 mMol/L (136-145); Total Protein 5.1 gm/dL (5.7-8.2); eGFR > 60 See Note
[2025-04-07] MEDS: ATORVASTATIN CALCIUM 10 MG TABLET PO (08:17)
[2025-04-07] MEDS: CITALOPRAM 20 MG TABLET PO (08:18)
[2025-04-07] MEDS: ENOXAPARIN SOD INJ 40 MG/0.4 ML SYRINGE SC (08:18)
[2025-04-07] MEDS: PANTOPRAZOLE 40 MG TABLET PO (08:18)
[2025-04-07] MEDS: HYDROcodone/APAP 7.5/325 TABLET 1 TAB PO ×3 (08:18→21:19)
[2025-04-07] MEDS: DOXYCYCLINE 100 MG TABLET PO (08:18)
[2025-04-07] MEDS: SOD POLYSTYRENE SULFON SUSP 15 GM/60 ML BTL 30 GM PO (08:20)
[2025-04-07] MEDS: INSULIN HUM REGULAR 1 UNIT/0.01 ML (PER UNIT) 5 UNIT IV (11:46)
[2025-04-07 13:08] LABS: Albumin, Serum 3.3 gm/dL (3.4-4.8); Anion Gap 9 (7-16); BUN/Creatinine Ratio 53 Ratio (12-20); Blood Urea Nitrogen 37 mg/dL (9-23); Calcium 8.3 mg/dL (8.3-10.6); Calcium (Corrected) 8.9 mg/dL (8.5-10.1); Carbon Dioxide 29.8 mMol/L (20.0-31.0); Chloride 105 mMol/L (98-107); Creatinine (Component) 0.7 mg/dL (0.6-1.3); Estimated Creatinine Clearance 58.2 mL/min (>60); Glucose 204 mg/dL (74-106); Osmolality,Calculated 301 (275-295); Phosphorous 2.4 mg/dL (2.4-5.1); Potassium 4.4 mMol/L (3.4-5.1); Sodium 144 mMol/L (136-145); eGFR > 60 See Note
--- NOTE | 2025-04-07 13:37 | ESPR_ITS ---
<Statement entered by Crissy Monreal MD - 04/07/25 14:07> Patient was seen and examined at bedside. No acute overnight events. Patient is still on high flow with FiO2 of 75%, saturating at 92. Labs were reviewed which revealed hyperkalemia of 5.5, Kayexalate along with insulin 5 was given, will follow-up with repeat renal panel at 12 PM. Patient completed pneumonia treatment for 7 days, doxycycline and Rocephin was discontinued Will continue with IV steroids, monitor her breathing status, In the next 1 or 2 days discussion will be held about discharging patient to hospice or starting comfort care in a hospital setting. Will follow-up patients response to current treatment. However patient prognosis still guarded. I personally saw and examined the patient and discussed the assessment and plan with the entire medicine team, including my attending , Crissy Monreal M.D. PGY-2 Disclaimer: Despite multiple revisions, due to the dictation software being used, the document bellow may not be free of grammatical errors including phonetic/typographic errors. However, this does not deter from our commitment to providing health care in the patient's best interest in mind. Documentation for date of: 04/07/25 Subjective Subjective Interval history: Patient examined at bedside. No events overnight, patient has no major complaints. She is saturating 93% O2 on 30 L HFNC at 75% FiO2. Try to wean oxygen. Still tachypneic with a rate in the 30s. However she is feeling comfortable. Hyperkalemia 5.5 on CMP. Gave Kayexalate 30 and 10 units regular insulin. Repeat potassium in afternoon shows improvement with downtrend to 4.4. Antibiotic course completed for treatment of PNA. Continue steroids in setting of her pulmonary fibrosis. Goal oxygenation 92-94%. Will monitor her status over next few days. If unable to improve requirements or noticeable deterioration, will have comfort care measures discussion. Family is aware of prognosis. Exam Vital Signs Temp Pulse Resp BP Pulse Ox O2 Del Method O2 Flow Rate 97.0 F 84 24 H 113/78 95 High Flow Nasal Cannula 30 04/07/25 12:00 04/07/25 12:00 04/07/25 12:04/07/25 12:04/07/25 12:04/07/25 12:04/07/25 12:00 FiO2 75 04/07/25 12:00 Narrative Exam General: Elderly female, on HFNC, somewhat anxious, cooperative on high flow HEENT: NCAT, No JVD noted. Mucosa dry. Pupils are equal and reactive to light bilaterally Cardiovascular: Normal S1 and S2. Regular rate and rhythm. Respiratory: b/L wheezing, tachypnic Abdomen: Soft, nontender, not distended, normal bowel sounds. Skin: Warm to touch, dry, no rashes noted Musculoskeletal: No gross injuries. Able to move all 4 extremities. No pitting edema Neuro: Alert and oriented x3. No focal neuro deficits. Psych: Normal affect and mood Objective Labs 04/08/25 05:41 04/08/25 05:41 Labs: Laboratory Results - last 24 hr 04/07/25 04/07/25 06:01 12:41 WBC 9.5 RBC 4.44 Hgb 13.7 Hct 39.8 MCV 90 MCH 30.9 MCHC 34.4 RDW Std Deviation 46.6 H Plt Count 261 Neut % (Auto) 88 H Lymph % (Auto) 6 L [place] % (Auto) 4 Eos % (Auto) 0 Baso % (Auto) 0 Neut # (Auto) 8.4 H Lymph # (Auto) 0.5 L [place] # (Auto) 0.4 Eos # (Auto) 0.0 Baso # (Auto) 0.0 Immature Gran # (Auto) 0.16 H Absolute Nucleated RBC 0.00 Immature Gran % 2 H Nucleated RBC % 0 Sodium 141 144 Potassium 5.5 H D 4.4 D Chloride 104 105 Carbon Dioxide 30.0 29.8 Anion Gap 7 9 BUN 36 H 37 H Creatinine 0.7 0.7 Estim Creat Clear Calc 58.2 L 58.2 L eGFR > 60 > 60 BUN/Creatinine Ratio 51 H 53 H Glucose 168 H 204 H Calculated Osmolality 293 301 H Calcium 8.4 8.3 Corrected Calcium 9.0 8.9 Phosphorus 2.4 Total Bilirubin 0.4 ALT 59 H Alkaline Phosphatase 101 Total Protein 5.1 L Albumin 3.3 L 3.3 L Globulin 1.8 L Albumin/Globulin Ratio 1.8 ABG Interpretation ABG results: 03/30/25 04/03/25 08:27 08:32 ABG pH 7.34 L 7.45 ABG pCO2 33 42 ABG pO2 97 91 ABG HCO3 18 L 29 H ABG O2 Saturation 97 98 ABG Base Excess -7 L 5 H Quality Measures Quality Measures none Advance care planning discussed with:: patient Assessment & Plan Assessment Current Active Medications: Generic Name Dose Route Start Last Admin Trade Name Freq PRN Reason Stop Dose Admin Acetaminophen 650 mg 03/30/25 08:57 Acetaminophen 325 Mg Tablet PO 04/29/25 08:56 Q6H PRN Fever >101.5 Hydrocodone Bitart/Acetaminophen 1 tab 04/04/25 16:32 04/07/25 08:18 Hydrocodone/Apap 7.5/325 Tablet PO 04/09/25 16:31 1 tab Q6HR PRN Administration PAIN Albuterol/Ipratropium 3 ml 03/30/25 11:00 04/07/25 10:50 Albuterol/Ipratropium (Duoneb) Rt Marisa 3 Ml Nebu INH 04/29/25 10:59 3 ml Q4HRRT WALDEMAR Administration Atorvastatin Calcium 10 mg 03/31/25 09:00 04/07/25 08:17 Atorvastatin Calcium 10 Mg Tablet PO 04/30/25 08:59 10 mg QDAY WALDEMAR Administration Citalopram Hydrobromide 20 mg 03/31/25 09:00 04/07/25 08:18 Citalopram 20 Mg Tablet PO 04/30/25 08:59 20 mg QDAY WALDEMAR Administration Dextrose 25 ml 04/07/25 10:47 Dextrose 50%-Water Inj 50 Ml Syringe IV 05/07/25 10:46 Q15MIN PRN BG 50-70 responsive npo pt Dextrose 50 ml 04/07/25 10:47 Dextrose 50%-Water Inj 50 Ml Syringe IV 05/07/25 10:46 Q15MIN PRN BG <50 OR BG <70 & pt unresponsive Enoxaparin Sodium 40 mg 03/30/25 09:00 04/07/25 08:18 Enoxaparin Sod Inj 40 Mg/0.4 Ml Syringe SC 04/13/25 08:59 40 mg QDAY WALDEMAR Administration Gabapentin 300 mg 03/30/25 22:00 04/07/25 05:06 Gabapentin 300 Mg Capsule PO 04/29/25 21:59 300 mg TID WALDEMAR Administration Glucagon 1 mg 04/07/25 10:47 Glucagon Inj 1 Mg Vial IM Q15MIN PRN BG <70, and no IV access Guaifenesin 100 mg 03/30/25 17:18 04/06/25 08:27 Guaifenesin Syrup 200 Mg/10 Ml Udc PO 04/29/25 17:17 100 mg QID PRN Administration COUGH Protocol Lorazepam 0.5 mg 04/03/25 10:14 Lorazepam 0.5 Mg Tablet PO X1 PRN anxiety Methylprednisolone Sodium Succinate 80 mg 04/02/25 14:00 04/07/25 05:06 Methylprednisolone Sod Succ 40 Mg Vial IVP 04/09/25 13:59 80 mg TID WALDEMAR Administration Ondansetron HCl 4 mg 03/30/25 08:57 03/30/25 10:11 Ondansetron Inj 2 Mg/Ml Inj 2 Ml IVP 04/29/25 08:56 4 mg Q6H PRN Administration NAUSEA OR VOMITING Protocol Pantoprazole Sodium 40 mg 03/30/25 16:00 04/07/25 08:18 Pantoprazole 40 Mg Tablet PO 04/29/25 15:59 40 mg QDAY WALDEMAR Administration Sennosides 1 tab 03/30/25 08:57 04/03/25 20:04 Senna Tablet PO 04/29/25 08:56 1 tab QDAY PRN Administration constipation Protocol Sodium Chloride 3 ml 03/30/25 06:30 Sodium Chloride Rt Marisa 0.9% 3 Ml Nebu INH 04/29/25 06:29 PRN PRN SOLN Nathan Bebe Carrasco is 75 yr female with PMH of HTN, HLD, depression, neuropathy presenting with chief complaint of shortness of breath worsening in the past 2 days. She had difficulty obtaining oxygen tank and once delivered was only using for short time due to issues with tubing. Patient admitted for AHRF 2/2 pulmonary fibrosis exacerbation. #AHRF 2/2 pulmonary fibrosis exacerbation #CAP SOB worsening with home pulse ox readings 75-80%. Stated that a few weeks ago patient went to [place] for evaluation by loan consultant who diagnosed her with pulmonary fibrosis. There was a delay in delivery for home oxygen. Finally received the tank after seeing PCP in [place]. Was delivered past Sunday however used for only a short time due to tubing issues. She acutely deteriorated and presented to ED requiring BiPAP. She denies any history of smoking or exposure to smoke. CT chest from 04/02 showed worsening fibrosis with severe overlaying pneumonia. Had goals of care discussion with patient and due to poor long-term prognosis. Stated that they will talk with family. Cocci serology negative. ?DuoNeb q4hr -- IV Ceftriaxone 1 g daily (03/30-04/07) ? IV Doxycycline 100 mg BID (03/30-04/07) ?IV methylprednisone 80 mg TID (03/30- ?Pantoprazole 40 mg p.o. daily -continue to wean oxygen - Monitor fluid status and plan for diuresis if overloaded #Pulmonary arterial hypertension #Cor pulmonale 2/[address] Caceres consulted who did bedside echo. Estimated EF to be around 60%. There is evidence of enlarged pulmonary arteries seen on CT. Echo also showed dilated right side of the heart. Complete echo results showed EF 70%, hypercontractility of LV, RV dilation, moderate PAH 50-55 mmHg, cor pulmonale secondary to lung disease. -continue management as above -Appreciate cardiology recs #Electrolytes abnormalities #Hyperkalemia Hyperkalemia 5.5 on CMP. Gave Kayexalate 30 and 10 units regular insulin -repeat BMP in afternoon show downtrended potassium 4.4 -daily CMP #Hx hypertension #Hx hyperlipidemia #Hx depression #Hx neuropathy Resumed home meds: ?Escitalopram 20 mg daily ? Gabapentin 300 mg TID ?Atorvastatin 10 mg daily ? Holding BP medication as blood pressure is soft -Ativan 0.5mg x1 PRN for anxiety #NSTEMI, type II-resolved #Elevated lactic acid-resolved Health maintenance: Dispo: tele for AHRF on HF FEN: regular DVT prophylaxis: Lovenox CODE STATUS: Full code The patient's management plan was discussed with my attending physician Dr. Zimmerman. Ruchi Nino, PGY1 Attending Provider Attestation/Addendum I have examined the patient, reviewed labs and imaging findings, discussed the case with the resident(s), and reviewed entered orders. I agree with the plan of care as outlined in this note, with these additional summaries/recommendations: Patient seen at bedside. No acute overnight events. Today patient is on high flow nasal cannula 30 L with FiO2 75% which is slightly improved from yesterday. Etiology for acute hypoxic respiratory failure is multifactorial secondary to pulmonary fibrosis, community-acquired pneumonia, and pulmonary arterial hypertension. Patient has now completed appropriate treatment for community- acquired pneumonia. No further antibiotics needed. Likely not idiopathic pulmonary fibrosis and we will continue with IV Solu-Medrol plus breathing treatments. Continue high flow and wean as tolerated. We will give 1 dose of Lasix today. Continue chest physiotherapy. If patient significantly improves she can be evaluated outpatient for treatment of pulmonary hypertension and pulmonary fibrosis although prognosis is poor and patient unlikely to improve. She is considering pursuing hospice although barrier currently is her O2 requirements. Continue home antianxiety medications and gabapentin for neuropathy. Patient and updated on the plan and in agreement. Please see residents note for additional details and management. Dr. Erasmo MD
--- NOTE | 2025-04-07 15:12 | PC.SS ---
Rounding Note: Patient remains on high flow oxygen. Plan is titrate down oxygen.
--- NOTE | 2025-04-07 23:54 | ESPR_ITS ---
RE: CLAUS ALVAREZ : 1950 DATE OF SERVICE: 04/07/2025 SUBJECTIVE: Claus Alvarez is seen for cardiovascular assessment, admitted to the hospital with Acute_ hypoxic respiratory failure secondary to pneumonia, ARDS and some element of heart failure, mostly improved. She is still requiring high flow oxygen, not making much progress, though she is able to manage okay. Her lab data showed white count is normal now and the rest of the oxygenation is improving gradually, but still requiring very high flow oxygen. OBJECTIVE: Vital Signs: Blood pressure 140/70, pulse 82. Neck: Supple. No JVD. Lungs: Decreased breath sounds bilateral crackles at the base. Bronchial bleeding is still present. Heart: S1, S2 regular. No gallops. Abdomen: Thin and soft. Extremities: No edema. /RECTAL: Not performed. IMPRESSION: 1. Acute hypoxic respiratory failure secondary to pulmonary fibrosis and pneumonia. 2. Mild hypertension. RECOMMENDATIONS: 1. Continue methylprednisolone and she is also continued on antibiotic therapy. 2. High-flow oxygen is being given. 3. Diuretics have been discontinued. Prognosis is still poor. Condition remains critical, but stable for now. DT: 21:40:15 TT: 22:46:00 Ref: [id number] - TID: [id number] MTDD
[2025-04-08] VITALS (13 sets, daily range): BP systolic 132–156; BP diastolic 72–86; PULSE 54–94; RESP 17–22; TEMP 36.1–36.2; O2SAT 89–99; BMI 24.0
[2025-04-08] MEDS: ALBUTEROL/IPRATROPIUM (Duoneb) RT SOL 3 ML NEBU INH ×6 (03:48→23:13)
[2025-04-08] MEDS: SENNA TABLET 1 TAB PO (05:46)
[2025-04-08] MEDS: GABAPENTIN 300 MG CAPSULE PO ×3 (05:46→21:54)
[2025-04-08 06:29] LABS: Basophils % (Auto) 0 % (0-2.5); Eosinophils % (Auto) 0 % (0-10); Hematocrit 38.3 % (36.0-46.0); Hemoglobin 12.4 g/dL (12.0-16.0); Immature Granulocytes % (Auto) 2 % (0-0); Immature Granulocytes Auto 0.13 Thou/mm3 (0.00-0.00); Lymphocytes # (Auto) 0.5 Thou/mm3 (1.0-4.8); Lymphocytes % (Auto) 5 % (10-50); Mean Corpuscular HGB Conc 32.4 g/dl (31.0-37.0); Mean Corpuscular Hemoglobin 30.8 pg (25.0-35.0); Mean Corpuscular Volume 95 fL (80-100); Monocytes # (Auto) 0.4 Thou/mm3 (0.0-0.8); Monocytes % (Auto) 5 % (0-12); Neutrophils # (Auto) 7.6 Thou/mm3 (1.8-7.7); Neutrophils % (Auto) 88 % (37-80); Nucleated Red Blood Cell % 0 /100 WBC (0); Platelet Count 230 Thou/mm3 (140-440); RDW Standard Deviation 49.6 fL (36.4-46.3); Red Blood Count 4.02 Miln/mm3 (4.00-5.20); White Blood Count 8.6 Thou/mm3 (3.6-11.0)
[2025-04-08 06:45] LABS: Alanine Aminotransferase 100 U/L (10-49); Albumin/Globulin Ratio 1.8 (1.2-2.2); Alkaline Phosphatase 92 U/L (46-116); Anion Gap 8 (7-16); BUN/Creatinine Ratio 53 Ratio (12-20); Bilirubin,Total 0.4 mg/dL (0.3-1.2); Blood Urea Nitrogen 37 mg/dL (9-23); Calcium 8.1 mg/dL (8.3-10.6); Calcium (Corrected) 8.9 mg/dL (8.5-10.1); Carbon Dioxide 34.7 mMol/L (20.0-31.0); Chloride 103 mMol/L (98-107); Creatinine (Component) 0.7 mg/dL (0.6-1.3); Estimated Creatinine Clearance 58.2 mL/min (>60); Globulin 1.7 gm/dL (2.3-3.5); Glucose 154 mg/dL (74-106); Osmolality,Calculated 302 (275-295); Potassium 4.4 mMol/L (3.4-5.1); Sodium 146 mMol/L (136-145); Total Protein 4.7 gm/dL (5.7-8.2); eGFR > 60 See Note
[2025-04-08] MEDS: ATORVASTATIN CALCIUM 10 MG TABLET PO (08:07)
[2025-04-08] MEDS: PANTOPRAZOLE 40 MG TABLET PO (08:07)
[2025-04-08] MEDS: ENOXAPARIN SOD INJ 40 MG/0.4 ML SYRINGE SC (08:07)
[2025-04-08] MEDS: CITALOPRAM 20 MG TABLET PO (08:07)
[2025-04-08] MEDS: HYDROcodone/APAP 7.5/325 TABLET 1 TAB PO ×3 (08:16→20:38)
--- NOTE | 2025-04-08 13:45 | PD.RESPRO ---
Documentation for date of: 04/08/25 Subjective Subjective Interval history: Patient examined at bedside. No events overnight, patient has no major complaints. She is saturating 93% O2 on 30 L HFNC at 75% FiO2. Try to wean oxygen every 2hrs by. Still tachypneic with a rate in the 30s. Labs unremarkable with sodium 146, potassium 4.4. Continue with daily CBC/BMP labs. Continue steroids in setting of her pulmonary fibrosis. Goal oxygenation 92-94%. She is interested in starting comfort care if no improvement in next couple days as barrier to hospice is the HFNC. 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 Exam Vital Signs Temp Pulse Resp BP Pulse Ox O2 Del Method O2 Flow Rate 97.1 F 70 19 144/72 H 94 L High Flow Nasal Cannula 30 04/08/25 12:00 04/08/25 12:00 04/08/25 12:00 04/08/25 12:00 04/08/25 12:00 04/08/25 12:00 04/08/25 12:00 FiO2 65 04/08/25 12:00 Narrative Exam General: Elderly female, on HFNC, somewhat anxious, cooperative on high flow HEENT: NCAT, No JVD noted. Mucosa dry. Pupils are equal and reactive to light bilaterally Cardiovascular: Normal S1 and S2. Regular rate and rhythm. Respiratory: b/L wheezing, tachypnic Abdomen: Soft, nontender, not distended, normal bowel sounds. Skin: Warm to touch, dry, no rashes noted Musculoskeletal: No gross injuries. Able to move all 4 extremities. No pitting edema Neuro: Alert and oriented x3. No focal neuro deficits. Psych: Normal affect and mood Objective Labs 04/09/25 05:30 04/09/25 05:30 Labs: Laboratory Results - last 24 hr 04/08/25 05:41 WBC 8.6 RBC 4.02 Hgb 12.4 Hct 38.3 MCV 95 MCH 30.8 MCHC 32.4 RDW Std Deviation 49.6 H Plt Count 230 D Neut % (Auto) 88 H Lymph % (Auto) 5 L [place] % (Auto) 5 Eos % (Auto) 0 Baso % (Auto) 0 Neut # (Auto) 7.6 Lymph # (Auto) 0.5 L [place] # (Auto) 0.4 Eos # (Auto) 0.0 Baso # (Auto) 0.0 Immature Gran # (Auto) 0.13 H Absolute Nucleated RBC 0.00 Immature Gran % 2 H Nucleated RBC % 0 Sodium 146 H Potassium 4.4 Chloride 103 Carbon Dioxide 34.7 H Anion Gap 8 BUN 37 H Creatinine 0.7 Estim Creat Clear Calc 58.2 L eGFR > 60 BUN/Creatinine Ratio 53 H Glucose 154 H D Calculated Osmolality 302 H Calcium 8.1 L Corrected Calcium 8.9 Total Bilirubin 0.4 ALT 100 H Alkaline Phosphatase 92 Total Protein 4.7 L Albumin 3.0 L Globulin 1.7 L Albumin/Globulin Ratio 1.8 ABG Interpretation ABG results: 03/30/25 04/03/25 08:27 08:32 ABG pH 7.34 L 7.45 ABG pCO2 33 42 ABG pO2 97 91 ABG HCO3 18 L 29 H ABG O2 Saturation 97 98 ABG Base Excess -7 L 5 H Quality Measures Quality Measures none Advance care planning discussed with:: patient Assessment & Plan Assessment Current Active Medications: Generic Name Dose Route Start Last Admin Trade Name Freq PRN Reason Stop Dose Admin Acetaminophen 650 mg 03/30/25 08:57 Acetaminophen 325 Mg Tablet PO 04/29/25 08:56 Q6H PRN Fever >101.5 Hydrocodone Bitart/Acetaminophen 1 tab 04/04/25 16:32 04/08/25 08:16 Hydrocodone/Apap 7.5/325 Tablet PO 04/09/25 16:31 1 tab Q6HR PRN Administration PAIN Albuterol/Ipratropium 3 ml 03/30/25 11:00 04/08/25 06:20 Albuterol/Ipratropium (Duoneb) Rt Marisa 3 Ml Nebu INH 04/29/25 10:59 3 ml Q4HRRT WALDEMAR Administration Atorvastatin Calcium 10 mg 03/31/25 09:00 04/08/25 08:07 Atorvastatin Calcium 10 Mg Tablet PO 04/30/25 08:59 10 mg QDAY WALDEMAR Administration Citalopram Hydrobromide 20 mg 03/31/25 09:00 04/08/25 08:07 Citalopram 20 Mg Tablet PO 04/30/25 08:59 20 mg QDAY WALDEMAR Administration Dextrose 25 ml 04/07/25 10:47 Dextrose 50%-Water Inj 50 Ml Syringe IV 05/07/25 10:46 Q15MIN PRN BG 50-70 responsive npo pt Dextrose 50 ml 04/07/25 10:47 Dextrose 50%-Water Inj 50 Ml Syringe IV 05/07/25 10:46 Q15MIN PRN BG <50 OR BG <70 & pt unresponsive Enoxaparin Sodium 40 mg 03/30/25 09:00 04/08/25 08:07 Enoxaparin Sod Inj 40 Mg/0.4 Ml Syringe SC 04/13/25 08:59 40 mg QDAY WALDEMAR Administration Gabapentin 300 mg 03/30/25 22:00 04/08/25 05:46 Gabapentin 300 Mg Capsule PO 04/29/25 21:59 300 mg TID WALDEMAR Administration Glucagon 1 mg 04/07/25 10:47 Glucagon Inj 1 Mg Vial IM Q15MIN PRN BG <70, and no IV access Guaifenesin 100 mg 03/30/25 17:18 04/06/25 08:27 Guaifenesin Syrup 200 Mg/10 Ml Udc PO 04/29/25 17:17 100 mg QID PRN Administration COUGH Protocol Methylprednisolone Sodium Succinate 80 mg 04/02/25 14:00 04/08/25 05:46 Methylprednisolone Sod Succ 40 Mg Vial IVP 04/09/25 13:59 80 mg TID WALDEMAR Administration Ondansetron HCl 4 mg 03/30/25 08:57 03/30/25 10:11 Ondansetron Inj 2 Mg/Ml Inj 2 Ml IVP 04/29/25 08:56 4 mg Q6H PRN Administration NAUSEA OR VOMITING Protocol Pantoprazole Sodium 40 mg 03/30/25 16:00 04/08/25 08:07 Pantoprazole 40 Mg Tablet PO 04/29/25 15:59 40 mg QDAY WALDEMAR Administration Sennosides 1 tab 03/30/25 08:57 04/08/25 05:46 Senna Tablet PO 04/29/25 08:56 1 tab QDAY PRN Administration constipation Protocol Sodium Chloride 3 ml 03/30/25 06:30 Sodium Chloride Rt Marisa 0.9% 3 Ml Nebu INH 04/29/25 06:29 PRN PRN SOLN Nathan Carrasco is 75 yr female with PMH of HTN, HLD, depression, neuropathy presenting with chief complaint of shortness of breath worsening in the past 2 days. She had difficulty obtaining oxygen tank and once delivered was only using for short time due to issues with tubing. Patient admitted for AHRF 2/2 pulmonary fibrosis exacerbation. #AHRF 2/2 pulmonary fibrosis exacerbation #CAP SOB worsening with home pulse ox readings 75-80%. Stated that a few weeks ago patient went to [place] for evaluation by partner management consultant who diagnosed her with pulmonary fibrosis. There was a delay in delivery for home oxygen. Finally received the tank after seeing PCP in [place]. Was delivered past Sunday however used for only a short time due to tubing issues. She acutely deteriorated and presented to ED requiring BiPAP. She denies any history of smoking or exposure to smoke. CT chest from 04/02 showed worsening fibrosis with severe overlaying pneumonia. Had goals of care discussion with patient and due to poor long-term prognosis. Stated that they will talk with family. Cocci serology negative. ?DuoNeb q4hr -- IV Ceftriaxone 1 g daily (03/30-04/07) ? IV Doxycycline 100 mg BID (03/30-04/07) ?IV methylprednisone 80 mg TID (03/30- ?Pantoprazole 40 mg p.o. daily -continue to wean oxygen q2hr - Monitor fluid status and plan for diuresis if overloaded #Pulmonary arterial hypertension #Cor pulmonale 2/[address] Caecres consulted who did bedside echo. Estimated EF to be around 60%. There is evidence of enlarged pulmonary arteries seen on CT. Echo also showed dilated right side of the heart. Complete echo results showed EF 70%, hypercontractility of LV, RV dilation, moderate PAH 50-55 mmHg, cor pulmonale secondary to lung disease. -continue management as above -Appreciate cardiology recs #Electrolytes abnormalities #Hyperkalemia-resovled -daily BMP #Hx hypertension #Hx hyperlipidemia #Hx depression #Hx neuropathy Resumed home meds: ?Escitalopram 20 mg daily ? Gabapentin 300 mg TID ?Atorvastatin 10 mg daily ? Holding BP medication as blood pressure is soft -Ativan 0.5mg x1 PRN for anxiety #NSTEMI, type II-resolved #Elevated lactic acid-resolved Health maintenance: Dispo: tele for AHRF on HFNC FEN: regular DVT prophylaxis: Lovenox CODE STATUS: Full code The patient's management plan was discussed with my attending physician Dr. Zimmerman. Ruchi Nino, PGY1 Attending Provider Attestation/Addendum I have examined the patient, reviewed labs and imaging findings, discussed the case with the resident(s), and reviewed entered orders. I agree with the plan of care as outlined in this note, with these additional summaries/recommendations: Patient seen at bedside. No acute overnight events. Today patient remains on high flow nasal cannula 30 L with FiO2 improved to 65% today from 75% yesterday. Acute hypoxic respiratory failure is multifactorial secondary to acquired pulmonary fibrosis, community-acquired pneumonia, pulmonary artery hypertension, and cor pulmonale. Patient has completed appropriate treatment course for pneumonia. Patient has been receiving breathing treatments and IV steroids for pulmonary fibrosis without improvement. Discussed with patient that we will try to wean from high flow nasal cannula today as she is been hospitalized for 9 days thus far. If no improvement in O2 requirements she is considering starting comfort care tomorrow. Overall prognosis remains poor. Patient updated on the plan and in agreement. All questions answered to satisfaction. Please see residents note for additional details management. Dr. Erasmo MD
[2025-04-09] VITALS (14 sets, daily range): BP systolic 124–154; BP diastolic 72–88; PULSE 48–106; RESP 16–27; TEMP 36–36.5; O2SAT 92–99; BMI 24.0
--- NOTE | 2025-04-09 02:26 | ESPR_ITS ---
RE: CLAUS ALVAREZ : 1950 DATE OF SERVICE: 04/08/2025 SUBJECTIVE: Claus Alvarez is seen for cardiac catheterization with history of hypertension. He came to acute hypoxic respiratory failure, severe interstitial pneumonia and fibrosis, now improving slightly, still on high flow oxygen 25 liters per minute, but tolerating well. She is still somewhat tired, but not having any chest pain or shortness of breath. OBJECTIVE: Vital Signs: Her examination shows 75% FiO2. Blood pressure 140/70, pulse 70, respirations 18, temperature normal. Neck: Supple. No JVD. Lungs: Decreased breath sounds. No rales or rhonchi. Heart: S1, S2 regular. effort. Abdomen: Soft. Lab data reviewed showed that his CBC is fairly normal. Chemistry panel also shows creatinine and BUN has improved significantly. Electrolytes are normal. ASSESSMENT: 1. Acute hypoxic respiratory failure secondary to mostly interstitial pneumonia and interstitial fibrosis, possible viral pneumonia. RECOMMENDATIONS: Continue high flow oxygen. The patient is still keeping positive mental attitude. Initially, she had volume overload. Now, there is no evidence of clinical diuretics are not continued anymore. DT: 23:28:45 TT: 00:42:00 Ref: [id number] - TID: [id number]
[2025-04-09] MEDS: ALBUTEROL/IPRATROPIUM (Duoneb) RT SOL 3 ML NEBU INH ×5 (02:59→22:40)
[2025-04-09] MEDS: GABAPENTIN 300 MG CAPSULE PO ×3 (05:29→22:11)
[2025-04-09] MEDS: SENNA TABLET 1 TAB PO (05:53)
[2025-04-09 06:29] LABS: Basophils % (Auto) 0 % (0-2.5); Eosinophils % (Auto) 0 % (0-10); Hematocrit 39.1 % (36.0-46.0); Hemoglobin 13.1 g/dL (12.0-16.0); Immature Granulocytes % (Auto) 2 % (0-0); Immature Granulocytes Auto 0.16 Thou/mm3 (0.00-0.00); Lymphocytes # (Auto) 0.5 Thou/mm3 (1.0-4.8); Lymphocytes % (Auto) 6 % (10-50); Mean Corpuscular HGB Conc 33.5 g/dl (31.0-37.0); Mean Corpuscular Hemoglobin 30.6 pg (25.0-35.0); Mean Corpuscular Volume 91 fL (80-100); Monocytes # (Auto) 0.3 Thou/mm3 (0.0-0.8); Monocytes % (Auto) 4 % (0-12); Neutrophils # (Auto) 8.1 Thou/mm3 (1.8-7.7); Neutrophils % (Auto) 89 % (37-80); Nucleated Red Blood Cell % 0 /100 WBC (0); Platelet Count 230 Thou/mm3 (140-440); RDW Standard Deviation 47.9 fL (36.4-46.3); Red Blood Count 4.28 Miln/mm3 (4.00-5.20); White Blood Count 9.1 Thou/mm3 (3.6-11.0)
[2025-04-09 06:33] LABS: ANA Screen, IFA NEGATIVE (NEGATIVE)
[2025-04-09 06:42] LABS: Anion Gap 7 (7-16); BUN/Creatinine Ratio 47 Ratio (12-20); Blood Urea Nitrogen 33 mg/dL (9-23); Carbon Dioxide 33.4 mMol/L (20.0-31.0); Chloride 103 mMol/L (98-107); Creatinine (Component) 0.7 mg/dL (0.6-1.3); Estimated Creatinine Clearance 58.2 mL/min (>60); Glucose 164 mg/dL (74-106); Osmolality,Calculated 296 (275-295); Potassium 4.2 mMol/L (3.4-5.1); Sodium 143 mMol/L (136-145); eGFR > 60 See Note
[2025-04-09] MEDS: CITALOPRAM 20 MG TABLET PO (08:36)
[2025-04-09] MEDS: ATORVASTATIN CALCIUM 10 MG TABLET PO (08:36)
[2025-04-09] MEDS: PANTOPRAZOLE 40 MG TABLET PO (08:36)
[2025-04-09] MEDS: HYDROcodone/APAP 7.5/325 TABLET 1 TAB PO (08:37)
[2025-04-09] MEDS: ENOXAPARIN SOD INJ 40 MG/0.4 ML SYRINGE SC (08:37)
[2025-04-09] MEDS: BUDESONIDE RT 0.25 MG/2 ML NEBU INH ×2 (10:24→18:40)
--- NOTE | 2025-04-09 13:52 | PD.RESPRO ---
Documentation for date of: 04/09/25 Subjective Subjective Interval history: Patient examined at bedside. No events overnight, patient has no major complaints. She is saturating 89% O2 on 25 L HFNC at 70% FiO2 at bedside. Try to wean oxygen every 2hrs. Still tachypneic with a rate in the 30s. Labs unremarkable. Decreased steroids to 40mg TID and start budesonide INH in setting of her pulmonary fibrosis. Goal oxygenation 92-94%. Continue to titrate oxygen as her goal is to be at home on hospice. If no improvement, she is aware that comfort care would be the alternative. 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 Exam Vital Signs Temp Pulse Resp BP Pulse Ox O2 Del Method O2 Flow Rate 97.0 F 87 23 H 124/72 95 High Flow Nasal Cannula 25 04/09/25 12:00 04/09/25 12:00 04/09/25 12:00 04/09/25 12:00 04/09/25 12:00 04/09/25 12:00 04/09/25 12:00 FiO2 70 04/09/25 12:00 Narrative Exam General: Elderly female, on HFNC, somewhat anxious, cooperative on high flow HEENT: NCAT, No JVD noted. Mucosa dry. Pupils are equal and reactive to light bilaterally Cardiovascular: Normal S1 and S2. Regular rate and rhythm. Respiratory: b/L wheezing, tachypnic Abdomen: Soft, nontender, not distended, normal bowel sounds. Skin: Warm to touch, dry, no rashes noted Musculoskeletal: No gross injuries. Able to move all 4 extremities. No pitting edema Neuro: Alert and oriented x3. No focal neuro deficits. Psych: Normal affect and mood Objective Labs 04/10/25 04:43 04/10/25 04:43 Labs: Laboratory Results - last 24 hr 04/02/25 04/09/25 05:25 05:30 WBC 9.1 RBC 4.28 Hgb 13.1 Hct 39.1 MCV 91 MCH 30.6 MCHC 33.5 RDW Std Deviation 47.9 H Plt Count 230 Neut % (Auto) 89 H Lymph % (Auto) 6 L [place] % (Auto) 4 Eos % (Auto) 0 Baso % (Auto) 0 Neut # (Auto) 8.1 H Lymph # (Auto) 0.5 L [place] # (Auto) 0.3 Eos # (Auto) 0.0 Baso # (Auto) 0.0 Immature Gran # (Auto) 0.16 H Absolute Nucleated RBC 0.00 Immature Gran % 2 H Nucleated RBC % 0 Sodium 143 Potassium 4.2 Chloride 103 Carbon Dioxide 33.4 H Anion Gap 7 BUN 33 H Creatinine 0.7 Estim Creat Clear Calc 58.2 L eGFR > 60 BUN/Creatinine Ratio 47 H Glucose 164 H Calculated Osmolality 296 H Calcium 8.0 L KEYLA Screen NEGATIVE KEYLA Titer TNP KEYLA Titer 2 TNP KEYLA Titer 3 TNP KEYLA Pattern TNP KEYLA Pattern 2 TNP KEYLA Pattern 3 TNP ABG Interpretation ABG results: 03/30/25 04/03/25 08:27 08:32 ABG pH 7.34 L 7.45 ABG pCO2 33 42 ABG pO2 97 91 ABG HCO3 18 L 29 H ABG O2 Saturation 97 98 ABG Base Excess -7 L 5 H Quality Measures Quality Measures none Advance care planning discussed with:: patient Assessment & Plan Assessment Current Active Medications: Generic Name Dose Route Start Last Admin Trade Name Freq PRN Reason Stop Dose Admin Acetaminophen 650 mg 03/30/25 08:57 Acetaminophen 325 Mg Tablet PO 04/29/25 08:56 Q6H PRN Fever >101.5 Hydrocodone Bitart/Acetaminophen 1 tab 04/04/25 16:32 04/09/25 08:37 Hydrocodone/Apap 7.5/325 Tablet PO 04/09/25 16:31 1 tab Q6HR PRN Administration PAIN Albuterol/Ipratropium 3 ml 03/30/25 11:00 04/09/25 10:12 Albuterol/Ipratropium (Duoneb) Rt Marisa 3 Ml Nebu INH 04/29/25 10:59 3 ml Q4HRRT WALDEMAR Administration Atorvastatin Calcium 10 mg 03/31/25 09:00 04/09/25 08:36 Atorvastatin Calcium 10 Mg Tablet PO 04/30/25 08:59 10 mg QDAY WALDEMAR Administration Budesonide 0.25 mg 04/09/25 10:15 04/09/25 10:24 Budesonide Rt 0.25 Mg/2 Ml Nebu INH 05/09/25 10:14 0.25 mg BIDRT WALDEMAR Administration Citalopram Hydrobromide 20 mg 03/31/25 09:00 04/09/25 08:36 Citalopram 20 Mg Tablet PO 04/30/25 08:59 20 mg QDAY WALDEMAR Administration Dextrose 25 ml 04/07/25 10:47 Dextrose 50%-Water Inj 50 Ml Syringe IV 05/07/25 10:46 Q15MIN PRN BG 50-70 responsive npo pt Dextrose 50 ml 04/07/25 10:47 Dextrose 50%-Water Inj 50 Ml Syringe IV 05/07/25 10:46 Q15MIN PRN BG <50 OR BG <70 & pt unresponsive Enoxaparin Sodium 40 mg 03/30/25 09:00 04/09/25 08:37 Enoxaparin Sod Inj 40 Mg/0.4 Ml Syringe SC 04/13/25 08:59 40 mg QDAY WALDEAMR Administration Gabapentin 300 mg 03/30/25 22:00 04/09/25 13:11 Gabapentin 300 Mg Capsule PO 04/29/25 21:59 300 mg TID WALDEMAR Administration Glucagon 1 mg 04/07/25 10:47 Glucagon Inj 1 Mg Vial IM Q15MIN PRN BG <70, and no IV access Guaifenesin 100 mg 03/30/25 17:18 04/06/25 08:27 Guaifenesin Syrup 200 Mg/10 Ml Udc PO 04/29/25 17:17 100 mg QID PRN Administration COUGH Protocol Methylprednisolone Sodium Succinate 40 mg 04/09/25 10:08 04/09/25 13:12 Methylprednisolone Sod Succ 40 Mg Vial IVP 04/16/25 10:07 40 mg TID WALDEMAR Administration Ondansetron HCl 4 mg 03/30/25 08:57 03/30/25 10:11 Ondansetron Inj 2 Mg/Ml Inj 2 Ml IVP 04/29/25 08:56 4 mg Q6H PRN Administration NAUSEA OR VOMITING Protocol Pantoprazole Sodium 40 mg 03/30/25 16:00 04/09/25 08:36 Pantoprazole 40 Mg Tablet PO 04/29/25 15:59 40 mg QDAY WALDEMAR Administration Sennosides 1 tab 03/30/25 08:57 04/09/25 05:53 Senna Tablet PO 04/29/25 08:56 1 tab QDAY PRN Administration constipation Protocol Sodium Chloride 3 ml 03/30/25 06:30 Sodium Chloride Rt Marisa 0.9% 3 Ml Nebu INH 04/29/25 06:29 PRN PRN SOLN Nathan Carrasco is 75 yr female with PMH of HTN, HLD, depression, neuropathy presenting with chief complaint of shortness of breath worsening in the past 2 days. Presented to ED on 03/30/25. She had difficulty obtaining oxygen tank and once delivered was only using for short time due to issues with tubing. Patient admitted for AHRF 2/2 pulmonary fibrosis exacerbation. #AHRF 2/2 pulmonary fibrosis exacerbation #CAP SOB worsening with home pulse ox readings 75-80%. Stated that a few weeks ago patient went to [place] for evaluation by sharepoint administrator who diagnosed her with pulmonary fibrosis. There was a delay in delivery for home oxygen. Finally received the tank after seeing PCP in [place]. Was delivered past Sunday however used for only a short time due to tubing issues. She acutely deteriorated and presented to ED requiring BiPAP. She denies any history of smoking or exposure to smoke. CT chest from 04/02 showed worsening fibrosis with severe overlaying pneumonia. Had goals of care discussion with patient and due to poor long-term prognosis. Stated that they will talk with family. Cocci serology negative. ?DuoNeb q4hr -- IV Ceftriaxone 1 g daily (03/30-04/07) ? IV Doxycycline 100 mg BID (03/30-04/07) ?IV methylprednisone 40 mg TID (03/30- ?Pantoprazole 40 mg p.o. daily -continue to wean oxygen q2hr -start budesonide INH 0.5 BID - Monitor fluid status and plan for diuresis if overloaded #Pulmonary arterial hypertension #Cor pulmonale 2/[address] Caceres consulted who did bedside echo. Estimated EF to be around 60%. There is evidence of enlarged pulmonary arteries seen on CT. Echo also showed dilated right side of the heart. Complete echo results showed EF 70%, hypercontractility of LV, RV dilation, moderate PAH 50-55 mmHg, cor pulmonale secondary to lung disease. -continue management as above -Appreciate cardiology recs #Electrolytes abnormalities #Hyperkalemia-resovled -daily BMP #Hx hypertension #Hx hyperlipidemia #Hx depression #Hx neuropathy Resumed home meds: ?Escitalopram 20 mg daily ? Gabapentin 300 mg TID ?Atorvastatin 10 mg daily ? Holding BP medication as blood pressure is soft -Ativan 0.5mg x1 PRN for anxiety #NSTEMI, type II-resolved #Elevated lactic acid-resolved Health maintenance: Dispo: tele for AHRF on HFNC FEN: regular DVT prophylaxis: Lovenox CODE STATUS: Full code The patient's management plan was discussed with my attending physician Dr. Zimmerman. Ruchi Nino, PGY1 Attending Provider Attestation/Addendum I have examined the patient, reviewed labs and imaging findings, discussed the case with the resident(s), and reviewed entered orders. I agree with the plan of care as outlined in this note, with these additional summaries/recommendations: Patient seen at bedside. No acute overnight events. Today patient remains on high flow nasal cannula although now on 25L and FIO2 65% which is improved from 30L yesterday. Patient is showing signs of minimal improvement daily in regards to oxygen requirements and will continue to wean. Ultimately our goal is to wean oxygen enough that patient could go home on hospice. Acute hypoxic respiratory failure is multifactorial secondary to acquired pulmonary fibrosis, community-acquired pneumonia, pulmonary artery hypertension, and cor pulmonale. Patient has completed appropriate treatment course for pneumonia. Patient has been receiving breathing treatments and IV steroids for pulmonary fibrosis without improvement. Overall prognosis remains poor. Patient updated on the plan and in agreement. All questions answered to satisfaction. Please see residents note for additional details management. Dr. Erasmo MD
--- NOTE | 2025-04-09 14:53 | PC.SS ---
Rounding Note: Plan is to continue titrating oxygen. D/C plan is return home with hospice services.
[2025-04-09] MEDS: HYDROcodone/APAP 5/325 TABLET 1 TAB PO (18:53)
--- NOTE | 2025-04-09 22:35 | ESPR_ITS ---
RE: CLAUS ALVAREZ : 1950 DATE OF SERVICE: 04/09/2025 Claus Alvarez is a 75-year-old lady with history of hypertension, interstitial lung disease, who came to the hospital with pneumonia, hypoxic respiratory failure. Continues to have shortness of breath. Oxygen is still 25 liters per minute. She is feeling a little better. She is emotionally positive as well. OBJECTIVE: Vital Signs: Blood pressure 150/80, pulse 93, respirations 28. Temp normal. Neck: Supple. Lungs: Decreased breath sounds. Heart: S1, S2 regular. Abdomen: Thin and soft. Extremities: Mild edema. GENITOURINARY/RECTAL: Not performed. IMPRESSION/ASSESSMENT: 1. Hypoxic respiratory failure secondary to interstitial lung disease and pneumonia. 2. Mild hypertension. 3. Hypertensive cardiovascular disease. RECOMMENDATIONS: Continue high-flow oxygen for now and she is making slow and steady progress so far. DT: 21:37:54 TT: 22:32:00 Ref: [id number] - TID: [id number]
[2025-04-10] VITALS (15 sets, daily range): BP systolic 130–156; BP diastolic 74–88; PULSE 55–93; RESP 15–30; TEMP 35.9–36.8; O2SAT 88–99; BMI 23.3
[2025-04-10] MEDS: ALBUTEROL/IPRATROPIUM (Duoneb) RT SOL 3 ML NEBU INH ×7 (03:15→23:10)
[2025-04-10] MEDS: HYDROcodone/APAP 5/325 TABLET 1 TAB PO ×3 (05:28→19:16)
[2025-04-10] MEDS: GABAPENTIN 300 MG CAPSULE PO ×3 (05:28→21:49)
[2025-04-10] MEDS: SENNA TABLET 1 TAB PO ×2 (05:28→08:30)
[2025-04-10 05:50] LABS: Basophils % (Auto) 0 % (0-2.5); Eosinophils % (Auto) 0 % (0-10); Hematocrit 38.3 % (36.0-46.0); Hemoglobin 12.8 g/dL (12.0-16.0); Immature Granulocytes % (Auto) 2 % (0-0); Immature Granulocytes Auto 0.21 Thou/mm3 (0.00-0.00); Lymphocytes # (Auto) 0.6 Thou/mm3 (1.0-4.8); Lymphocytes % (Auto) 5 % (10-50); Mean Corpuscular HGB Conc 33.4 g/dl (31.0-37.0); Mean Corpuscular Hemoglobin 31.2 pg (25.0-35.0); Mean Corpuscular Volume 93 fL (80-100); Monocytes # (Auto) 0.4 Thou/mm3 (0.0-0.8); Monocytes % (Auto) 4 % (0-12); Neutrophils # (Auto) 10.7 Thou/mm3 (1.8-7.7); Neutrophils % (Auto) 89 % (37-80); Nucleated Red Blood Cell % 0 /100 WBC (0); Platelet Count 261 Thou/mm3 (140-440); RDW Standard Deviation 48.7 fL (36.4-46.3)
[2025-04-10 06:06] LABS: Anion Gap 5 (7-16); BUN/Creatinine Ratio 54 Ratio (12-20); Blood Urea Nitrogen 38 mg/dL (9-23); Calcium 8.2 mg/dL (8.3-10.6); Carbon Dioxide 33.7 mMol/L (20.0-31.0); Chloride 104 mMol/L (98-107); Creatinine (Component) 0.7 mg/dL (0.6-1.3); Estimated Creatinine Clearance 53.2 mL/min (>60); Glucose 181 mg/dL (74-106); Osmolality,Calculated 298 (275-295); Potassium 4.4 mMol/L (3.4-5.1); Sodium 143 mMol/L (136-145); eGFR > 60 See Note
[2025-04-10] MEDS: BUDESONIDE RT 0.25 MG/2 ML NEBU INH ×2 (06:47→18:35)
[2025-04-10] MEDS: POLYETHYLENE GLYCOL 17 GM PACKET PO (08:30)
[2025-04-10] MEDS: LACTULOSE SYRUP 20 GM/30 ML UDC 10 GM PO (08:30)
[2025-04-10] MEDS: PANTOPRAZOLE 40 MG TABLET PO (08:31)
[2025-04-10] MEDS: ATORVASTATIN CALCIUM 10 MG TABLET PO (08:31)
[2025-04-10] MEDS: CITALOPRAM 20 MG TABLET PO (08:31)
[2025-04-10] MEDS: ENOXAPARIN SOD INJ 40 MG/0.4 ML SYRINGE SC (08:31)
--- NOTE | 2025-04-10 14:12 | PD.RESPRO ---
Documentation for date of: 04/10/25 Subjective Subjective Interval history: Patient examined at bedside. No events overnight, patient has no major complaints. No anxiety. She has not had bowel movement for multiple days. Started on bowel regimen with MiraLAX and lactulose daily. She is saturating 90% O2 on 25 L HFNC at 65% FiO2 at bedside. Try to wean oxygen. Says she is comfortable with breathing rate. Wbc 12 likely due to steroids. She has completed full course antibiotics for PNA. Steroids to 40mg TID and budesonide INH in setting of her pulmonary fibrosis. Goal oxygenation 92-94%. Continue to titrate oxygen as her goal is to be at home on hospice. If no improvement, she is aware that comfort care would be the alternative. Family is aware of poor alf prognosis and updated daily. Questions answered to full. Exam Vital Signs Temp Pulse Resp BP Pulse Ox O2 Del Method O2 Flow Rate 97.2 F 75 30 H 144/78 H 93 L High Flow Nasal Cannula 25 04/10/25 12:00 04/10/25 12:04/10/25 12:04/10/25 12:04/10/25 12:04/10/25 12:00 04/10/25 12:00 FiO2 65 04/10/25 12:00 Narrative Exam General: Elderly female, on HFNC, cooperative on high flow HEENT: NCAT, No JVD noted. Mucosa dry. Pupils are equal and reactive to light bilaterally Cardiovascular: Normal S1 and S2. Regular rate and rhythm. Respiratory: b/L wheezing, tachypnic Abdomen: Soft, nontender, not distended, normal bowel sounds. Skin: Warm to touch, dry, no rashes noted Musculoskeletal: No gross injuries. Able to move all 4 extremities. No pitting edema Neuro: Alert and oriented x3. No focal neuro deficits. Psych: Normal affect and mood Objective Labs 04/11/25 04:56 04/11/25 04:56 Labs: Laboratory Results - last 24 hr 04/10/25 04:43 WBC 12.0 H RBC 4.10 Hgb 12.8 Hct 38.3 MCV 93 MCH 31.2 MCHC 33.4 RDW Std Deviation 48.7 H Plt Count 261 D Neut % (Auto) 89 H Lymph % (Auto) 5 L [place] % (Auto) 4 Eos % (Auto) 0 Baso % (Auto) 0 Neut # (Auto) 10.7 H Lymph # (Auto) 0.6 L [place] # (Auto) 0.4 Eos # (Auto) 0.0 Baso # (Auto) 0.0 Immature Gran # (Auto) 0.21 H Absolute Nucleated RBC 0.00 Immature Gran % 2 H Nucleated RBC % 0 Sodium 143 Potassium 4.4 Chloride 104 Carbon Dioxide 33.7 H Anion Gap 5 L BUN 38 H Creatinine 0.7 Estim Creat Clear Calc 53.2 L eGFR > 60 BUN/Creatinine Ratio 54 H Glucose 181 H Calculated Osmolality 298 H Calcium 8.2 L ABG Interpretation ABG results: 03/30/25 04/03/25 08:27 08:32 ABG pH 7.34 L 7.45 ABG pCO2 33 42 ABG pO2 97 91 ABG HCO3 18 L 29 H ABG O2 Saturation 97 98 ABG Base Excess -7 L 5 H Quality Measures Quality Measures none Advance care planning discussed with:: patient Assessment & Plan Assessment Current Active Medications: Generic Name Dose Route Start Last Admin Trade Name Freq PRN Reason Stop Dose Admin Acetaminophen 650 mg 03/30/25 08:57 Acetaminophen 325 Mg Tablet PO 04/29/25 08:56 Q6H PRN Fever >101.5 Hydrocodone Bitart/Acetaminophen 1 tab 04/09/25 18:02 04/10/25 13:11 Hydrocodone/Apap 5/325 Tablet PO 04/14/25 18:01 1 tab Q6HR PRN Administration PAIN Albuterol/Ipratropium 3 ml 03/30/25 11:00 04/10/25 06:46 Albuterol/Ipratropium (Duoneb) Rt Marisa 3 Ml Nebu INH 04/29/25 10:59 3 ml Q4HRRT WALDEMAR Administration Atorvastatin Calcium 10 mg 03/31/25 09:00 04/10/25 08:31 Atorvastatin Calcium 10 Mg Tablet PO 04/30/25 08:59 10 mg QDAY WALDEMAR Administration Budesonide 0.25 mg 04/09/25 10:15 04/10/25 06:47 Budesonide Rt 0.25 Mg/2 Ml Nebu INH 05/09/25 10:14 0.25 mg BIDRT WALDEMAR Administration Citalopram Hydrobromide 20 mg 03/31/25 09:00 04/10/25 08:31 Citalopram 20 Mg Tablet PO 04/30/25 08:59 20 mg QDAY WALDEMAR Administration Dextrose 25 ml 04/07/25 10:47 Dextrose 50%-Water Inj 50 Ml Syringe IV 05/07/25 10:46 Q15MIN PRN BG 50-70 responsive npo pt Dextrose 50 ml 04/07/25 10:47 Dextrose 50%-Water Inj 50 Ml Syringe IV 05/07/25 10:46 Q15MIN PRN BG <50 OR BG <70 & pt unresponsive Enoxaparin Sodium 40 mg 03/30/25 09:00 04/10/25 08:31 Enoxaparin Sod Inj 40 Mg/0.4 Ml Syringe SC 04/13/25 08:59 40 mg QDAY WALDMEAR Administration Gabapentin 300 mg 03/30/25 22:00 04/10/25 13:11 Gabapentin 300 Mg Capsule PO 04/29/25 21:59 300 mg TID WALDEMAR Administration Glucagon 1 mg 04/07/25 10:47 Glucagon Inj 1 Mg Vial IM Q15MIN PRN BG <70, and no IV access Guaifenesin 100 mg 03/30/25 17:18 04/06/25 08:27 Guaifenesin Syrup 200 Mg/10 Ml Udc PO 04/29/25 17:17 100 mg QID PRN Administration COUGH Protocol Lactulose 10 gm 04/10/25 09:00 04/10/25 08:30 Lactulose Syrup 20 Gm/30 Ml Udc PO 05/10/25 08:59 10 gm DAILY WALDEMAR Administration Protocol Methylprednisolone Sodium Succinate 40 mg 04/09/25 10:08 04/10/25 13:11 Methylprednisolone Sod Succ 40 Mg Vial IVP 04/16/25 10:07 40 mg TID WALDEMAR Administration Ondansetron HCl 4 mg 03/30/25 08:57 03/30/25 10:11 Ondansetron Inj 2 Mg/Ml Inj 2 Ml IVP 04/29/25 08:56 4 mg Q6H PRN Administration NAUSEA OR VOMITING Protocol Pantoprazole Sodium 40 mg 03/30/25 16:00 04/10/25 08:31 Pantoprazole 40 Mg Tablet PO 04/29/25 15:59 40 mg QDAY WALDEMAR Administration Polyethylene Glycol 17 gm 04/10/25 09:00 04/10/25 08:30 Polyethylene Glycol 17 Gm Packet PO 05/10/25 08:59 17 gm QDAY WALDEMAR Administration Sennosides 1 tab 04/10/25 09:00 04/10/25 08:30 Senna Tablet PO 05/10/25 08:59 1 tab QDAY WALDEMAR Administration Protocol Sodium Chloride 3 ml 03/30/25 06:30 Sodium Chloride Rt Marisa 0.9% 3 Ml Nebu INH 04/29/25 06:29 PRN PRN SOLN Nathan Bebe Carrasco is 75 yr female with PMH of HTN, HLD, depression, neuropathy presenting with chief complaint of shortness of breath worsening in the past 2 days. Presented to ED on 03/30/25. She had difficulty obtaining oxygen tank and once delivered was only using for short time due to issues with tubing. Patient admitted for AHRF 2/2 pulmonary fibrosis exacerbation. #AHRF 2/2 pulmonary fibrosis exacerbation #CAP SOB worsening with home pulse ox readings 75-80%. Stated that a few weeks ago patient went to [place] for evaluation by clinical laboratory science professor who diagnosed her with pulmonary fibrosis. There was a delay in delivery for home oxygen. Finally received the tank after seeing PCP in [place]. Was delivered past Sunday however used for only a short time due to tubing issues. She acutely deteriorated and presented to ED requiring BiPAP. She denies any history of smoking or exposure to smoke. CT chest from 04/02 showed worsening fibrosis with severe overlaying pneumonia. Had goals of care discussion with patient and due to poor long-term prognosis. Stated that they will talk with family. Cocci serology negative. ?DuoNeb q4hr -- IV Ceftriaxone 1 g daily (03/30-04/07) ? IV Doxycycline 100 mg BID (03/30-04/07) ?IV methylprednisone 40 mg TID (03/30- ?Pantoprazole 40 mg p.o. daily -continue to wean oxygen q2hr -budesonide INH 0.5 BID - Monitor fluid status and plan for diuresis if overloaded #Pulmonary arterial hypertension #Cor pulmonale 2/[address] Caceres consulted who did bedside echo. Estimated EF to be around 60%. There is evidence of enlarged pulmonary arteries seen on CT. Echo also showed dilated right side of the heart. Complete echo results showed EF 70%, hypercontractility of LV, RV dilation, moderate PAH 50-55 mmHg, cor pulmonale secondary to lung disease. -continue management as above -Appreciate cardiology recs #Electrolytes abnormalities #Hyperkalemia-resovled -daily BMP #Hx hypertension #Hx hyperlipidemia #Hx depression #Hx neuropathy Resumed home meds: ?Escitalopram 20 mg daily ? Gabapentin 300 mg TID ?Atorvastatin 10 mg daily ? Holding BP medication as blood pressure is soft -Ativan 0.5mg x1 PRN for anxiety #NSTEMI, type II-resolved #Elevated lactic acid-resolved Health maintenance: Dispo: tele for AHRF on HFNC FEN: regular DVT prophylaxis: Lovenox CODE STATUS: Full code The patient's management plan was discussed with my attending physician Dr. Zimmerman. Ruchi Nino, PGY1 Attending Provider Attestation/Addendum I have examined the patient, reviewed labs and imaging findings, discussed the case with the resident(s), and reviewed entered orders. I agree with the plan of care as outlined in this note, with these additional summaries/recommendations: Patient seen at bedside. No acute overnight events. Patient continues to express anxiety over shortness of breath. Today patient remains on high flow nasal cannula although now on 25L and FIO2 65% which is relatively unchanged from yesterday. Patient has been showing minimal improvement in O2 requirements over the last couple days but no change today. We will continue treatment for pulmonary fibrosis. Ultimately our goal is to wean oxygen enough that patient could go home on hospice. Acute hypoxic respiratory failure is multifactorial secondary to acquired pulmonary fibrosis, community-acquired pneumonia, pulmonary artery hypertension, and cor pulmonale. Patient has completed appropriate treatment course for pneumonia. Patient has been receiving breathing treatments and IV steroids for pulmonary fibrosis without improvement. Overall prognosis remains poor. Patient updated on the plan and in agreement. All questions answered to satisfaction. Please see residents note for additional details management. Dr. Erasmo MD
--- NOTE | 2025-04-10 15:28 | PC.SS ---
Rounding note: patient continues on highflow 02. Will be re-evaluated daily if stable for discharge. Discharge plan is to return home with [facility] services.
[2025-04-11] VITALS (12 sets, daily range): BP systolic 125–147; BP diastolic 73–89; PULSE 59–88; RESP 17–36; TEMP 35.9–37.1; O2SAT 94–99; BMI 23.9
[2025-04-11] MEDS: ALBUTEROL/IPRATROPIUM (Duoneb) RT SOL 3 ML NEBU INH ×6 (03:10→23:00)
[2025-04-11] MEDS: GABAPENTIN 300 MG CAPSULE PO ×3 (05:46→21:50)
[2025-04-11] MEDS: HYDROcodone/APAP 5/325 TABLET 1 TAB PO ×3 (05:48→20:07)
[2025-04-11 06:00] LABS: Basophils % (Auto) 0 % (0-2.5); Eosinophils % (Auto) 0 % (0-10); Hematocrit 36.9 % (36.0-46.0); Hemoglobin 12.3 g/dL (12.0-16.0); Immature Granulocytes % (Auto) 1 % (0-0); Immature Granulocytes Auto 0.18 Thou/mm3 (0.00-0.00); Lymphocytes # (Auto) 0.6 Thou/mm3 (1.0-4.8); Lymphocytes % (Auto) 4 % (10-50); Mean Corpuscular HGB Conc 33.3 g/dl (31.0-37.0); Mean Corpuscular Hemoglobin 30.9 pg (25.0-35.0); Mean Corpuscular Volume 93 fL (80-100); Monocytes # (Auto) 0.5 Thou/mm3 (0.0-0.8); Monocytes % (Auto) 4 % (0-12); Neutrophils # (Auto) 11.6 Thou/mm3 (1.8-7.7); Neutrophils % (Auto) 90 % (37-80); Nucleated Red Blood Cell % 0 /100 WBC (0); Platelet Count 225 Thou/mm3 (140-440); RDW Standard Deviation 48.6 fL (36.4-46.3); Red Blood Count 3.98 Miln/mm3 (4.00-5.20); White Blood Count 12.8 Thou/mm3 (3.6-11.0)
[2025-04-11 06:27] LABS: Anion Gap 9 (7-16); BUN/Creatinine Ratio 50 Ratio (12-20); Blood Urea Nitrogen 30 mg/dL (9-23); Carbon Dioxide 29.8 mMol/L (20.0-31.0); Chloride 105 mMol/L (98-107); Creatinine (Component) 0.6 mg/dL (0.6-1.3); Estimated Creatinine Clearance 67.7 mL/min (>60); Glucose 171 mg/dL (74-106); Osmolality,Calculated 297 (275-295); Potassium 4.6 mMol/L (3.4-5.1); Sodium 144 mMol/L (136-145); eGFR > 60 See Note
[2025-04-11] MEDS: BUDESONIDE RT 0.25 MG/2 ML NEBU INH (06:43)
[2025-04-11] MEDS: CITALOPRAM 20 MG TABLET PO (08:25)
[2025-04-11] MEDS: SENNA TABLET 1 TAB PO (08:25)
[2025-04-11] MEDS: ATORVASTATIN CALCIUM 10 MG TABLET PO (08:25)
[2025-04-11] MEDS: PANTOPRAZOLE 40 MG TABLET PO (08:25)
[2025-04-11] MEDS: POLYETHYLENE GLYCOL 17 GM PACKET PO (08:26)
[2025-04-11] MEDS: LACTULOSE SYRUP 20 GM/30 ML UDC 10 GM PO (08:26)
[2025-04-11] MEDS: ENOXAPARIN SOD INJ 40 MG/0.4 ML SYRINGE SC (08:26)
--- NOTE | 2025-04-11 10:39 | ESPR_ITS ---
Documentation for date of: 04/11/25 Subjective Subjective Interval history: Patient was seen and examined at bedside. Since admission patient was constipated, did not have any bowel movement, multiple bowel regimen was placed, however unsuccessful. Yesterday at night patient had a enema. However there was minimal output. Will continue bowel regimen, Patient is still hypoxic, down to 20 L, however FiO2 is 85, patient is saturating 90%. Our goal is to wean off oxygen as much as possible to the point where she would be able to to be discharged to home with hospice. Family was updated. They are agreed with the plan. For now continue current management, Exam Vital Signs Temp Pulse Resp BP Pulse Ox O2 Del Method O2 Flow Rate 96.6 F L 78 28 H 135/75 H 99 High Flow Nasal Cannula 20 04/11/25 08:00 04/11/25 10:29 04/11/25 10:29 04/11/25 08:00 04/11/25 10:29 04/11/25 08:00 04/11/25 10:29 FiO2 85 04/11/25 10:29 Narrative Exam General: Elderly female, on HFNC, somewhat anxious, cooperative on highflow HEENT: NCAT, No JVD noted. Mucosa dry. Pupils are equal and reactive to light bilaterally Cardiovascular: Normal S1 and S2. Regular rate and rhythm. Respiratory: Using accessory muscles, breath sound diminished in both sharma, no crackles, on high flow 85% saturating 90 Abdomen: Soft, nontender, not distended, normal bowel sounds. Skin: Warm to touch, dry, no rashes noted Musculoskeletal: No gross injuries. Able to move all 4 extremities. No pitting edema Neuro: Alert and oriented x3. No focal neuro deficits. Psych: Normal affect and mood Objective Labs 04/11/25 04:56 04/11/25 04:56 Labs: Laboratory Results - last 24 hr 04/11/25 04:56 WBC 12.8 H RBC 3.98 L Hgb 12.3 Hct 36.9 MCV 93 MCH 30.9 MCHC 33.3 RDW Std Deviation 48.6 H Plt Count 225 D Neut % (Auto) 90 H Lymph % (Auto) 4 L [place] % (Auto) 4 Eos % (Auto) 0 Baso % (Auto) 0 Neut # (Auto) 11.6 H Lymph # (Auto) 0.6 L [place] # (Auto) 0.5 Eos # (Auto) 0.0 Baso # (Auto) 0.0 Immature Gran # (Auto) 0.18 H Absolute Nucleated RBC 0.00 Immature Gran % 1 H Nucleated RBC % 0 Sodium 144 Potassium 4.6 Chloride 105 Carbon Dioxide 29.8 Anion Gap 9 BUN 30 H Creatinine 0.6 Estim Creat Clear Calc 67.7 eGFR > 60 BUN/Creatinine Ratio 50 H Glucose 171 H Calculated Osmolality 297 H Calcium 8.0 L ABG Interpretation ABG results: 03/30/25 04/03/25 08:27 08:32 ABG pH 7.34 L 7.45 ABG pCO2 33 42 ABG pO2 97 91 ABG HCO3 18 L 29 H ABG O2 Saturation 97 98 ABG Base Excess -7 L 5 H Quality Measures Quality Measures none Advance care planning discussed with:: patient Assessment & Plan Assessment Current Active Medications: Generic Name Dose Route Start Last Admin Trade Name Freq PRN Reason Stop Dose Admin Acetaminophen 650 mg 03/30/25 08:57 Acetaminophen 325 Mg Tablet PO 04/29/25 08:56 Q6H PRN Fever >101.5 Hydrocodone Bitart/Acetaminophen 1 tab 04/09/25 18:02 04/11/25 05:48 Hydrocodone/Apap 5/325 Tablet PO 04/14/25 18:01 1 tab Q6HR PRN Administration PAIN Albuterol/Ipratropium 3 ml 03/30/25 11:00 04/11/25 10:28 Albuterol/Ipratropium (Duoneb) Rt Marisa 3 Ml Nebu INH 04/29/25 10:59 3 ml Q4HRRT WALDEMAR Administration Atorvastatin Calcium 10 mg 03/31/25 09:00 04/11/25 08:25 Atorvastatin Calcium 10 Mg Tablet PO 04/30/25 08:59 10 mg QDAY WALDEMAR Administration Budesonide 0.25 mg 04/09/25 10:15 04/11/25 06:43 Budesonide Rt 0.25 Mg/2 Ml Nebu INH 05/09/25 10:14 0.25 mg BIDRT WALDEMAR Administration Citalopram Hydrobromide 20 mg 03/31/25 09:00 04/11/25 08:25 Citalopram 20 Mg Tablet PO 04/30/25 08:59 20 mg QDAY WALDEMAR Administration Dextrose 25 ml 04/07/25 10:47 Dextrose 50%-Water Inj 50 Ml Syringe IV 05/07/25 10:46 Q15MIN PRN BG 50-70 responsive npo pt Dextrose 50 ml 04/07/25 10:47 Dextrose 50%-Water Inj 50 Ml Syringe IV 05/07/25 10:46 Q15MIN PRN BG <50 OR BG <70 & pt unresponsive Enoxaparin Sodium 40 mg 03/30/25 09:00 04/11/25 08:26 Enoxaparin Sod Inj 40 Mg/0.4 Ml Syringe SC 04/13/25 08:59 40 mg QDAY WALDEMAR Administration Gabapentin 300 mg 03/30/25 22:00 04/11/25 05:46 Gabapentin 300 Mg Capsule PO 04/29/25 21:59 300 mg TID WALDEMAR Administration Glucagon 1 mg 04/07/25 10:47 Glucagon Inj 1 Mg Vial IM Q15MIN PRN BG <70, and no IV access Guaifenesin 100 mg 03/30/25 17:18 04/06/25 08:27 Guaifenesin Syrup 200 Mg/10 Ml Udc PO 04/29/25 17:17 100 mg QID PRN Administration COUGH Protocol Lactulose 10 gm 04/10/25 09:00 04/11/25 08:26 Lactulose Syrup 20 Gm/30 Ml Udc PO 05/10/25 08:59 10 gm DAILY WALDEMAR Administration Protocol Methylprednisolone Sodium Succinate 40 mg 04/09/25 10:08 04/11/25 05:46 Methylprednisolone Sod Succ 40 Mg Vial IVP 04/16/25 10:07 40 mg TID WALDEMAR Administration Ondansetron HCl 4 mg 03/30/25 08:57 03/30/25 10:11 Ondansetron Inj 2 Mg/Ml Inj 2 Ml IVP 04/29/25 08:56 4 mg Q6H PRN Administration NAUSEA OR VOMITING Protocol Pantoprazole Sodium 40 mg 03/30/25 16:00 04/11/25 08:25 Pantoprazole 40 Mg Tablet PO 04/29/25 15:59 40 mg QDAY WALDEMAR Administration Polyethylene Glycol 17 gm 04/10/25 09:00 04/11/25 08:26 Polyethylene Glycol 17 Gm Packet PO 05/10/25 08:59 17 gm QDAY WALDEMAR Administration Sennosides 1 tab 04/10/25 09:00 04/11/25 08:25 Senna Tablet PO 05/10/25 08:59 1 tab QDAY WALDEMAR Administration Protocol Sodium Chloride 3 ml 03/30/25 06:30 Sodium Chloride Rt Marisa 0.9% 3 Ml Nebu INH 04/29/25 06:29 PRN PRN SOLN Nathan Bebe Carrasoc is 75 yr female with PMH of HTN, HLD, depression, neuropathy presenting with chief complaint of shortness of breath worsening in the past 2 days. Presented to ED on 03/30/25. She had difficulty obtaining oxygen tank and once delivered was only using for short time due to issues with tubing. Patient admitted for AHRF 2/2 pulmonary fibrosis exacerbation. #AHRF 2/2 pulmonary fibrosis exacerbation #CAP SOB worsening with home pulse ox readings 75-80%. Stated that a few weeks ago patient went to [place] for evaluation by nuclear medicine tech who diagnosed her with pulmonary fibrosis. There was a delay in delivery for home oxygen. Finally received the tank after seeing PCP in [place]. Was delivered past Sunday however used for only a short time due to tubing issues. She acutely deteriorated and presented to ED requiring BiPAP. She denies any history of smoking or exposure to smoke. CT chest from 04/02 showed worsening fibrosis with severe overlaying pneumonia. Had goals of care discussion with patient and due to poor long-term prognosis. Stated that they will talk with family. Cocci serology negative. ?DuoNeb q4hr -- IV Ceftriaxone 1 g daily (03/30-04/07) ? IV Doxycycline 100 mg BID (03/30-04/07) ?IV methylprednisone 40 mg TID (03/30- ?Pantoprazole 40 mg p.o. daily -continue to wean oxygen q2hr -budesonide INH 0.5 BID - Monitor fluid status and plan for diuresis if overloaded #Pulmonary arterial hypertension #Cor pulmonale 2/[address] Caceres consulted who did bedside echo. Estimated EF to be around 60%. There is evidence of enlarged pulmonary arteries seen on CT. Echo also showed dilated right side of the heart. Complete echo results showed EF 70%, hypercontractility of LV, RV dilation, moderate PAH 50-55 mmHg, cor pulmonale secondary to lung disease. -continue management as above -Appreciate cardiology recs #Electrolytes abnormalities #Hyperkalemia-resovled -daily BMP #Hx hypertension #Hx hyperlipidemia #Hx depression #Hx neuropathy Resumed home meds: ?Escitalopram 20 mg daily ? Gabapentin 300 mg TID ?Atorvastatin 10 mg daily ? Holding BP medication as blood pressure is soft -Ativan 0.5mg x1 PRN for anxiety #NSTEMI, type II-resolved #Elevated lactic acid-resolved Health maintenance: Dispo: tele for AHRF on HFNC FEN: regular DVT prophylaxis: Lovenox CODE STATUS: Full code Patient care was discussed with attending physician Dr. Erasmo Monreal MD PGY-2 I have carefully reviewed this document. Due to imperfections in the voice software, there could be grammatical errors including phonetic/typographic errors. This in no way compromises the medical care the patient is receiving Attending Provider Attestation/Addendum I have examined the patient, reviewed labs and imaging findings, discussed the case with the resident(s), and reviewed entered orders. I agree with the plan of care as outlined in this note, with these additional summaries/recommendations: Patient seen at bedside. No acute overnight events. Patient remains on high flow nasal cannula although now on 20L and FIO2 85%. Patient continues to have slow improvement of 02 requirements although prognosis still guarded at this time. We will continue treatment for pulmonary fibrosis. Ultimately our goal is to wean oxygen enough that patient could go home on hospice. Acute hypoxic respiratory failure is multifactorial secondary to acquired pulmonary fibrosis, community-acquired pneumonia, pulmonary artery hypertension, and cor pulmonale. Patient has completed appropriate treatment course for pneumonia. Patient has been receiving breathing treatments and IV steroids for pulmonary fibrosis without improvement. Start as needed laxatives. Patient updated on the plan and in agreement. All questions answered to satisfaction. Please see residents note for additional details management. Dr. Erasmo MD
--- NOTE | 2025-04-11 13:00 | PC.RT ---
SS received copy of AD from Zoey. SS provided AD to Kailash LUGO and AD was scanned into patient's chart.
--- NOTE | 2025-04-11 23:11 | ESPR_ITS ---
RE: CLAUS ALVAREZ : 1950 DATE OF SERVICE: 04/11/2025 SUBJECTIVE: Claus Alvarez is still in reasonably good spirits, but she is not doing that well. She is still on 85% oxygen 20 L per minute, still struggling with shortness of breath complaints and she is still orthopneic. PHYSICAL EXAMINATION: Vital Signs: Shows blood pressure 140/80 and pulse 77. Neck: Supple. Lungs: Decreased breath sounds at the bases. Heart: S1 and S2 regular. S4 gallop. Abdomen: Thin and soft. Extremities: No edema. Genitourinary and Rectal: Not performed. LABORATORY DATA: Chemistry panel showed creatinine 0.6, but electrolytes are normal. IMPRESSION: 1. Acute hypoxic respiratory failure with interstitial pneumonia. 2. Pulmonary hypertension. RECOMMENDATIONS: Continue oxygen support and ventilatory support. Prognosis is still guarded. Condition remains critical, but stable. DT: 21:01:27 TT: 23:06:00 Ref: [id number] - TID: [id number] [facility]
[2025-04-12] VITALS (13 sets, daily range): BP systolic 124–153; BP diastolic 76–82; PULSE 62–99; RESP 12–30; TEMP 36.1–37.2; O2SAT 91–98; BMI 23.7
[2025-04-12] MEDS: HYDROcodone/APAP 5/325 TABLET 1 TAB PO ×4 (01:58→20:58)
[2025-04-12] MEDS: ALBUTEROL/IPRATROPIUM (Duoneb) RT SOL 3 ML NEBU INH ×6 (02:44→22:27)
[2025-04-12] MEDS: GABAPENTIN 300 MG CAPSULE PO ×3 (05:34→21:33)
[2025-04-12] MEDS: BUDESONIDE RT 0.25 MG/2 ML NEBU INH ×2 (06:50→18:48)
[2025-04-12] MEDS: ATORVASTATIN CALCIUM 10 MG TABLET PO (08:33)
[2025-04-12] MEDS: LACTULOSE SYRUP 20 GM/30 ML UDC 10 GM PO (08:33)
[2025-04-12] MEDS: ENOXAPARIN SOD INJ 40 MG/0.4 ML SYRINGE SC (08:33)
[2025-04-12] MEDS: CITALOPRAM 20 MG TABLET PO (08:33)
[2025-04-12] MEDS: SENNA TABLET 1 TAB PO (08:33)
[2025-04-12] MEDS: PANTOPRAZOLE 40 MG TABLET PO (08:33)
[2025-04-12] MEDS: Milk Of Magnesia Susp 30 ML UDC PO (08:33)
[2025-04-12] MEDS: POLYETHYLENE GLYCOL 17 GM PACKET PO (10:45)
--- NOTE | 2025-04-12 12:06 | ESPR_ITS ---
Documentation for date of: 04/12/25 Subjective Subjective Interval history: Patient examined at bedside. No events overnight, patient complains of feeling more tired. Still has not had BM. She is saturating 90% O2 on 25 L HFNC at 90% FiO2 at bedside. Not ammenable to try sitting in chair. Wbc 12 likely due to steroids. Steroids to 40mg TID and budesonide INH in setting of her pulmonary fibrosis. Encouraged to use bedside spirometry. Goal oxygenation 92-94%. Continue to titrate oxygen as her goal is to be at home on hospice. If no improvement, she is aware that comfort care would be the alternative. Family is aware of poor longterm prognosis and updated daily. Questions answered to full. Exam Vital Signs Temp Pulse Resp BP Pulse Ox O2 Del Method O2 Flow Rate 96.9 F 81 20 148/80 H 93 L High Flow Nasal Cannula 20 04/12/25 08:00 04/12/25 10:49 04/12/25 10:49 04/12/25 08:00 04/12/25 10:49 04/12/25 08:00 04/12/25 10:49 FiO2 60 04/12/25 10:49 Narrative Exam General: Elderly female, on HFNC, somewhat anxious, cooperative on highflow HEENT: NCAT, No JVD noted. Mucosa dry. Pupils are equal and reactive to light bilaterally Cardiovascular: Normal S1 and S2. Regular rate and rhythm. Respiratory: Using accessory muscles, breath sound diminished in both sharma, no crackles, on high flow Abdomen: Soft, nontender, not distended, normal bowel sounds. Skin: Warm to touch, dry, no rashes noted Musculoskeletal: No gross injuries. Able to move all 4 extremities. No pitting edema Neuro: Alert and oriented x3. No focal neuro deficits. Psych: Normal affect and mood Objective Labs 04/13/25 05:05 04/13/25 05:05 ABG Interpretation ABG results: 03/30/25 04/03/25 08:27 08:32 ABG pH 7.34 L 7.45 ABG pCO2 33 42 ABG pO2 97 91 ABG HCO3 18 L 29 H ABG O2 Saturation 97 98 ABG Base Excess -7 L 5 H Quality Measures Quality Measures none Advance care planning discussed with:: patient Assessment & Plan Assessment Current Active Medications: Generic Name Dose Route Start Last Admin Trade Name Freq PRN Reason Stop Dose Admin Acetaminophen 650 mg 03/30/25 08:57 Acetaminophen 325 Mg Tablet PO 04/29/25 08:56 Q6H PRN Fever >101.5 Hydrocodone Bitart/Acetaminophen 1 tab 04/09/25 18:02 04/12/25 08:32 Hydrocodone/Apap 5/325 Tablet PO 04/14/25 18:01 1 tab Q6HR PRN Administration PAIN Albuterol/Ipratropium 3 ml 03/30/25 11:00 04/12/25 10:49 Albuterol/Ipratropium (Duoneb) Rt Marisa 3 Ml Nebu INH 04/29/25 10:59 3 ml Q4HRRT WALDEMAR Administration Atorvastatin Calcium 10 mg 03/31/25 09:00 04/12/25 08:33 Atorvastatin Calcium 10 Mg Tablet PO 04/30/25 08:59 10 mg QDAY WALDEMAR Administration Budesonide 0.25 mg 04/09/25 10:15 04/12/25 06:50 Budesonide Rt 0.25 Mg/2 Ml Nebu INH 05/09/25 10:14 0.25 mg BIDRT WALDEMAR Administration Citalopram Hydrobromide 20 mg 03/31/25 09:00 04/12/25 08:33 Citalopram 20 Mg Tablet PO 04/30/25 08:59 20 mg QDAY WALDEMAR Administration Dextrose 25 ml 04/07/25 10:47 Dextrose 50%-Water Inj 50 Ml Syringe IV 05/07/25 10:46 Q15MIN PRN BG 50-70 responsive npo pt Dextrose 50 ml 04/07/25 10:47 Dextrose 50%-Water Inj 50 Ml Syringe IV 05/07/25 10:46 Q15MIN PRN BG <50 OR BG <70 & pt unresponsive Enoxaparin Sodium 40 mg 03/30/25 09:00 04/12/25 08:33 Enoxaparin Sod Inj 40 Mg/0.4 Ml Syringe SC 04/13/25 08:59 40 mg QDAY WALDEMAR Administration Gabapentin 300 mg 03/30/25 22:00 04/12/25 05:34 Gabapentin 300 Mg Capsule PO 04/29/25 21:59 300 mg TID WALDEMAR Administration Glucagon 1 mg 04/07/25 10:47 Glucagon Inj 1 Mg Vial IM Q15MIN PRN BG <70, and no IV access Guaifenesin 100 mg 03/30/25 17:18 04/06/25 08:27 Guaifenesin Syrup 200 Mg/10 Ml Udc PO 04/29/25 17:17 100 mg QID PRN Administration COUGH Protocol Lactulose 10 gm 04/10/25 09:00 04/12/25 08:33 Lactulose Syrup 20 Gm/30 Ml Udc PO 05/10/25 08:59 10 gm DAILY WALDEMAR Administration Protocol Methylprednisolone Sodium Succinate 40 mg 04/09/25 10:08 04/12/25 05:33 Methylprednisolone Sod Succ 40 Mg Vial IVP 04/16/25 10:07 40 mg TID WALDEMAR Administration Ondansetron HCl 4 mg 03/30/25 08:57 03/30/25 10:11 Ondansetron Inj 2 Mg/Ml Inj 2 Ml IVP 04/29/25 08:56 4 mg Q6H PRN Administration NAUSEA OR VOMITING Protocol Pantoprazole Sodium 40 mg 03/30/25 16:00 04/12/25 08:33 Pantoprazole 40 Mg Tablet PO 04/29/25 15:59 40 mg QDAY WALDEMAR Administration Polyethylene Glycol 17 gm 04/10/25 09:00 04/12/25 10:45 Polyethylene Glycol 17 Gm Packet PO 05/10/25 08:59 17 gm QDAY WALDEMAR Administration Sennosides 1 tab 04/10/25 09:00 04/12/25 08:33 Senna Tablet PO 05/10/25 08:59 1 tab QDAY WALDEMAR Administration Protocol Sodium Chloride 3 ml 03/30/25 06:30 Sodium Chloride Rt Marisa 0.9% 3 Ml Nebu INH 04/29/25 06:29 PRN PRN SOLN Nathan Carrasco is 75 yr female with PMH of HTN, HLD, depression, neuropathy presenting with chief complaint of shortness of breath worsening in the past 2 days. Presented to ED on 03/30/25. She had difficulty obtaining oxygen tank and once delivered was only using for short time due to issues with tubing. Patient admitted for AHRF 2/2 pulmonary fibrosis exacerbation. #AHRF 2/2 pulmonary fibrosis exacerbation #CAP SOB worsening with home pulse ox readings 75-80%. Stated that a few weeks ago patient went to [place] for evaluation by flux core welder who diagnosed her with pulmonary fibrosis. There was a delay in delivery for home oxygen. Finally received the tank after seeing PCP in [place]. Was delivered past Sunday however used for only a short time due to tubing issues. She acutely deteriorated and presented to ED requiring BiPAP. She denies any history of smoking or exposure to smoke. CT chest from 04/02 showed worsening fibrosis with severe overlaying pneumonia. Had goals of care discussion with patient and due to poor long-term prognosis. Stated that they will talk with family. Cocci serology negative. ?DuoNeb q4hr -- IV Ceftriaxone 1 g daily (03/30-04/07) ? IV Doxycycline 100 mg BID (03/30-04/07) ?IV methylprednisone 40 mg TID (03/30- ?Pantoprazole 40 mg p.o. daily -continue to wean oxygen q2hr -budesonide INH 0.5 BID - Monitor fluid status and plan for diuresis if overloaded #Pulmonary arterial hypertension #Cor pulmonale 2/[address] Caceres consulted who did bedside echo. Estimated EF to be around 60%. There is evidence of enlarged pulmonary arteries seen on CT. Echo also showed dilated right side of the heart. Complete echo results showed EF 70%, hypercontractility of LV, RV dilation, moderate PAH 50-55 mmHg, cor pulmonale secondary to lung disease. -continue management as above -Appreciate cardiology recs #Electrolytes abnormalities #Hyperkalemia-resovled -daily BMP #Hx hypertension #Hx hyperlipidemia #Hx depression #Hx neuropathy Resumed home meds: ?Escitalopram 20 mg daily ? Gabapentin 300 mg TID ?Atorvastatin 10 mg daily ? Holding BP medication as blood pressure is soft -Ativan 0.5mg x1 PRN for anxiety #NSTEMI, type II-resolved #Elevated lactic acid-resolved Health maintenance: Dispo: tele for [facility] FEN: regular DVT prophylaxis: Lovenox CODE STATUS: Full code Patient care was discussed with attending physician Dr. Erasmo Nino, PGY1 Attending Provider Attestation/Addendum I have examined the patient, reviewed labs and imaging findings, discussed the case with the resident(s), and reviewed entered orders. I agree with the plan of care as outlined in this note, with these additional summaries/recommendations: Patient seen at bedside. No acute overnight events. She reports she feels tired today because she did not sleep well last night. She still denies having a bowel movement and will increase bowel regimen. Patient remains on high flow nasal. She has been showing slow improvement over the last week although no significant improvement in 02 requirements in last 24 hours. We will continue steroids for acquired pulmonary fibrosis although little to no improvement. Ultimately our goal is to wean oxygen enough that patient could go home on hospice although this might not be obtainable and she is considering comfort care if no improvement. Acute hypoxic respiratory failure is multifactorial secondary to acquired pulmonary fibrosis, community-acquired pneumonia, pulmonary artery hypertension, and cor pulmonale. Patient has completed appropriate treatment course for pneumonia. Patient has been receiving breathing treatments and IV steroids for pulmonary fibrosis without improvement. Patient updated on the plan and in agreement. All questions answered to satisfaction. Please see residents note for additional details management. Dr. Erasmo MD
--- NOTE | 2025-04-12 20:04 | ESPR_ITS ---
RE: CLAUS ALVAREZ : 1950 DATE OF SERVICE: 04/12/2025 SUBJECTIVE: The patient is a 75-year-old with a history of hypertension, currently has severe hypoxic respiratory failure and interstitial pneumonia, making slow progress. She is still on 20 liters of oxygen with FIO2 of 75%, somewhat depressed, but she is still in a good mood. She does not complain of shortness of breath or chest pain as long as she is on oxygen. OBJECTIVE: Vital Signs: Blood pressure 124/79 mmHg, pulse 81, respirations 30, temperature 97, saturation 91% on high-flow oxygen 20 liters at 75% FIO2. Head: Atraumatic. Neck: Supple. Lungs: Decreased breath sounds. Basal crackles. Heart: S1, S2, regular. Abdomen: Thin and soft. Extremities: Mild edema. /RECTAL: Not performed. IMPRESSION: 1. Hypoxic respiratory failure secondary to interstitial pneumonia and lung disease. 2. Right heart failure, secondary to lung disease. RECOMMENDATIONS: Continue oxygen supplements and high-flow oxygen. Prognosis is still poor. COndition remains critical. DT: 18:07:02 TT: 20:04:00 Ref: [id number] - TID: [id number]
[2025-04-13] VITALS (13 sets, daily range): BP systolic 137–157; BP diastolic 58–81; PULSE 64–95; RESP 17–30; TEMP 35.9–36.4; O2SAT 91–100; BMI 24.2
[2025-04-13] MEDS: ALBUTEROL/IPRATROPIUM (Duoneb) RT SOL 3 ML NEBU INH ×6 (02:14→22:46)
[2025-04-13] MEDS: HYDROcodone/APAP 5/325 TABLET 1 TAB PO ×4 (03:00→21:20)
[2025-04-13] MEDS: GABAPENTIN 300 MG CAPSULE PO ×3 (05:33→21:32)
[2025-04-13 05:53] LABS: Basophils % (Auto) 0 % (0-2.5); Eosinophils % (Auto) 0 % (0-10); Hematocrit 38.3 % (36.0-46.0); Hemoglobin 12.5 g/dL (12.0-16.0); Immature Granulocytes % (Auto) 1 % (0-0); Immature Granulocytes Auto 0.13 Thou/mm3 (0.00-0.00); Lymphocytes # (Auto) 0.4 Thou/mm3 (1.0-4.8); Lymphocytes % (Auto) 3 % (10-50); Mean Corpuscular HGB Conc 32.6 g/dl (31.0-37.0); Mean Corpuscular Volume 92 fL (80-100); Monocytes # (Auto) 0.5 Thou/mm3 (0.0-0.8); Monocytes % (Auto) 4 % (0-12); Neutrophils # (Auto) 11.7 Thou/mm3 (1.8-7.7); Neutrophils % (Auto) 92 % (37-80); Nucleated Red Blood Cell % 0 /100 WBC (0); Platelet Count 191 Thou/mm3 (140-440); RDW Standard Deviation 48.3 fL (36.4-46.3); Red Blood Count 4.17 Miln/mm3 (4.00-5.20); White Blood Count 12.8 Thou/mm3 (3.6-11.0)
[2025-04-13 06:19] LABS: Alanine Aminotransferase 77 U/L (10-49); Albumin, Serum 3.2 gm/dL (3.4-4.8); Alkaline Phosphatase 86 U/L (46-116); Anion Gap 8 (7-16); Aspartate Amino Transferase 24 U/L (0-34); BUN/Creatinine Ratio 45 Ratio (12-20); Bilirubin,Total 0.5 mg/dL (0.3-1.2); Blood Urea Nitrogen 27 mg/dL (9-23); Calcium 8.2 mg/dL (8.3-10.6); Calcium (Corrected) 8.8 mg/dL (8.5-10.1); Carbon Dioxide 30.3 mMol/L (20.0-31.0); Chloride 102 mMol/L (98-107); Creatinine (Component) 0.6 mg/dL (0.6-1.3); Estimated Creatinine Clearance 67.4 mL/min (>60); Globulin 1.6 gm/dL (2.3-3.5); Glucose 166 mg/dL (74-106); Osmolality,Calculated 288 (275-295); Potassium 5.5 mMol/L (3.4-5.1); Sodium 140 mMol/L (136-145); Total Protein 4.8 gm/dL (5.7-8.2); eGFR > 60 See Note
[2025-04-13] MEDS: BUDESONIDE RT 0.25 MG/2 ML NEBU INH ×2 (06:22→18:20)
[2025-04-13] MEDS: INSULIN HUM REGULAR 1 UNIT/0.01 ML (PER UNIT) 5 UNIT IV (08:39)
[2025-04-13] MEDS: DEXTROSE 50%-WATER INJ 50 ML SYRINGE 25 ML IVP (08:39)
[2025-04-13] MEDS: ATORVASTATIN CALCIUM 10 MG TABLET PO (08:40)
[2025-04-13] MEDS: SENNA TABLET 1 TAB PO (08:40)
[2025-04-13] MEDS: CITALOPRAM 20 MG TABLET PO (08:40)
[2025-04-13] MEDS: PANTOPRAZOLE 40 MG TABLET PO (08:40)
[2025-04-13] MEDS: LACTULOSE SYRUP 20 GM/30 ML UDC PO ×2 (08:40→21:32)
[2025-04-13] MEDS: POLYETHYLENE GLYCOL 17 GM PACKET PO (08:40)
[2025-04-13] MEDS: ENOXAPARIN SOD INJ 40 MG/0.4 ML SYRINGE SC (10:41)
[2025-04-13 11:18] LABS: Potassium 4.7 mMol/L (3.4-5.1)
--- NOTE | 2025-04-13 14:19 | ESPR_ITS ---
Documentation for date of: 04/13/25 Subjective Subjective Interval history: Patient examined at bedside. No events overnight, patient complains of feeling more tired. Still has not had BM. Will increase bowel regimen. She is saturating 92% O2 on 25 L HFNC at 78% FiO2 at bedside. Potassium 5.5--repeat BMP 4.7 after 5units regular insulin. Steroids to 40mg TID and budesonide INH in setting of her pulmonary fibrosis. Encouraged to use bedside spirometry. Goal oxygenation 92-94%. network services project manager team will look into possible LTAC options as she'll need management of her HFNC. Family is aware of poor [facility] prognosis and updated daily. Questions answered to full. Exam Vital Signs Temp Pulse Resp BP Pulse Ox O2 Del Method O2 Flow Rate 97.0 F 82 22 H 157/79 H 99 High Flow Nasal Cannula 20 04/13/25 08:00 04/13/25 10:19 04/13/25 10:19 04/13/25 08:00 04/13/25 10:19 04/13/25 08:00 04/13/25 10:19 FiO2 78 04/13/25 10:19 Narrative Exam General: Elderly female, on HFNC, somewhat anxious, cooperative on highflow HEENT: NCAT, No JVD noted. Mucosa dry. Pupils are equal and reactive to light bilaterally Cardiovascular: Normal S1 and S2. Regular rate and rhythm. Respiratory: Using accessory muscles, breath sound diminished in both sharma, no crackles, on high flow Abdomen: Soft, nontender, not distended, normal bowel sounds. Skin: Warm to touch, dry, no rashes noted Musculoskeletal: No gross injuries. Able to move all 4 extremities. No pitting edema Neuro: Alert and oriented x3. No focal neuro deficits. Psych: Normal affect and mood Objective Labs 04/13/25 05:05 04/13/25 10:32 Labs: Laboratory Results - last 24 hr 04/13/25 04/13/25 05:05 10:32 WBC 12.8 H RBC 4.17 Hgb 12.5 Hct 38.3 MCV 92 MCH 30.0 MCHC 32.6 RDW Std Deviation 48.3 H Plt Count 191 D Neut % (Auto) 92 H Lymph % (Auto) 3 L [place] % (Auto) 4 Eos % (Auto) 0 Baso % (Auto) 0 Neut # (Auto) 11.7 H Lymph # (Auto) 0.4 L [place] # (Auto) 0.5 Eos # (Auto) 0.0 Baso # (Auto) 0.0 Immature Gran # (Auto) 0.13 H Absolute Nucleated RBC 0.00 Immature Gran % 1 H Nucleated RBC % 0 Sodium 140 Potassium 5.5 H D 4.7 D Chloride 102 Carbon Dioxide 30.3 Anion Gap 8 BUN 27 H Creatinine 0.6 Estim Creat Clear Calc 67.4 eGFR > 60 BUN/Creatinine Ratio 45 H Glucose 166 H Calculated Osmolality 288 Calcium 8.2 L Corrected Calcium 8.8 Total Bilirubin 0.5 AST 24 ALT 77 H Alkaline Phosphatase 86 Total Protein 4.8 L Albumin 3.2 L Globulin 1.6 L Albumin/Globulin Ratio 2.0 ABG Interpretation ABG results: 03/30/25 04/03/25 08:27 08:32 ABG pH 7.34 L 7.45 ABG pCO2 33 42 ABG pO2 97 91 ABG HCO3 18 L 29 H ABG O2 Saturation 97 98 ABG Base Excess -7 L 5 H Quality Measures Quality Measures none Advance care planning discussed with:: patient Assessment & Plan Assessment Current Active Medications: Generic Name Dose Route Start Last Admin Trade Name Freq PRN Reason Stop Dose Admin Acetaminophen 650 mg 03/30/25 08:57 Acetaminophen 325 Mg Tablet PO 04/29/25 08:56 Q6H PRN Fever >101.5 Hydrocodone Bitart/Acetaminophen 1 tab 04/09/25 18:02 04/13/25 09:00 Hydrocodone/Apap 5/325 Tablet PO 04/14/25 18:01 1 tab Q6HR PRN Administration PAIN Albuterol/Ipratropium 3 ml 03/30/25 11:00 04/13/25 10:17 Albuterol/Ipratropium (Duoneb) Rt Marisa 3 Ml Nebu INH 04/29/25 10:59 3 ml Q4HRRT WALDEMAR Administration Atorvastatin Calcium 10 mg 03/31/25 09:00 04/13/25 08:40 Atorvastatin Calcium 10 Mg Tablet PO 04/30/25 08:59 10 mg QDAY WALDEMAR Administration Budesonide 0.25 mg 04/09/25 10:15 04/13/25 06:22 Budesonide Rt 0.25 Mg/2 Ml Nebu INH 05/09/25 10:14 0.25 mg BIDRT WALDEMAR Administration Citalopram Hydrobromide 20 mg 03/31/25 09:00 04/13/25 08:40 Citalopram 20 Mg Tablet PO 04/30/25 08:59 20 mg QDAY WALDEMAR Administration Dextrose 25 ml 04/13/25 08:13 Dextrose 50%-Water Inj 50 Ml Syringe IV 05/13/25 08:12 Q15MIN PRN BG 50-70 responsive npo pt Dextrose 50 ml 04/13/25 08:13 Dextrose 50%-Water Inj 50 Ml Syringe IV 05/13/25 08:12 Q15MIN PRN BG <50 OR BG <70 & pt unresponsive Enoxaparin Sodium 40 mg 04/13/25 09:15 04/13/25 10:41 Enoxaparin Sod Inj 40 Mg/0.4 Ml Syringe SC 04/27/25 09:14 40 mg QDAY WALDEMAR Administration Gabapentin 300 mg 03/30/25 22:00 04/13/25 13:46 Gabapentin 300 Mg Capsule PO 04/29/25 21:59 300 mg TID WALDEMAR Administration Glucagon 1 mg 04/13/25 08:12 Glucagon Inj 1 Mg Vial IM Q15MIN PRN BG <70, and no IV access Guaifenesin 100 mg 03/30/25 17:18 04/06/25 08:27 Guaifenesin Syrup 200 Mg/10 Ml Udc PO 04/29/25 17:17 100 mg QID PRN Administration COUGH Protocol Lactulose 20 gm 04/13/25 08:30 04/13/25 10:42 Lactulose Syrup 20 Gm/30 Ml Udc PO 05/13/25 08:29 Not Given BID WALDEMAR Protocol Ondansetron HCl 4 mg 03/30/25 08:57 03/30/25 10:11 Ondansetron Inj 2 Mg/Ml Inj 2 Ml IVP 04/29/25 08:56 4 mg Q6H PRN Administration NAUSEA OR VOMITING Protocol Pantoprazole Sodium 40 mg 03/30/25 16:00 04/13/25 08:40 Pantoprazole 40 Mg Tablet PO 04/29/25 15:59 40 mg QDAY WALDEMAR Administration Polyethylene Glycol 17 gm 04/10/25 09:00 04/13/25 08:40 Polyethylene Glycol 17 Gm Packet PO 05/10/25 08:59 17 gm QDAY WALDEMAR Administration Prednisone 40 mg 04/14/25 09:00 Prednisone 20 Mg Tablet PO 05/14/25 08:59 QDAY [facility] Sennosides 1 tab 04/10/25 09:00 04/13/25 08:40 Senna Tablet PO 05/10/25 08:59 1 tab QDAY [facility] Administration Protocol Sodium Chloride 3 ml 03/30/25 06:30 Sodium Chloride Rt Marisa 0.9% 3 Ml Nebu INH 04/29/25 06:29 PRN PRN SOLN Nathan Bebe Carrasco is 75 yr female with PMH of HTN, HLD, depression, neuropathy presenting with chief complaint of shortness of breath worsening in the past 2 days. Presented to ED on 03/30/25. She had difficulty obtaining oxygen tank and once delivered was only using for short time due to issues with tubing. Patient admitted for AHRF 2/2 pulmonary fibrosis exacerbation. #AHRF 2/2 pulmonary fibrosis exacerbation #CAP SOB worsening with home pulse ox readings 75-80%. Stated that a few weeks ago patient went to [place] for evaluation by vending machine host/hostess who diagnosed her with pulmonary fibrosis. There was a delay in delivery for home oxygen. Finally received the tank after seeing PCP in [place]. Was delivered past Sunday however used for only a short time due to tubing issues. She acutely deteriorated and presented to ED requiring BiPAP. She denies any history of smoking or exposure to smoke. CT chest from 04/02 showed worsening fibrosis with severe overlaying pneumonia. Had goals of care discussion with patient and due to poor long-term prognosis. Stated that they will talk with family. Cocci serology negative. ?DuoNeb q4hr -- IV Ceftriaxone 1 g daily (03/30-04/07) ? IV Doxycycline 100 mg BID (03/30-04/07) ?IV methylprednisone 40 mg TID (03/30- ?Pantoprazole 40 mg p.o. daily -continue to wean oxygen q2hr -budesonide INH 0.5 BID - Monitor fluid status and plan for diuresis if overloaded #Pulmonary arterial hypertension #Cor pulmonale 2/[address] Caceres consulted who did bedside echo. Estimated EF to be around 60%. There is evidence of enlarged pulmonary arteries seen on CT. Echo also showed dilated right side of the heart. Complete echo results showed EF 70%, hypercontractility of LV, RV dilation, moderate PAH 50-55 mmHg, cor pulmonale secondary to lung disease. -continue management as above -Appreciate cardiology recs #Electrolytes abnormalities #Hyperkalemia -daily BMP #Hypertension #Hyperlipidemia #Depression #Neuropathy Resumed home meds: ?Escitalopram 20 mg daily ? Gabapentin 300 mg TID ?Atorvastatin 10 mg daily ? Holding BP medication as blood pressure is soft -Ativan 0.5mg x1 PRN for anxiety #NSTEMI, type II-resolved #Elevated lactic acid-resolved Health maintenance: Dispo: tele for AHRF on HFNC FEN: regular DVT prophylaxis: Lovenox CODE STATUS: Full code Patient care was discussed with attending physician Dr. Zimmerman. Ruchi Nino, PGY1 Attending Provider Attestation/Addendum I have examined the patient, reviewed labs and imaging findings, discussed the case with the resident(s), and reviewed entered orders. I agree with the plan of care as outlined in this note, with these additional summaries/recommendations: Patient seen at bedside. No acute overnight events. Patient remains on high flow nasal cannula. She has been hospitalized for 14 days thus far without significant improvement in O2 requirements. Goals of care was held with the patient including continuing full treatment, initiating comfort care, or exploring LTAC placement. Patient does not appear committed to any option at this point and would like more time to think. In the meantime we will discuss with medical social consultant about possible LTAC placement. We will continue steroids for acquired pulmonary fibrosis although little to no improvement on high-dose IV steroids and thus we will wean to prednisone today.. Ultimately our goal is to wean oxygen enough that patient could go home on hospice although this might not be obtainable. Acute hypoxic respiratory failure is multifactorial secondary to acquired pulmonary fibrosis, community-acquired pneumonia, pulmonary artery hypertension, and cor pulmonale. Patient has completed appropriate treatment course for pneumonia. Patient has been receiving breathing treatments and IV steroids for pulmonary fibrosis without improvement. Patient updated on the plan and in agreement. All questions answered to satisfaction. Please see residents note for additional details management. Prognosis unfortunately poor. Dr. Erasmo MD
--- NOTE | 2025-04-13 17:10 | PC.SS ---
Rounding Note: Patient remains on high flow nasal cannula between 20-25L. Plan is to discuss LTAC.
[2025-04-13] MEDS: NALOXEGOL OXALATE 25 MG TABLET (NON-FORMULARY) PO (22:29)
[2025-04-14] VITALS (14 sets, daily range): BP systolic 123–148; BP diastolic 76–88; PULSE 65–92; RESP 16–25; TEMP 36.1–36.4; O2SAT 93–99; BMI 24.2
[2025-04-14] MEDS: ALBUTEROL/IPRATROPIUM (Duoneb) RT SOL 3 ML NEBU INH ×6 (02:25→22:17)
[2025-04-14] MEDS: HYDROcodone/APAP 5/325 TABLET 1 TAB PO (04:27)
[2025-04-14 05:34] LABS: Basophils % (Auto) 0 % (0-2.5); Eosinophils # (Auto) 0.1 Thou/mm3 (0.0-0.5); Eosinophils % (Auto) 1 % (0-10); Hematocrit 38.6 % (36.0-46.0); Immature Granulocytes % (Auto) 1 % (0-0); Immature Granulocytes Auto 0.13 Thou/mm3 (0.00-0.00); Lymphocytes # (Auto) 0.8 Thou/mm3 (1.0-4.8); Lymphocytes % (Auto) 5 % (10-50); Mean Corpuscular HGB Conc 33.7 g/dl (31.0-37.0); Mean Corpuscular Hemoglobin 30.9 pg (25.0-35.0); Mean Corpuscular Volume 92 fL (80-100); Monocytes # (Auto) 1.1 Thou/mm3 (0.0-0.8); Monocytes % (Auto) 6 % (0-12); Neutrophils # (Auto) 14.5 Thou/mm3 (1.8-7.7); Neutrophils % (Auto) 87 % (37-80); Nucleated Red Blood Cell % 0 /100 WBC (0); Platelet Count 173 Thou/mm3 (140-440); RDW Standard Deviation 48.1 fL (36.4-46.3); Red Blood Count 4.21 Miln/mm3 (4.00-5.20); White Blood Count 16.6 Thou/mm3 (3.6-11.0)
[2025-04-14 05:49] LABS: Anion Gap 6 (7-16); BUN/Creatinine Ratio 33 Ratio (12-20); Blood Urea Nitrogen 20 mg/dL (9-23); Carbon Dioxide 30.2 mMol/L (20.0-31.0); Chloride 103 mMol/L (98-107); Creatinine (Component) 0.6 mg/dL (0.6-1.3); Glucose 128 mg/dL (74-106); Magnesium 2.3 mg/dL (1.6-2.6); Osmolality,Calculated 282 (275-295); Potassium 4.5 mMol/L (3.4-5.1); Sodium 139 mMol/L (136-145); eGFR > 60 See Note
[2025-04-14] MEDS: GABAPENTIN 300 MG CAPSULE PO ×3 (06:24→21:00)
[2025-04-14] MEDS: BUDESONIDE RT 0.25 MG/2 ML NEBU INH ×2 (06:34→18:23)
--- NOTE | 2025-04-14 08:48 | XR_ITS ---
Examination: Abdomen AP single view Technique: AP portable supine abdomen, single view Exam date and time: 08/14/2025 0914 hours INDICATIONS: Constipation beginning 2 weeks ago FINDINGS: Large amounts of stool throughout the colon including rectum No obstruction IMPRESSION: Large amounts of stool throughout the entire colon
[2025-04-14] MEDS: POLYETHYLENE GLYCOL 17 GM PACKET PO (09:01)
[2025-04-14] MEDS: ENOXAPARIN SOD INJ 40 MG/0.4 ML SYRINGE SC (09:02)
[2025-04-14] MEDS: LACTULOSE SYRUP 20 GM/30 ML UDC PO (09:02)
[2025-04-14] MEDS: CITALOPRAM 20 MG TABLET PO (09:03)
[2025-04-14] MEDS: ATORVASTATIN CALCIUM 10 MG TABLET PO (09:03)
[2025-04-14] MEDS: predniSONE 20 MG TABLET 40 MG PO (09:03)
[2025-04-14] MEDS: SENNA TABLET 1 TAB PO (09:03)
[2025-04-14] MEDS: PANTOPRAZOLE 40 MG TABLET PO (09:03)
--- NOTE | 2025-04-14 09:58 | PC.SS ---
Update: Plan to discuss with patient's family LTAC placement vs comfort care.
--- NOTE | 2025-04-14 14:13 | PD.RESPRO ---
Documentation for date of: 04/14/25 Subjective Subjective Interval history: Patient examined at bedside. No events overnight, patient complains of feeling more tired. Still has not had BM and now refusing to take bowel regimen. Gave 0.5mg ativan x1 for her anxiety today. Oxygen requirements worsened today. She is saturating 96% O2 on 30 L HFNC at 85% FiO2 at bedside. Labs show up trending WBC at 16, CMP unremarkable. KUB showed large amounts of stool through entired colon. But she is refusing to take laxatives now. Steroids to 40mg TID and budesonide INH in setting of her pulmonary fibrosis. Encouraged to use bedside spirometry. Goal oxygenation 92-94%. client services administrator team looked into possible LTAC placement. However, facility stated that they are unable to accommodate transfer while patient remains on high flow nasal cannula. Will speak with vp digital marketing social media and crm team and family about comfort care. Family is aware of poor continuous churn buttermaker prognosis and updated daily. Questions answered to full. Exam Vital Signs Temp Pulse Resp BP Pulse Ox O2 Del Method O2 Flow Rate 97.6 F 88 18 143/76 H 95 High Flow Nasal Cannula 30 04/14/25 08:00 04/14/25 14:01 04/14/25 14:01 04/14/25 08:00 04/14/25 14:01 04/14/25 08:00 04/14/25 14:01 FiO2 85 04/14/25 14:01 Narrative Exam General: Elderly female, on HFNC, anxious, cooperative on highflow, appears tired today HEENT: NCAT, No JVD noted. Mucosa dry. Pupils are equal and reactive to light bilaterally Cardiovascular: Normal S1 and S2. Regular rate and rhythm. Respiratory: Using accessory muscles, breath sound diminished in both sharma, no crackles, on high flow Abdomen: Soft, nontender, not distended, normal bowel sounds. Skin: Warm to touch, dry, no rashes noted Musculoskeletal: No gross injuries. Able to move all 4 extremities. +1 pitting bettie R>L Neuro: Alert and oriented x3. No focal neuro deficits. Psych: Normal affect and mood Objective Labs 04/14/25 04:28 04/14/25 04:28 Labs: Laboratory Results - last 24 hr 04/14/25 04:28 WBC 16.6 H RBC 4.21 Hgb 13.0 Hct 38.6 MCV 92 MCH 30.9 MCHC 33.7 RDW Std Deviation 48.1 H Plt Count 173 Neut % (Auto) 87 H Lymph % (Auto) 5 L [place] % (Auto) 6 Eos % (Auto) 1 Baso % (Auto) 0 Neut # (Auto) 14.5 H Lymph # (Auto) 0.8 L [place] # (Auto) 1.1 H Eos # (Auto) 0.1 Baso # (Auto) 0.0 Immature Gran # (Auto) 0.13 H Absolute Nucleated RBC 0.00 Immature Gran % 1 H Nucleated RBC % 0 Sodium 139 Potassium 4.5 Chloride 103 Carbon Dioxide 30.2 Anion Gap 6 L BUN 20 Creatinine 0.6 Estim Creat Clear Calc 68.0 eGFR > 60 BUN/Creatinine Ratio 33 H Glucose 128 H Calculated Osmolality 282 Calcium 8.0 L Magnesium 2.3 ABG Interpretation ABG results: 03/30/25 04/03/25 08:27 08:32 ABG pH 7.34 L 7.45 ABG pCO2 33 42 ABG pO2 97 91 ABG HCO3 18 L 29 H ABG O2 Saturation 97 98 ABG Base Excess -7 L 5 H Quality Measures Quality Measures none Advance care planning discussed with:: patient Assessment & Plan Assessment Current Active Medications: Generic Name Dose Route Start Last Admin Trade Name Freq PRN Reason Stop Dose Admin Acetaminophen 650 mg 03/30/25 08:57 Acetaminophen 325 Mg Tablet PO 04/29/25 08:56 Q6H PRN Fever >101.5 Hydrocodone Bitart/Acetaminophen 1 tab 04/09/25 18:02 04/14/25 04:27 Hydrocodone/Apap 5/325 Tablet PO 04/14/25 18:01 1 tab Q6HR PRN Administration PAIN Albuterol/Ipratropium 3 ml 03/30/25 11:00 04/14/25 14:00 Albuterol/Ipratropium (Duoneb) Rt Marisa 3 Ml Nebu INH 04/29/25 10:59 3 ml Q4HRRT WALDEMAR Administration Atorvastatin Calcium 10 mg 03/31/25 09:00 04/14/25 09:03 Atorvastatin Calcium 10 Mg Tablet PO 04/30/25 08:59 10 mg QDAY WALDEMAR Administration Budesonide 0.25 mg 04/09/25 10:15 04/14/25 06:34 Budesonide Rt 0.25 Mg/2 Ml Nebu INH 05/09/25 10:14 0.25 mg BIDRT WALDEMAR Administration Citalopram Hydrobromide 20 mg 03/31/25 09:00 04/14/25 09:03 Citalopram 20 Mg Tablet PO 04/30/25 08:59 20 mg QDAY WALDEMAR Administration Dextrose 25 ml 04/13/25 08:13 Dextrose 50%-Water Inj 50 Ml Syringe IV 05/13/25 08:12 Q15MIN PRN BG 50-70 responsive npo pt Dextrose 50 ml 04/13/25 08:13 Dextrose 50%-Water Inj 50 Ml Syringe IV 05/13/25 08:12 Q15MIN PRN BG <50 OR BG <70 & pt unresponsive Enoxaparin Sodium 40 mg 04/13/25 09:15 04/14/25 09:02 Enoxaparin Sod Inj 40 Mg/0.4 Ml Syringe SC 04/27/25 09:14 40 mg QDAY WALDEMAR Administration Gabapentin 300 mg 03/30/25 22:00 04/14/25 06:24 Gabapentin 300 Mg Capsule PO 04/29/25 21:59 300 mg TID WALDEMAR Administration Glucagon 1 mg 04/13/25 08:12 Glucagon Inj 1 Mg Vial IM Q15MIN PRN BG <70, and no IV access Guaifenesin 100 mg 03/30/25 17:18 04/06/25 08:27 Guaifenesin Syrup 200 Mg/10 Ml Udc PO 04/29/25 17:17 100 mg QID PRN Administration COUGH Protocol Lactulose 20 gm 04/13/25 08:30 04/14/25 09:02 Lactulose Syrup 20 Gm/30 Ml Udc PO 05/13/25 08:29 20 gm BID WALDEMAR Administration Protocol Ondansetron HCl 4 mg 03/30/25 08:57 03/30/25 10:11 Ondansetron Inj 2 Mg/Ml Inj 2 Ml IVP 04/29/25 08:56 4 mg Q6H PRN Administration NAUSEA OR VOMITING Protocol Pantoprazole Sodium 40 mg 03/30/25 16:00 04/14/25 09:03 Pantoprazole 40 Mg Tablet PO 04/29/25 15:59 40 mg QDAY WALDEMAR Administration Polyethylene Glycol 17 gm 04/10/25 09:00 04/14/25 09:01 Polyethylene Glycol 17 Gm Packet PO 05/10/25 08:59 17 gm QDAY WALDEMAR Administration Prednisone 40 mg 04/14/25 09:00 04/14/25 09:03 Prednisone 20 Mg Tablet PO 05/14/25 08:59 40 mg QDAY WALDEMAR Administration Sennosides 1 tab 04/10/25 09:00 04/14/25 09:03 Senna Tablet PO 05/10/25 08:59 1 tab QDAY WALDEMAR Administration Protocol Sodium Chloride 3 ml 03/30/25 06:30 Sodium Chloride Rt Marisa 0.9% 3 Ml Nebu INH 04/29/25 06:29 PRN PRN SOLN Nathan Carrasco is 75 yr female with PMH of HTN, HLD, depression, neuropathy presenting with chief complaint of shortness of breath worsening in the past 2 days. Presented to ED on 03/30/25. She had difficulty obtaining oxygen tank and once delivered was only using for short time due to issues with tubing. Patient admitted for AHRF 2/2 pulmonary fibrosis exacerbation. #AHRF 2/2 pulmonary fibrosis exacerbation #CAP SOB worsening with home pulse ox readings 75-80%. Stated that a few weeks ago patient went to [place] for evaluation by digital controls technical officer who diagnosed her with pulmonary fibrosis. There was a delay in delivery for home oxygen. Finally received the tank after seeing PCP in [place]. Was delivered past Sunday however used for only a short time due to tubing issues. She acutely deteriorated and presented to ED requiring BiPAP. She denies any history of smoking or exposure to smoke. CT chest from 04/02 showed worsening fibrosis with severe overlaying pneumonia. Had goals of care discussion with patient and due to poor long-term prognosis. Stated that they will talk with family. Cocci serology negative. ?DuoNeb q4hr -- IV Ceftriaxone 1 g daily (03/30-04/07) ? IV Doxycycline 100 mg BID (03/30-04/07) ?IV methylprednisone 40 mg TID (03/30- ?Pantoprazole 40 mg p.o. daily -continue to wean oxygen q2hr -budesonide INH 0.5 BID - Monitor fluid status and plan for diuresis if overloaded #Pulmonary arterial hypertension #Cor pulmonale 2/[address] Caceres consulted who did bedside echo. Estimated EF to be around 60%. There is evidence of enlarged pulmonary arteries seen on CT. Echo also showed dilated right side of the heart. Complete echo results showed EF 70%, hypercontractility of LV, RV dilation, moderate PAH 50-55 mmHg, cor pulmonale secondary to lung disease. -continue management as above -Appreciate cardiology recs #Electrolytes abnormalities #Hyperkalemia -daily BMP #Hypertension #Hyperlipidemia #Depression #Neuropathy Resumed home meds: ?Escitalopram 20 mg daily ? Gabapentin 300 mg TID ?Atorvastatin 10 mg daily ? Holding BP medication as blood pressure is soft -Ativan 0.5mg x1 PRN for anxiety #NSTEMI, type II-resolved #Elevated lactic acid-resolved Health maintenance: Dispo: tele for AHRF on HFNC, possible comfort care. FEN: regular DVT prophylaxis: Lovenox CODE STATUS: Full code Patient care was discussed with attending physician Dr. Sims. Ruchi Nino, PGY1 Attending Provider Attestation/Addendum I attest that I was physically present for the evaluation, physical examination, lab and imaging review of the patient with the residents. I discussed the case with the residents and agree with the findings and plans of care as documented above. At bedside today, patient states she feels a little bit more tired compared to yesterday.? Continues to be on high flow nasal cannula, settings of point of slightly to 30 L 85 FiO2.? Remained tachypneic at bedside in 20s.? Lab results show increasing WBC from 12.8-16.6, likely secondary to steroids.? Chemistry panel is nonconcerning.? Steroid further taper to 40 mg of prednisone daily.? Patient has not have bowel movement, obtained x-ray KUB, shows large amount of stool throughout the entire colon.? We will continue with the bowel regimen.? Plan to rediscuss goals of care with family, including LTAC placement, comfort care measures. Prognosis continues to be guarded. Kami Sims MD
[2025-04-14] MEDS: LORazepam 0.5 MG TABLET PO ×2 (14:16→20:55)
[2025-04-15] VITALS (15 sets, daily range): BP systolic 117–149; BP diastolic 75–92; PULSE 70–113; RESP 19–30; TEMP 36.1–36.4; O2SAT 92–113; BMI 24.2
--- NOTE | 2025-04-15 00:12 | ESPR_ITS ---
RE: CLAUS ALVAREZ : 1950 DATE OF SERVICE: 04/14/2025 The patient is a 75-year-old lady with a history of interstitial fibrosis, who came to the hospital with interstitial lung disease, pneumonia and severe hypoxemia, requiring high flow oxygen. Continues to require high flow oxygen therapy. Not improving much, but she is definitely better than when she came, but not that much. She is in better spirit. Does not complain of any chest pain or shortness of breath. She is saturating 96% on high flow oxygen. White count slightly trended up today. She is still getting high-dose steroid therapy, inhaler therapy in addition. The patient is still managing reasonably well, but long-term progress appears to be uncertain because she is not improving. PHYSICAL EXAMINATION: Vital Signs: On today's exam, blood pressure is 140/76, pulse rate is 88, respirations 16, temperature normal. Neck: Supple. No JVD. Chest: Decreased breath sounds. No rales or rhonchi. Bilateral crackles. Heart: S1, S2 regular. Tachycardia. Abdomen: Thin and soft. Extremities: No edema. IMPRESSION/ASSESSMENT: 1. Severe hypoxic respiratory failure secondary to interstitial lung disease, fibrosis with superimposed pneumonia. Not improving. 2. Heart failure with preserved ejection fraction. 3. 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 RECOMMENDATIONS: Continue medical management, high flow oxygen supplement. Prognosis is poor. Condition remains stable, but not improving, but requiring high-flow oxygen, which is a concern. DT: 23:43:06 TT: 00:10:00 Ref: [id number] - TID: [id number]
[2025-04-15] MEDS: ALBUTEROL/IPRATROPIUM (Duoneb) RT SOL 3 ML NEBU INH ×7 (02:39→22:28)
[2025-04-15] MEDS: GABAPENTIN 300 MG CAPSULE PO ×3 (05:29→21:19)
[2025-04-15 05:46] LABS: Basophils % (Auto) 0 % (0-2.5); Eosinophils # (Auto) 0.1 Thou/mm3 (0.0-0.5); Eosinophils % (Auto) 1 % (0-10); Hematocrit 38.4 % (36.0-46.0); Hemoglobin 12.8 g/dL (12.0-16.0); Immature Granulocytes % (Auto) 1 % (0-0); Lymphocytes # (Auto) 0.8 Thou/mm3 (1.0-4.8); Lymphocytes % (Auto) 7 % (10-50); Mean Corpuscular HGB Conc 33.3 g/dl (31.0-37.0); Mean Corpuscular Hemoglobin 30.8 pg (25.0-35.0); Mean Corpuscular Volume 92 fL (80-100); Monocytes # (Auto) 0.9 Thou/mm3 (0.0-0.8); Monocytes % (Auto) 7 % (0-12); Neutrophils # (Auto) 10.4 Thou/mm3 (1.8-7.7); Neutrophils % (Auto) 85 % (37-80); Nucleated Red Blood Cell % 0 /100 WBC (0); Platelet Count 106 Thou/mm3 (140-440); RDW Standard Deviation 48.6 fL (36.4-46.3); Red Blood Count 4.16 Miln/mm3 (4.00-5.20); White Blood Count 12.3 Thou/mm3 (3.6-11.0)
[2025-04-15 06:05] LABS: Alanine Aminotransferase 60 U/L (10-49); Albumin/Globulin Ratio 1.9 (1.2-2.2); Alkaline Phosphatase 82 U/L (46-116); Anion Gap 8 (7-16); Aspartate Amino Transferase 27 U/L (0-34); BUN/Creatinine Ratio 32 Ratio (12-20); Bilirubin,Total 0.7 mg/dL (0.3-1.2); Blood Urea Nitrogen 16 mg/dL (9-23); Calcium (Corrected) 8.8 mg/dL (8.5-10.1); Chloride 101 mMol/L (98-107); Creatinine (Component) 0.5 mg/dL (0.6-1.3); Estimated Creatinine Clearance 81.6 mL/min (>60); Globulin 1.6 gm/dL (2.3-3.5); Glucose 89 mg/dL (74-106); Osmolality,Calculated 274 (275-295); Potassium 4.6 mMol/L (3.4-5.1); Sodium 137 mMol/L (136-145); Total Protein 4.6 gm/dL (5.7-8.2); eGFR > 60 See Note
[2025-04-15] MEDS: BUDESONIDE RT 0.25 MG/2 ML NEBU INH ×2 (06:11→18:32)
[2025-04-15] MEDS: ATORVASTATIN CALCIUM 10 MG TABLET PO (08:00)
[2025-04-15] MEDS: CITALOPRAM 20 MG TABLET PO (08:00)
[2025-04-15] MEDS: LACTULOSE SYRUP 20 GM/30 ML UDC PO (08:00)
[2025-04-15] MEDS: PANTOPRAZOLE 40 MG TABLET PO (08:01)
[2025-04-15] MEDS: POLYETHYLENE GLYCOL 17 GM PACKET PO (08:01)
[2025-04-15] MEDS: SENNA TABLET 1 TAB PO (08:01)
[2025-04-15] MEDS: ENOXAPARIN SOD INJ 40 MG/0.4 ML SYRINGE SC (08:01)
--- NOTE | 2025-04-15 10:06 | PD.RESPRO ---
Documentation for date of: 04/15/25 Subjective Subjective Interval history: Patient examined at bedside. No events overnight, patient complains of feeling more tired. Still has not had BM. Today she is emotional and having a hard time coping. Nursing called laundry tech services. No significant change in oxygen requirements. She is saturating 96% O2 on L HFNC at 85% FiO2 at bedside. Labs show improved leukocytosis WBC at 12, CMP unremarkable. KUB showed large amounts of stool through entired colon. Will consider giving enema again if patient agrees. Steroids 40mg TID and budesonide INH in setting of her pulmonary fibrosis. Encouraged to use bedside spirometry. Goal oxygenation 92-94%. enterprise services manager team looked into possible LTAC placement. However, facility stated that they are unable to accommodate transfer while patient remains on high flow nasal cannula. Will speak with secondary social studies teacher team and family about comfort care. Family is aware of poor long-term prognosis and updated daily. Questions answered to full. Exam Vital Signs Temp Pulse Resp BP Pulse Ox O2 Del Method O2 Flow Rate 97.4 F 77 19 145/75 H 94 L High Flow Nasal Cannula 30 04/15/25 07:59 04/15/25 08:00 04/15/25 07:59 04/15/25 07:59 04/15/25 07:59 04/15/25 07:59 04/15/25 07:59 FiO2 80 04/15/25 07:59 Narrative Exam General: Elderly female, on HFNC, anxious, cooperative on highflow, tearful HEENT: NCAT, No JVD noted. Mucosa dry. Pupils are equal and reactive to light bilaterally Cardiovascular: Normal S1 and S2. Regular rate and rhythm. Respiratory: Using accessory muscles, breath sound diminished in both sharma, no crackles, on high flow Abdomen: Soft, nontender, not distended, normal bowel sounds. Skin: Warm to touch, dry, no rashes noted Musculoskeletal: No gross injuries. Able to move all 4 extremities. +1 pitting bettie R>L Neuro: Alert and oriented x3. No focal neuro deficits. Psych: sad, anxious Objective Labs 04/16/25 04:55 04/16/25 04:55 Labs: Laboratory Results - last 24 hr 04/15/25 04:10 WBC 12.3 H RBC 4.16 Hgb 12.8 Hct 38.4 MCV 92 MCH 30.8 MCHC 33.3 RDW Std Deviation 48.6 H Plt Count 106 L D Neut % (Auto) 85 H Lymph % (Auto) 7 L Page % (Auto) 7 Eos % (Auto) 1 Baso % (Auto) 0 Neut # (Auto) 10.4 H Lymph # (Auto) 0.8 L Page # (Auto) 0.9 H Eos # (Auto) 0.1 Baso # (Auto) 0.0 Immature Gran # (Auto) 0.10 H Absolute Nucleated RBC 0.00 Immature Gran % 1 H Nucleated RBC % 0 Sodium 137 Potassium 4.6 Chloride 101 Carbon Dioxide 28.0 Anion Gap 8 BUN 16 Creatinine 0.5 L Estim Creat Clear Calc 81.6 eGFR > 60 BUN/Creatinine Ratio 32 H Glucose 89 Calculated Osmolality 274 L Calcium 8.0 L Corrected Calcium 8.8 Total Bilirubin 0.7 AST 27 ALT 60 H Alkaline Phosphatase 82 Total Protein 4.6 L Albumin 3.0 L Globulin 1.6 L Albumin/Globulin Ratio 1.9 ABG Interpretation ABG results: 03/30/25 04/03/25 08:27 08:32 ABG pH 7.34 L 7.45 ABG pCO2 33 42 ABG pO2 97 91 ABG HCO3 18 L 29 H ABG O2 Saturation 97 98 ABG Base Excess -7 L 5 H Quality Measures Quality Measures none Advance care planning discussed with:: patient Assessment & Plan Assessment Current Active Medications: Generic Name Dose Route Start Last Admin Trade Name Freq PRN Reason Stop Dose Admin Acetaminophen 650 mg 03/30/25 08:57 Acetaminophen 325 Mg Tablet PO 04/29/25 08:56 Q6H PRN Fever >101.5 Albuterol/Ipratropium 3 ml 03/30/25 11:00 04/15/25 06:11 Albuterol/Ipratropium (Duoneb) Rt Marisa 3 Ml Nebu INH 04/29/25 10:59 3 ml Q4HRRT WALDEMAR Administration Atorvastatin Calcium 10 mg 03/31/25 09:00 04/15/25 08:00 Atorvastatin Calcium 10 Mg Tablet PO 04/30/25 08:59 10 mg QDAY WALDEMAR Administration Budesonide 0.25 mg 04/09/25 10:15 04/15/25 06:11 Budesonide Rt 0.25 Mg/2 Ml Nebu INH 05/09/25 10:14 0.25 mg BIDRT WALDEMAR Administration Citalopram Hydrobromide 20 mg 03/31/25 09:00 04/15/25 08:00 Citalopram 20 Mg Tablet PO 04/30/25 08:59 20 mg QDAY WALDEMAR Administration Dextrose 25 ml 04/13/25 08:13 Dextrose 50%-Water Inj 50 Ml Syringe IV 05/13/25 08:12 Q15MIN PRN BG 50-70 responsive npo pt Dextrose 50 ml 04/13/25 08:13 Dextrose 50%-Water Inj 50 Ml Syringe IV 05/13/25 08:12 Q15MIN PRN BG <50 OR BG <70 & pt unresponsive Enoxaparin Sodium 40 mg 04/13/25 09:15 04/15/25 08:01 Enoxaparin Sod Inj 40 Mg/0.4 Ml Syringe SC 04/27/25 09:14 40 mg QDAY WALDEMAR Administration Gabapentin 300 mg 03/30/25 22:00 04/15/25 05:29 Gabapentin 300 Mg Capsule PO 04/29/25 21:59 300 mg TID WALDEMAR Administration Glucagon 1 mg 04/13/25 08:12 Glucagon Inj 1 Mg Vial IM Q15MIN PRN BG <70, and no IV access Guaifenesin 100 mg 03/30/25 17:18 04/06/25 08:27 Guaifenesin Syrup 200 Mg/10 Ml Udc PO 04/29/25 17:17 100 mg QID PRN Administration COUGH Protocol Lactulose 20 gm 04/13/25 08:30 04/15/25 08:00 Lactulose Syrup 20 Gm/30 Ml Udc PO 05/13/25 08:29 20 gm BID WALDEMAR Administration Protocol Ondansetron HCl 4 mg 03/30/25 08:57 03/30/25 10:11 Ondansetron Inj 2 Mg/Ml Inj 2 Ml IVP 04/29/25 08:56 4 mg Q6H PRN Administration NAUSEA OR VOMITING Protocol Pantoprazole Sodium 40 mg 03/30/25 16:00 04/15/25 08:01 Pantoprazole 40 Mg Tablet PO 04/29/25 15:59 40 mg QDAY WALDEMAR Administration Polyethylene Glycol 17 gm 04/10/25 09:00 04/15/25 08:01 Polyethylene Glycol 17 Gm Packet PO 05/10/25 08:59 17 gm QDAY WALDEMAR Administration Prednisone 40 mg 04/14/25 09:00 04/14/25 09:03 Prednisone 20 Mg Tablet PO 05/14/25 08:59 40 mg QDAY WALDEMAR Administration Sennosides 1 tab 04/10/25 09:00 04/15/25 08:01 Senna Tablet PO 05/10/25 08:59 1 tab QDAY WALDEMAR Administration Protocol Sodium Chloride 3 ml 03/30/25 06:30 Sodium Chloride Rt Marisa 0.9% 3 Ml Nebu INH 04/29/25 06:29 PRN PRN SOLN Plan Bebe Carrasco is 75 yr female with PMH of HTN, HLD, depression, neuropathy presenting with chief complaint of shortness of breath worsening in the past 2 days. Presented to ED on 03/30/25. She had difficulty obtaining oxygen tank and once delivered was only using for short time due to issues with tubing. Patient admitted for AHRF 2/2 pulmonary fibrosis exacerbation. #AHRF 2/2 pulmonary fibrosis exacerbation #CAP SOB worsening with home pulse ox readings 75-80%. Stated that a few weeks ago patient went to [place] for evaluation by mangle press catcher who diagnosed her with pulmonary fibrosis. There was a delay in delivery for home oxygen. Finally received the tank after seeing PCP in [place]. Was delivered past Sunday however used for only a short time due to tubing issues. She acutely deteriorated and presented to ED requiring BiPAP. She denies any history of smoking or exposure to smoke. CT chest from 04/02 showed worsening fibrosis with severe overlaying pneumonia. Had goals of care discussion with patient and due to poor long-term prognosis. Stated that they will talk with family. Cocci serology negative. ?DuoNeb q4hr -- IV Ceftriaxone 1 g daily (03/30-04/07) ? IV Doxycycline 100 mg BID (03/30-04/07) ?IV methylprednisone 40 mg TID (03/30- ?Pantoprazole 40 mg p.o. daily -continue to wean oxygen q2hr -budesonide INH 0.5 BID - Monitor fluid status and plan for diuresis if overloaded #Pulmonary arterial hypertension #Cor pulmonale 2/[address] Caceres consulted who did bedside echo. Estimated EF to be around 60%. There is evidence of enlarged pulmonary arteries seen on CT. Echo also showed dilated right side of the heart. Complete echo results showed EF 70%, hypercontractility of LV, RV dilation, moderate PAH 50-55 mmHg, cor pulmonale secondary to lung disease. -continue management as above -Appreciate cardiology recs #Electrolytes abnormalities #Hyperkalemia -daily BMP #Hypertension #Hyperlipidemia #Depression #Neuropathy Resumed home meds: ?Escitalopram 20 mg daily ? Gabapentin 300 mg TID ?Atorvastatin 10 mg daily ? Holding BP medication as blood pressure is soft -Ativan 0.5mg x1 PRN for anxiety #NSTEMI, type II-resolved #Elevated lactic acid-resolved Health maintenance: Dispo: tele for AHRF on HFNC, possible comfort care. FEN: regular DVT prophylaxis: Lovenox CODE STATUS: Full code Patient care was discussed with attending physician Dr. Sims. Ruchi Nino, PGY1 Attending Provider Attestation/Addendum I attest that I was physically present for the evaluation, physical examination, lab and imaging review of the patient with the residents. I discussed the case with the residents and agree with the findings and plans of care as documented above. At bedside today, patient states she is feeling more tired compared to yesterday. Continues to be on high flow nasal cannula, 30 L or 80 FiO2. Leukocytosis improved from 16.6 yesterday to 12.3 today. Continues to be on IV antibiotics and steroids. Cardiology following closely, appreciate recommendations. Abdominal x-ray showed large amount of stool throughout the colon, adjust bowel regimen. Due to high oxygen requirement, patient unable to be discharged to LTAC or home on hospice. We will discuss with family regarding goals of care. Prognosis is poor. Kami Sims MD
--- NOTE | 2025-04-15 10:56 | CHAP ---
Called to room by the nurse to pray with patient. was with her and had tears. I gave comfort and prayer.
[2025-04-15] MEDS: hydrOXYzine HCL 25 MG TABLET PO ×2 (13:39→22:12)
--- NOTE | 2025-04-15 17:05 | PC.SS ---
HOT PRESS OPERATOR confirmed goals of care meeting with patient's niece Mireya for 04-16-25 at 11:30 am. HOT PRESS OPERATOR notified resident, Dr. Kilpatrick; of meeting time.
[2025-04-15] MEDS: ACETAMINOPHEN 325 MG TABLET 650 MG PO (17:37)
[2025-04-16] VITALS (10 sets, daily range): BP systolic 119–139; BP diastolic 64–76; PULSE 70–94; RESP 15–32; TEMP 36.1–36.7; O2SAT 91–98; BMI 22.7
--- NOTE | 2025-04-16 01:24 | ESPR_ITS ---
RE: CLAUS ALVAREZ : 1950 DATE OF SERVICE: 04/15/2025 SUBJECTIVE: The patient is a 75-year-old lady admitted to the hospital with interstitial pneumonia and fibrosis, severe . She continues to feel about the same, not improving that much. She is not complaining of any chest pain or shortness of breath, but is still struggling to breathe. She is still on high-flow oxygen. OBJECTIVE: Vital Signs: Blood pressure 140/70, pulse rate is over 77, respiratory rate 19, is on high flow oxygen, 30 liters per minute. HEENT: Head is atraumatic. Neck: Supple. JVD ____ present. Chest: Symmetrical. Lungs: Mostly clear. No rales. Heart: S1 and S2 regular, distant. Abdomen: Thin and soft. Extremities: Mild edema on both feet. /RECTAL: Not performed. Neurologic: Normal. LABORATORY DATA: White count 12.3. Creatinine is normal. IMPRESSION: 1. Acute hypoxic respiratory failure secondary to interstitial pneumonia and lung disease. 2. Right heart failure, improved. 3. Moderate pulmonary hypertension secondary to cor pulmonale. 4. Electrolyte imbalance corrected. 5. Depression and anxiety. 6. Neuropathy. RECOMMENDATIONS: Continue medical management. Prognosis is poor. Continues to high-flow oxygen. Code status is discussed and is agreed to be DNR status. DT: : TT: 01:07:00 Ref: [id number] - TID: [id number]
[2025-04-16] MEDS: ALBUTEROL/IPRATROPIUM (Duoneb) RT SOL 3 ML NEBU INH ×4 (02:04→14:49)
[2025-04-16 05:32] LABS: Basophils % (Auto) 0 % (0-2.5); Eosinophils # (Auto) 0.3 Thou/mm3 (0.0-0.5); Eosinophils % (Auto) 2 % (0-10); Hematocrit 38.9 % (36.0-46.0); Hemoglobin 13.1 g/dL (12.0-16.0); Immature Granulocytes % (Auto) 1 % (0-0); Lymphocytes # (Auto) 0.9 Thou/mm3 (1.0-4.8); Lymphocytes % (Auto) 6 % (10-50); Mean Corpuscular HGB Conc 33.7 g/dl (31.0-37.0); Mean Corpuscular Volume 92 fL (80-100); Monocytes # (Auto) 0.8 Thou/mm3 (0.0-0.8); Monocytes % (Auto) 6 % (0-12); Neutrophils # (Auto) 11.4 Thou/mm3 (1.8-7.7); Neutrophils % (Auto) 84 % (37-80); Nucleated Red Blood Cell % 0 /100 WBC (0); Platelet Count 140 Thou/mm3 (140-440); RDW Standard Deviation 47.5 fL (36.4-46.3); Red Blood Count 4.23 Miln/mm3 (4.00-5.20); White Blood Count 13.5 Thou/mm3 (3.6-11.0)
[2025-04-16] MEDS: GABAPENTIN 300 MG CAPSULE PO (05:40)
[2025-04-16 06:00] LABS: Anion Gap 8 (7-16); BUN/Creatinine Ratio 40 Ratio (12-20); Blood Urea Nitrogen 20 mg/dL (9-23); Calcium 7.9 mg/dL (8.3-10.6); Carbon Dioxide 28.7 mMol/L (20.0-31.0); Chloride 102 mMol/L (98-107); Creatinine (Component) 0.5 mg/dL (0.6-1.3); Estimated Creatinine Clearance 74.5 mL/min (>60); Glucose 105 mg/dL (74-106); Osmolality,Calculated 280 (275-295); Sodium 139 mMol/L (136-145); eGFR > 60 See Note
[2025-04-16] MEDS: BUDESONIDE RT 0.25 MG/2 ML NEBU INH (06:42)
--- NOTE | 2025-04-16 08:24 | PD.PUCONS ---
[facility] Pulmonology Consult Data of Consult Requesting Physician: Kami Sims MD Primary Care Provider: Catracho Vicente MD Consult Narrative History of present illness: Patient examined at bedside. No events overnight, patient complains of feeling more tired. Still has not had BM. Today she is emotional and having a hard time coping. Nursing called bit bender services. No significant change in oxygen requirements. She is saturating 96% O2 on L HFNC at 85% FiO2 at bedside. Labs show improved leukocytosis WBC at 12, CMP unremarkable. KUB showed large amounts of stool through entired colon. Will consider giving enema again if patient agrees. Steroids 40mg TID and budesonide INH in setting of her pulmonary fibrosis. Encouraged to use bedside spirometry. Goal oxygenation 92-94%. services coordinator team looked into possible LTAC placement. However, facility stated that they are unable to accommodate transfer while patient remains on high flow nasal cannula. Will speak with social service manager team and family about comfort care. Family is aware of poor retirement prognosis and updated daily. Questions answered to full. cc:: cc: Kami Sims MD Meds Home Medications and Allergies Home Medications ?Medication ?Instructions ?Recorded ?Confirmed ?Type atorvastatin 10 mg tablet 10 mg PO QDAY 06/18/23 03/30/25 History hydrocodone 7.5 mg-acetaminophen 1 tab PO Q6H PRN Back Pain 06/18/23 03/30/25 History 325 mg tablet losartan 50 mg tablet 50 mg PO BID 06/18/23 03/30/25 History omeprazole 20 mg capsule,delayed 20 mg PO QDAY 06/18/23 03/30/25 History release citalopram 20 mg tablet 20 mg PO QDAY 03/30/25 03/30/25 History fluticasone fur. 200 mcg-umeclid 1 inh inhalation Q24H 03/30/25 03/30/25 History 62.5 mcg-vilant 25 mcg inhalat.powder (Trelegy Ellipta) gabapentin 300 mg capsule 300 mg PO TID 03/30/25 03/30/25 History Allergies Allergy/AdvReac Type Severity Reaction Status Date / Time meperidine Allergy Mild Anxiety Verified 03/30/25 06:14 Exam Vital Signs Temp Pulse Resp BP Pulse Ox O2 Del Method O2 Flow Rate 97.0 F 75 24 H 135/73 H 97 High Flow Nasal Cannula 40 04/16/25 04:00 04/16/25 06:45 04/16/25 06:45 04/16/25 04:00 04/16/25 06:45 04/16/25 04:00 04/16/25 06:45 FiO2 85 04/16/25 06:45 Results - [employer] Labs 04/16/25 04:55 04/16/25 04:55 Labs: Short CBC 04/16/25 Range/Units 04:55 WBC 13.5 H (3.6-11.0) Thou/mm3 Hgb 13.1 (12.0-16.0) g/dL Hct 38.9 (36.0-46.0) % Plt Count 140 D (140-440) Thou/mm3 BMP 04/16/25 04:55 Sodium 139 Potassium 4.0 D Chloride 102 Carbon Dioxide 28.7 BUN 20 Creatinine 0.5 L Glucose 105 Calcium 7.9 L ABG Interpretation ABG results: 03/30/25 04/03/25 08:27 08:32 ABG pH 7.34 L 7.45 ABG pCO2 33 42 ABG pO2 97 91 ABG HCO3 18 L 29 H ABG O2 Saturation 97 98 ABG Base Excess -7 L 5 H Assessment & Plan Problem List (1) Pulmonary fibrosis: Status: Acute (2) Respiratory failure: Status: Acute (3) Vaginal pessary in situ: Status: Acute Additional Plan Additional Plan: PLAN: See MD orders and discussion above. Will continue supportive care of the organ system problems, diagnoses, and failures noted above. [A central line continues to be necessary for infusion of medications and IV fluids, it is to be removed when other adequate venous access is accomplished.] [Cannot be safely managed without restraints as potential for harm secondary to inadvertent movement and loss of tubes and lines outweighs the burdens of restraint.] This patient is critically ill and required [] minutes of my time to provide documentation, evaluate, manage and maintain or prevent deterioration of the organ systems and problems noted above. This critical care time does not include time I spent performing procedures that are reported separately. [If john catheter present, it remains necessary to monitor urine output continuously, and/or divert urine from the skin. It will be removed per policy when it is not needed for these purposes.] Provider Notation Provider Notation: Although this document has been carefully reviewed, there may still be some phonetic and other typographical errors. These errors are purely grammatical due to imperfections in the software program and should not be construed in any way to compromise the substance of the patient's medical care during this visit. Thank you for the opportunity and privilege in assisting you with this patient's care and management. (2) Respiratory failure Qualifiers: Chronicity: acute on chronic
[2025-04-16] MEDS: CITALOPRAM 20 MG TABLET PO (09:08)
--- NOTE | 2025-04-16 11:33 | PC.SS ---
4230 Goals of Care meeting held to discuss comfort care. Present are KAYE Muñoz, Dr. Sims, Dr. Monreal, and Dr. Nino. Also at bedside are patient?s spouse Nakul and patient?s niece. Patient requesing to initiate comfort care here, at [facility]. Family agreed to inform hospitalist team when to begin comfort care measures.
[2025-04-16] MEDS: MORPHINE SULF INJ 10 MG/ML VIAL 2 MG IVP ×4 (12:07→22:47)
--- NOTE | 2025-04-16 13:24 | PD.RESPRO ---
Documentation for date of: 04/16/25 Subjective Subjective Interval history: Patient examined at bedside. No events overnight. Feeling more fatigued and tired on high flow nasal cannula. No major improvement with settings at 40 L/min on 85% FiO2 saturating 97%. Family was at bedside and hospitalist team along with older adult social work specialist spoke with the family and patient about pursuing comfort care measures. Patient no longer expressing interest in trying to go home as she is starting to feel uncomfortable. Therefore we will start comfort care measures when patient is ready. Morphine 2mg IV x1 this morning for respiratory distress. Exam Vital Signs Temp Pulse Resp BP Pulse Ox O2 Del Method O2 Flow Rate 97.8 F 81 28 H 139/73 H 96 High Flow Nasal Cannula 40 04/16/25 12:00 04/16/25 12:00 04/16/25 12:00 04/16/25 12:00 04/16/25 12:00 04/16/25 12:00 04/16/25 12:00 FiO2 80 04/16/25 12:00 Narrative Exam General: Elderly female, on HFNC, anxious, cooperative on highflow Rest of physical exam deferred today due to comfort care. Objective Labs 04/16/25 04:55 04/16/25 04:55 Labs: Laboratory Results - last 24 hr 04/16/25 04:55 WBC 13.5 H RBC 4.23 Hgb 13.1 Hct 38.9 MCV 92 MCH 31.0 MCHC 33.7 RDW Std Deviation 47.5 H Plt Count 140 D Neut % (Auto) 84 H Lymph % (Auto) 6 L Mitchell % (Auto) 6 Eos % (Auto) 2 Baso % (Auto) 0 Neut # (Auto) 11.4 H Lymph # (Auto) 0.9 L Mitchell # (Auto) 0.8 Eos # (Auto) 0.3 Baso # (Auto) 0.0 Immature Gran # (Auto) 0.10 H Absolute Nucleated RBC 0.00 Immature Gran % 1 H Nucleated RBC % 0 Sodium 139 Potassium 4.0 D Chloride 102 Carbon Dioxide 28.7 Anion Gap 8 BUN 20 Creatinine 0.5 L Estim Creat Clear Calc 74.5 eGFR > 60 BUN/Creatinine Ratio 40 H Glucose 105 Calculated Osmolality 280 Calcium 7.9 L ABG Interpretation ABG results: 03/30/25 04/03/25 08:27 08:32 ABG pH 7.34 L 7.45 ABG pCO2 33 42 ABG pO2 97 91 ABG HCO3 18 L 29 H ABG O2 Saturation 97 98 ABG Base Excess -7 L 5 H Quality Measures Quality Measures none Advance care planning discussed with:: patient, spouse and other Assessment & Plan Assessment Current Active Medications: Generic Name Dose Route Start Last Admin Trade Name Freq PRN Reason Stop Dose Admin Acetaminophen 650 mg 03/30/25 08:57 04/15/25 17:37 Acetaminophen 325 Mg Tablet PO 04/29/25 08:56 650 mg Q6H PRN Administration Fever >101.5 Albuterol/Ipratropium 3 ml 03/30/25 11:00 04/16/25 10:53 Albuterol/Ipratropium (Duoneb) Rt Marisa 3 Ml Nebu INH 04/29/25 10:59 3 ml Q4HRRT WALDEMAR Administration Atorvastatin Calcium 10 mg 03/31/25 09:00 04/16/25 09:15 Atorvastatin Calcium 10 Mg Tablet PO 04/30/25 08:59 Not Given QDAY WALDEMAR Budesonide 0.25 mg 04/09/25 10:15 04/16/25 06:42 Budesonide Rt 0.25 Mg/2 Ml Nebu INH 05/09/25 10:14 0.25 mg BIDRT WALDEMAR Administration Citalopram Hydrobromide 20 mg 03/31/25 09:00 04/16/25 09:08 Citalopram 20 Mg Tablet PO 04/30/25 08:59 20 mg QDAY WALDEMAR Administration Dextrose 25 ml 04/13/25 08:13 Dextrose 50%-Water Inj 50 Ml Syringe IV 05/13/25 08:12 Q15MIN PRN BG 50-70 responsive npo pt Dextrose 50 ml 04/13/25 08:13 Dextrose 50%-Water Inj 50 Ml Syringe IV 05/13/25 08:12 Q15MIN PRN BG <50 OR BG <70 & pt unresponsive Enoxaparin Sodium 40 mg 04/13/25 09:15 04/16/25 09:16 Enoxaparin Sod Inj 40 Mg/0.4 Ml Syringe SC 04/27/25 09:14 Not Given QDAY WALDEMAR Gabapentin 300 mg 03/30/25 22:00 04/16/25 05:40 Gabapentin 300 Mg Capsule PO 04/29/25 21:59 300 mg TID WALDEMAR Administration Glucagon 1 mg 04/13/25 08:12 Glucagon Inj 1 Mg Vial IM Q15MIN PRN BG <70, and no IV access Guaifenesin 100 mg 03/30/25 17:18 04/06/25 08:27 Guaifenesin Syrup 200 Mg/10 Ml Udc PO 04/29/25 17:17 100 mg QID PRN Administration COUGH Protocol Hydroxyzine HCl 25 mg 04/16/25 11:24 Hydroxyzine Hcl 25 Mg Tablet PO 05/16/25 11:23 DAILY PRN ANXIETY Lactulose 20 gm 04/13/25 08:30 04/16/25 09:16 Lactulose Syrup 20 Gm/30 Ml Udc PO 05/13/25 08:29 Not Given BID WALDEMAR Protocol Ondansetron HCl 4 mg 03/30/25 08:57 03/30/25 10:11 Ondansetron Inj 2 Mg/Ml Inj 2 Ml IVP 04/29/25 08:56 4 mg Q6H PRN Administration NAUSEA OR VOMITING Protocol Pantoprazole Sodium 40 mg 03/30/25 16:00 04/16/25 09:15 Pantoprazole 40 Mg Tablet PO 04/29/25 15:59 Not Given QDAY WALDEMAR Polyethylene Glycol 17 gm 04/10/25 09:00 04/16/25 09:15 Polyethylene Glycol 17 Gm Packet PO 05/10/25 08:59 Not Given QDAY [facility] Prednisone 40 mg 04/14/25 09:00 04/16/25 09:16 Prednisone 20 Mg Tablet PO 05/14/25 08:59 Not Given QDAY WALDEMAR Sennosides 1 tab 04/10/25 09:00 04/16/25 09:15 Senna Tablet PO 05/10/25 08:59 Not Given QDAY [facility] Protocol Sodium Chloride 3 ml 03/30/25 06:30 Sodium Chloride Rt Marisa 0.9% 3 Ml Nebu INH 04/29/25 06:29 PRN PRN SOLN Nathan Bebe Carrasco is 75 yr female with PMH of HTN, HLD, depression, neuropathy presenting with chief complaint of shortness of breath worsening in the past 2 days. Presented to ED on 03/30/25. She had difficulty obtaining oxygen tank and once delivered was only using for short time due to issues with tubing. Patient admitted for AHRF 2/2 pulmonary fibrosis exacerbation. #AHRF 2/2 pulmonary fibrosis exacerbation #CAP SOB worsening with home pulse ox readings 75-80%. Stated that a few weeks ago patient went to [place] for evaluation by administrative liaison who diagnosed her with pulmonary fibrosis. There was a delay in delivery for home oxygen. Finally received the tank after seeing PCP in [place]. Was delivered past Sunday however used for only a short time due to tubing issues. She acutely deteriorated and presented to ED requiring BiPAP. She denies any history of smoking or exposure to smoke. CT chest from 04/02 showed worsening fibrosis with severe overlaying pneumonia. Had goals of care discussion with patient and due to poor long-term prognosis. Stated that they will talk with family. Cocci serology negative. ?DuoNeb q4hr -- IV Ceftriaxone 1 g daily (03/30-04/07) ? IV Doxycycline 100 mg BID (03/30-04/07) ?IV methylprednisone 40 mg TID (03/30- ?Pantoprazole 40 mg p.o. daily -continue to wean oxygen q2hr -budesonide INH 0.5 BID - Monitor fluid status and plan for diuresis if overloaded #Pulmonary arterial hypertension #Cor pulmonale 2/[address] Caceres consulted who did bedside echo. Estimated EF to be around 60%. There is evidence of enlarged pulmonary arteries seen on CT. Echo also showed dilated right side of the heart. Complete echo results showed EF 70%, hypercontractility of LV, RV dilation, moderate PAH 50-55 mmHg, cor pulmonale secondary to lung disease. -continue management as above -Appreciate cardiology recs #Electrolytes abnormalities #Hyperkalemia-resolved -daily BMP #Hypertension #Hyperlipidemia #Depression #Neuropathy Resumed home meds: ?Escitalopram 20 mg daily ? Gabapentin 300 mg TID ?Atorvastatin 10 mg daily ? Holding BP medication as blood pressure is soft -PO hydroxazine 25mg PRN for anxiety #NSTEMI, type II-resolved #Elevated lactic acid-resolved Health maintenance: Dispo: tele for AHRF on HFNC, possible comfort care. FEN: regular DVT prophylaxis: Lovenox CODE STATUS: Full code Patient care was discussed with attending physician Dr. Sims. Ruchi Nino, PGY1 Attending Provider Attestation/Addendum I attest that I was physically present for the evaluation, physical examination, lab and imaging review of the patient with the residents. I discussed the case with the residents and agree with the findings and plans of care as documented above. At bedside today, patient appears fatigued, oxygen requirement went up to 40 L/min, 85 FiO2 of high flow nasal cannula. Had a family meeting with the patient, her , niece at bedside along with internal medicine team, case management. Discussed in details regarding the patient's prognosis, management options including continuation of aggressive medical management, trial of nonrebreather mask and comfort care at home, initiation of comfort care at hospital. Patient and family wished to start comfort care measures in the hospital. Comfort care measures are ordered, will start in the evening once the family is ready. Kami Sims MD
[2025-04-16] MEDS: SCOPOLAMINE 1 MG TDSY TOP (20:13)
[2025-04-16] MEDS: Morphine IV Drip 100mg/100ml 100 ML IV (20:14)
--- NOTE | 2025-04-16 21:17 | ESPR_ITS ---
RE: CLAUS ALVAREZ : 1950 DATE OF SERVICE: 04/16/2025 Claus Alvarez is doing better today, but she is about the same. Not making much progress. She is very tired and short of breath. No major improvement. She is now on 4 liters nasal cannula, 85% FiO2, saturating barely 97%. She is still complaining of a lot of shortness of breath with minimal activity, cannot do much of any activity. Code status was discussed by the attending physician. Apparently, the patient did decide to go to comfort care, which appears to be appropriate as she is not improving much over the last few days. Oxygen requirements remain high. IMPRESSION/ASSESSMENT: 1. Acute hypoxic respiratory failure secondary to interstitial pneumonia and acute respiratory distress syndrome and interstitial fibrosis. 2. End-stage lung disease. 3. Pulmonary hypertension secondary to lung disease. RECOMMENDATIONS: Continue medical management. Oxygen support and comfort care appears to be appropriate as she has not responded to steroid therapy. DT: 20:51:22 TT: 21:17:00 Ref: [id number] - TID: [id number]
[2025-04-17] VITALS (7 sets, daily range): BP systolic 96–129; BP diastolic 55–66; PULSE 98–113; RESP 9–23; TEMP 36–36.4; O2SAT 70–79; BMI 22.7
[2025-04-17] MEDS: LORazepam 2 MG/ML VIAL 1 MG IVP ×2 (08:29→14:44)
--- NOTE | 2025-04-17 08:55 | PC.SS ---
Follow up note: Patient currently on comfort measures
--- NOTE | 2025-04-17 09:31 | PD.RESPRO ---
Documentation for date of: 04/17/25 Subjective Subjective Interval history: Examined at bedside. No acute overnight event. Yesterday comfort care measure initiated, patient apears comfortable, oxygen as needed for comfort, receiving morphine drip along with rest of the comfort measures. Exam Vital Signs Temp Pulse Resp BP Pulse Ox O2 Del Method O2 Flow Rate 97.1 F 98 21 H 129/66 79 L High Flow Nasal Cannula 30 04/17/25 08:00 04/17/25 08:00 04/17/25 08:00 04/17/25 08:00 04/17/25 08:00 04/17/25 08:00 04/17/25 08:00 FiO2 70 04/17/25 08:00 Narrative Exam General: Elderly female, on HFNC, anxious, cooperative on highflow Rest of physical exam deferred today due to comfort care. Objective Labs 04/16/25 04:55 04/16/25 04:55 ABG Interpretation ABG results: 03/30/25 04/03/25 08:27 08:32 ABG pH 7.34 L 7.45 ABG pCO2 33 42 ABG pO2 97 91 ABG HCO3 18 L 29 H ABG O2 Saturation 97 98 ABG Base Excess -7 L 5 H Quality Measures Quality Measures none Advance care planning discussed with:: patient and spouse Assessment & Plan Assessment Current Active Medications: Generic Name Dose Route Start Last Admin Trade Name Freq PRN Reason Stop Dose Admin Acetaminophen 650 mg 03/30/25 08:57 04/15/25 17:37 Acetaminophen 325 Mg Tablet PO 04/29/25 08:56 650 mg Q6H PRN Administration Fever >101.5 Artificial Tears 1 drop 04/16/25 14:23 Artificial Tears 225 Drop/15 Ml Btl BOTH EYES 05/16/25 14:22 Q4HR PRN Dry eyes Dextrose 25 ml 04/13/25 08:13 Dextrose 50%-Water Inj 50 Ml Syringe IV 05/13/25 08:12 Q15MIN PRN BG 50-70 responsive npo pt Dextrose 50 ml 04/13/25 08:13 Dextrose 50%-Water Inj 50 Ml Syringe IV 05/13/25 08:12 Q15MIN PRN BG <50 OR BG <70 & pt unresponsive Glucagon 1 mg 04/13/25 08:12 Glucagon Inj 1 Mg Vial IM Q15MIN PRN BG <70, and no IV access Hydroxyzine HCl 25 mg 04/16/25 11:24 Hydroxyzine Hcl 25 Mg Tablet PO 05/16/25 11:23 DAILY PRN ANXIETY Morphine Sulfate 100 mls @ 1 mls/hr 04/16/25 16:52 04/16/25 22:59 Morphine Sulfate Iv Drip 100mg/100ml IV 04/21/25 16:51 2 mg/hr .Q24H PRN 2 mls/hr PAIN (COMFORT CARE) Titration Protocol 1 MG/HR Lorazepam 1 mg 04/16/25 14:23 04/17/25 08:29 Lorazepam 2 Mg/Ml Vial IVP 04/21/25 14:22 1 mg Q6HR PRN Administration ANXIETY Morphine Sulfate 2 mg 04/16/25 14:23 04/16/25 22:47 Morphine Sulf Inj 10 Mg/Ml Vial IVP 04/21/25 14:22 2 mg Q30M PRN Administration PAIN Ondansetron HCl 4 mg 03/30/25 08:57 03/30/25 10:11 Ondansetron Inj 2 Mg/Ml Inj 2 Ml IVP 04/29/25 08:56 4 mg Q6H PRN Administration NAUSEA OR VOMITING Protocol Scopolamine 1 mg 04/16/25 14:30 04/16/25 20:13 Scopolamine 1 Mg Tdsy TOP 05/16/25 14:29 1 mg Q3D WALDEMAR Administration Sodium Chloride 3 ml 03/30/25 06:30 Sodium Chloride Rt Marisa 0.9% 3 Ml Nebu INH 04/29/25 06:29 PRN PRN SOLN Plan Bebe Carrasco is 75 yr female with PMH of HTN, HLD, depression, neuropathy presenting with chief complaint of shortness of breath worsening in the past 2 days. Presented to ED on 03/30/25. She had difficulty obtaining oxygen tank and once delivered was only using for short time due to issues with tubing. Patient admitted for AHRF 2/2 pulmonary fibrosis exacerbation. During hospital stay patient received IV antibiotics along with a steroids systemic and breathing, however patient condition continued to progressively worsen. In-house pulmonology curbside contacted, management, plan and future prognosis was discussed in details. During hospital stay we were trying to wean off from oxygen, however unsuccessful. Many family discussions was held, poor prognosis and management was discussed in details. Patient herself was alert oriented x 3 and was able to make her own decision. She stated she does not want any aggressive measures and expressed wishes to be comfortable.. , niece who is the power of contract attorney was at the bedside. Yesterday we discussed the plan, poor prognosis and patient and family decided to transition patient to comfort care in a hospital setting. Patient wished was respected . Yesterday comfort care measures was initiated #AHRF 2/2 pulmonary fibrosis exacerbation #CAP #Pulmonary arterial hypertension #Cor pulmonale 2/2 pulmonary fibrosis #Electrolytes abnormalities #Hypertension #Hyperlipidemia #Depression #Neuropathy Comfort care Measures initiated Health maintenance: Dispo:telemetry FEN: comfort feed DVT prophylaxis: not indicated CODE STATUS: Full code Patient care was discussed with attending physician Dr. Bethany Monreal MD PGY-2 I have carefully reviewed this document. Due to imperfections in the voice software, there could be grammatical errors including phonetic/typographic errors. This in no way compromises the medical care the patient is receiving Attending Provider Attestation/Addendum I attest that I was physically present for the evaluation, physical examination, lab and imaging review of the patient with the residents. I discussed the case with the residents and agree with the findings and plans of care as documented above. Patient has been started on comfort care measures as per family's wishes since yesterday evening. At bedside, appears comfortable. We will continue with comfort care measures. Kami Sims MD
[2025-04-17] MEDS: MORPHINE SULF INJ 10 MG/ML VIAL 2 MG IVP ×3 (09:58→18:10)
--- NOTE | 2025-04-17 12:49 | ESPR_ITS ---
RE: CLAUS ALVAREZ : 1950 DATE OF SERVICE: 04/17/2025 SUBJECTIVE: Claus Alvarez is an unfortunate 75-year-old with a history of interstitial lung disease and pneumonia, not improving, hypoxic respiratory failure primarily decided to make her comfort care, which is appropriate since she is not making any progress. I discussed with the family about all the options, and I do agree with the treatment plan currently as she is not improving at all with interstitial fibrosis and extensive pneumonia and ARDS. OBJECTIVE: General: Drowsy and lethargic. Vital Signs: Blood pressure 130/70, pulse 100, respirations 23, high-flow oxygen is continued. Neck: Supple. Lungs: Decreased breath sounds. Heart: Sounds regular and distant. Abdomen: Thin and soft. ASSESSMENT: 1. Extensive interstitial pneumonia and acute respiratory distress syndrome, not improving, requiring high-flow oxygen. 2. Heart failure with preserved ejection fraction. RECOMMENDATIONS: Continue supportive care and comfort care. I agree with the family's decision as well. DT: 11:19:02 TT: 12:48:00 Ref: [id number] - TID: [id number]
--- NOTE | 2025-04-17 17:15 | PC.NURSE ---
1715 Transfered patient to [facility] unit.
--- NOTE | 2025-04-17 17:28 | PC.NURSE ---
assumed care of patient morphine drip 61mls.
--- NOTE | 2025-04-17 17:40 | PC.NURSE ---
at bedside with patient
--- NOTE | 2025-04-17 19:15 | PC.NURSE ---
Report received, pt currently on comfort care morphine drip infusing per protocol, at rate of 3ml/mg per hour, respiratory rated decreased 8-9.
--- NOTE | 2025-04-17 19:20 | PC.NURSE ---
If pt to pass tonight contact Mireya Pearsons-niece, would like to come in to say one last goodbye.
--- NOTE | 2025-04-17 21:04 | PC.NURSE ---
Dr. Rodgers here to pronounce pt.
--- NOTE | 2025-04-17 21:20 | PD.DPN ---
Documentation for date of: 04/17/25 Pronouncement Note Date and Time of Date of : 04/17/25 Time of : 21:04 PCOD Preliminary cause of : Cardiopulmonary arrest Contributing Factors (1) Pulmonary fibrosis: (2) Respiratory failure: (3) Vaginal pessary in situ: Summary Additional details: 04/17/2025: Called to see patient for unresponsiveness on comfort care. On exam the patient did not respond to verbal or physical stimuli. Absent heart and breath sounds. Absent peripheral pulses. Pupils are fixed and dilated. Patient pronounced at 21:04. Dr. Lopes notified. Next of kin/family Mireya Carrasco, power of staff attorney notified.? Additional Data Confirmation of : no pulse, no respirations, no heart sounds, pupils fixed and dilated and other Family: contacted (iMreya Carrasco (POA) contacted by telephone) Additional persons at bedside: other Attending/PCP notified?: Yes Attending physician: Santi Lopes MD Was code activated?: No Autopsy requested?: No financial compliance examiner notified?: No Organ bank notified?: No Advance directives: Yes
--- NOTE | 2025-04-17 21:35 | PC.NURSE ---
Donor network contacted spoke with Blanca KLINE #[phone], pt possible tissue donation will contact back in one hour
--- NOTE | 2025-04-17 21:40 | PC.NURSE ---
Spoke with pt niece, decided that he was not going to come, ok to release remains to home.
--- NOTE | 2025-04-17 21:45 | PC.NURSE ---
Wasted 50ml/mg morphine with Elsi RESTREPO
--- NOTE | 2025-04-18 00:08 | PC.NURSE ---
[facility] here to picker and packer remains.
--- NOTE | 2025-04-18 15:34 | DES_ITS ---
<Statement entered by Kami Sims MD - 04/19/25 17:33> I discussed the case with the residents and agree with the findings and plans of care as documented below. Kami Sims MD Documentation for date of: 04/18/25 Summary Date and Time Date of admission: 03/30/25 08:57 Date of : 04/17/25 Time of : 21:04 Summary Details: 04/17/2025: Called to see patient for unresponsiveness on comfort care. On exam the patient did not respond to verbal or physical stimuli. Absent heart and kassi ath sounds. Absent peripheral pulses. Pupils are fixed and dilated. Patient pronounced at 21:04. Dr. Lopes notified. Next of kin/family Mireya Carrasco power of deputy attorney general notified.? Hospital Course: Patient was 75 yr old female with PMH of HTN, HLD, depression, neuropathy who presented to ED on 03/30/25 due to SOB. Few weeks before admission patient had gone to [place] for evaluation by gym instructor where she was diagnosed with pulmonary fibrosis. Patient was to receive home oxygen which was never delivered. Eventually went to clinic in [place] for new order of home oxygen. Following the delivery, patient was having hard time keeping the mask on due to a smell in the tubes which was making her nauseous and causing headaches. Patient stopped using oxygen and acutely deteriorated over few days. Pulse ox readings ranged from 75-80%. Cardiology Dr. Caceres was consulted for evaluation of her worsening acute hypoxic respiratory failure. Echo showed normal LV function, RV dilation, cor pulmonale possibly from underlying lung disease. She was started on steroids, pantoprazole, IV antibiotics for treatment of pulmonary fibrosis and pneumonia. During hospitalization, her oxygen requirements increased and was eventually transitioned to high flow nasal cannula. Hospitalist team consulted with ICU who agreed with this treatment regimen. Also considered palliative care as CT of chest showed severe pulmonary fibrosis pattern. Her prognosis remained poor with no improvement of symptoms. Family at bedside agreed to pursue home hospice. However, due to high oxygen requirement patient was unable to be discharged to LTAC or home on hospice. She remained in the hospital for 2 weeks on steroids with completion of IV antib iotics. Titrating the high flow to an appropriate amount for transport was proving to be difficult. We held goals of care discussion with family, healthcare social worker, and hospitalist team. Patient endorsed fatigue and unwillingness to prolong life in this uncomfortable state. Decision was made to start comfort care measures. She was started on morphine drip and taken off high flow nasal cannula. Patient at 2104 on 04/17/2025. Additional Data Attending physician: Kami Sims MD Visit Providers Provider Primary care physician: Catracho Vicente MD Consults: 03/30/25 09:37 Consult to Cardiology Stat Comment: Consulting Provider: Lindsey Caceres 04/03/25 15:59 Referral Hospice Routine Comment: Diagnosis Contributing Factors (1) Pulmonary fibrosis: (2) Respiratory failure: (3) Vaginal pessary in situ: Discharge Plan Plan Patient Disposition: Patient condition on transfer: Benefits outweigh risks Prescriptions/Referrals Referrals: Catracho Vicente MD [Primary Care Provider] - Patient/Caregiver Discharge Instructions Print Language: Romanian
== END 2025-04-17 21:04 | disposition expired | DRG 196 ==
LOC: SERX 08:12 → SERHOLD 09:26 → S2NX 15:13 → S3SX 04-17 17:22
PROVIDERS: Student in an Organized Health Care Education/Training Program; Admitting Provider Internal Medicine; Emergency Provider Emergency Medicine; PCP Family Medicine; Visit Provider Student in an Organized Health Care Education/Training Program
DX: J84.10 Pulmonary fibrosis, unspecified (principal); I21.A1 Myocardial infarction type 2; J12.9 Viral pneumonia, unspecified; J96.01 Acute respiratory failure with hypoxia; E87.20 Acidosis, unspecified; I50.30 Unspecified diastolic (congestive) heart failure; E78.5 Hyperlipidemia, unspecified; E87.5 Hyperkalemia; F32.A Depression, unspecified; F41.9 Anxiety disorder, unspecified; G62.9 Polyneuropathy, unspecified; I11.0 Hypertensive heart disease with heart failure; I27.21 Secondary pulmonary arterial hypertension; I48.91 Unspecified atrial fibrillation; J84.112 Idiopathic pulmonary fibrosis; Z51.5 Encounter for palliative care; Z66 Do not resuscitate; Z79.899 Other long term (current) drug therapy; N81.10 Cystocele, unspecified; K59.00 Constipation, unspecified; K44.9 Diaphragmatic hernia without obstruction or gangrene; J84.89 Other specified interstitial pulmonary diseases; I50.82 Biventricular heart failure; I27.81 Cor pulmonale (chronic); Z87.01 Personal history of pneumonia (recurrent); Z88.8 Allergy status to other drugs, medicaments and biological substances; I46.8 Cardiac arrest due to other underlying condition
CPT/HCPCS: 36415; 36600; 71045; 71250; 74018; 80048; 80053; 80069; 82803; 83605; 83735; 83880; 84100; 84132; 84145; 84484; 85025; 86038; 86331; 86635; 87040; 87400; 87811; 93005; 93306; 94640; 94644; 94660; 96361; 96365; 96366; 96375; 99291; A9270; J0696; J1650; J1815; J1938; J2060; J2270; J2405; J2919; J3490; J7030; J7512; J7999